=== PATIENT | female | born 1970 | race Caucasian/White ===

== ENCOUNTER 2024-04-10 07:34 | Emergency (ER) | payer OTHER, SELFPAY ==
--- NOTE | ~2024-04-10 | US_ITS ---
EXAMINATION: US LOWER EXTREMITY VEINS LIMITED FOLLOW UP RIGHT HISTORY: pain, swelling hx of PE COMPARISON: There are no prior studies for comparison. TECHNIQUE: Duplex and color Doppler sonographic examination of the deep venous system of the right lower extremity was performed. FINDINGS: The common femoral, superficial femoral, and popliteal veins are patent demonstrating normal compressibility, spontaneous flow, and augmentation. There is a normal color and spectral Doppler waveform appearance of the visualized deep venous system above the knee. The posterior tibial and peroneal veins are patent. US/US venous duplex LE RT IMPRESSION: No evidence of acute DVT in the right lower extremity. Electronically signed by: Justo Rodriguez MD 04/10/2024 09:06 AM AARON
[2024-04-10 07:37] VITALS: BP 209/83; PULSE 87; RESP 16; TEMP 36.7; O2SAT 98; BMI 34.8
--- NOTE | 2024-04-10 07:54 | ED_ITS ---
HPI - Extremity Problem General Chief complaint: Extremity Problem Stated complaint: blood clot? Time Seen by Provider: 04/10/24 07:45 Source: patient and old records reviewed Mode of arrival: ambulatory Limitations: no limitations History of Present Illness ED Provider: AWILDA IRELAND Narrative: 53 yo female with PMH of varicose veins and PE in 2006 was on thinner for 6 months states it was unprovoked but she had negative heme work up. She notes she is currently undergoing work up for breast cancer and just had double mastectomy at [facility] 03/25 - she is healing well. She did complete 6 days of lovenox therapy. She denies CP/SOB. She states for the past few days R posterior knee pain and swelling along lateral varicose vein. She wants to make sure it is not a clot. She is not sure if she hit it against something. Complaint: extremity pain Onset (ago): day(s) (couple) Pain Consistency: constant Location: right and lower extremity Quality: dull Radiation: none Relieving factors: nothing Exacerbating factors: palpation Associated symptoms: denies other symptoms Context: other (hx of PE and recent surgery 03/25/24) Related Data Previous Rx's ?Medication ?Instructions ?Recorded apixaban 5 mg (74 tabs) tablets in 5 mg PO BID #74 ea 04/10/24 a dose pack (Eliquis DVT-PE Treat 30D Start) Allergies Allergy/AdvReac Type Severity Reaction Status Date / Time prochlorperazine Allergy Involuntary Verified 04/10/24 07:40 [From Compazine] Spasms Sulfa (Sulfonamide Allergy Rash Verified 04/10/24 07:40 Antibiotics) Review of Systems 2 Review of Systems: Constitutional : No Fever, No Chills ENT/Mouth : No Ear Pain, No Hoarseness, No sore throat Eyes: No Eye Pain, No Swelling, No Redness, No Foreign Body Cardiovascular : No Chest Pain, No SOB Respiratory : No Cough, No Dyspnea Gastrointestinal : No Nausea, No Vomiting, No Diarrhea, No abdominal Pain Genitourinary : No Dysuria, No Hematuria Musculoskeletal : positive joint pain, No Myalgias, No Joint Swelling Skin : No Skin lacerations, No rash Neuro : No Weakness, No Numbness, No Loss of Consciousness, No Dizziness, No Headache All other systems reviewed and are negative COUNTS INCLUDE 234 BEDS AT THE [facility] Past Medical History Attestation statement: The following information was validated with the patient. Medical History Pulmonary embolus Varicose vein of leg Breast cancer Social History Social History (Updated 04/10/24 @ 08:02 by Miranda Parish DO) Patient Tobacco Use Status: Never used Tobacco Advance Directives: Yes Advance Directives Information Provided: Yes Advance Directives on File: No Physical Exam 2 Vital Signs: Vital Signs: Last Vital Signs Temp 98.0 F 04/10/24 10:56 Pulse 87 04/10/24 10:56 Resp 16 04/10/24 10:56 BP 167/76 H 04/10/24 10:56 Pulse Ox 98 04/10/24 07:37 O2 Del Method Room Air 04/10/24 07:37 BMI result Body Mass Index 34.8 Appearance: Alert. Oriented X3. No acute distress. Eyes: Pupils equal, round and reactive to light. ENT: Pharynx normal. Neck: Normal inspection. Neck supple. CVS: Normal heart rate and rhythm. Pulses normal. Respiratory: No respiratory distress. Breath sounds normal. Abdomen: Soft and nontender. Skin: Skin warm and dry. Normal skin color. Normal skin turgor. Extremities: No lower extremity edema. R superficial warmth and mild redness to superficial varicose vein that feels ropy Neuro: Oriented X 3. No motor deficit. No sensory deficit. CN2-12 intact Medical Decision Making Medical Decision Making [facility] Narrative: 53 yo female with PMH of varicose veins and unprovoked PE in 2006 now here with recent surgery did complete 6 days of lovenox now here with what looks like a R superficial thrombophlebitis on clinical exam. She has no CP/SOB to suggest VTE. At this time basic labs and US to evaluate for DVT ordered. Differential Diagnosis Differential Diagnoses: The differential diagnosis associated with the presentation includes DVT, superficial thrombophlebitis Admission/Observation Consideration of admission/observation: Escalation of care including admission/observation considered no signs of PE at this time given her current oncology work up, prior DVT, > 5cm in length I am going to start on eliquis. patient aware and agrees Lab Data [facility] Lab Attestation statement: I reviewed the patient's lab results. 04/10/24 07:58 04/10/24 07:58 Labs: Lab Results 04/10/24 Range/Units 07:58 WBC 12.4 H (4.8-10.8) X10*3/uL RBC 4.11 L (4.20-5.50) X10*6/uL Hgb 12.8 (12.0-16.0) g/dl Hct 38.6 (37.0-47.0) % MCV 93.9 (80.0-98.0) fL MCH 31.1 (27.0-33.0) pg MCHC 33.2 (31.0-35.0) g/dl RDW 13.5 (11.0-16.0) % Plt Count 239 (160-400) X10*3/uL MPV 10.0 (9.4-12.3) fL Immature Gran % (Auto) 3.2 H (0.0-0.4) % Neut % (Auto) 51.1 (45-73) % Lymph % (Auto) 25.5 (20-40) % Alcorn % (Auto) 8.0 (2-11) % Eos % (Auto) 11.0 H (0-4) % Baso % (Auto) 1.2 (0-2) % Lymph # (Auto) 3.2 (1.2-4.9) X10*3/uL Alcorn # (Auto) 1.0 (0.1-1.2) X10*3/uL Eos # (Auto) 1.4 H (0.0-0.4) X10*3/uL Baso # (Auto) 0.2 (0.0-0.2) X10*3/uL Abs Immat Gran (auto) 0.40 H (0.00-0.03) X10*3/uL Absolute Neuts (auto) 6.4 (2.0-8.3) x10*3/uL Absolute Nucleated RBC 0.000 (0.0-0.012) X10*3/uL Nucleated RBC % (auto) 0.0 (0.0-0.2) /100WBC Sodium 142 (135-145) mmol/L Potassium 4.0 (3.3-5.1) mmol/L Chloride 108 (96-108) mmol/L Carbon Dioxide 24 (22-29) mmol/L Anion Gap 14 (12-20) BUN 13 (9-16) mg/dL Creatinine 0.62 (0.5-1.4) mg/dL Estim Creat Clear Calc 104.5 Estimated GFR > 60 Random Glucose 99 (60-115) mg/dL Calcium 9.6 (8.4-10.2) mg/dL Independent Interpretation I performed an independent interpretation of an: Ultrasound (large superficial clot) Radiology Impression Discussion of test interpretation with radiology: I have reviewed the radiologist's reading. External Record Review External record reviewed: Outpatient record Prescription Management I considered prescription management with: Other (eliquis) Discharge Plan Discharge Clinical Impression: Superficial thrombophlebitis Qualifiers: Superficial thrombophlebitis-Involved body area: lower extremity Laterality: r ight Qualified Code(s): I80.01 - Phlebitis and thrombophlebitis of superficial vessels of right lower extremity Patient Disposition: Home, Self-Care Instructions: Apixaban (By mouth), Superficial Thrombophlebitis (ED) Additional Instructions: return for hitting head, bleeding that won't stop, increased redness, chest pain trouble breathing call your surgeon today follow up with vascular it is a very large superficial clot but the concern with your prior DVT/malignancy that there is the possibility of propagation or inability to to resolve the clot Prescriptions: New Eliquis DVT-PE Treat 30D Start 5 mg (74 tabs) tablets,dose pack 5 mg PO BID Qty: 74 0RF Rx Instructions: initial dose is 10mg BID for 1 week followed by 5mg BID Referrals: [facility] [place] [facility] Services [Provider Group] (call to schedule appointment) Interventions: ED Discharge Assessment Last Done: 04/10/24 10:56 Discharge Date/Time: 04/10/24 10:57 Print Language: Urdu
[2024-04-10 08:02] LABS: MANUAL DIFF FLAG NO
[2024-04-10 08:03] LABS: Basophils Absolute Auto 0.2 X10*3/uL (0.0-0.2); Basophils Percent Auto 1.2 % (0-2); Eosinophils Absolute Auto 1.4 X10*3/uL (0.0-0.4); Hematocrit 38.6 % (37.0-47.0); Hemoglobin 12.8 g/dl (12.0-16.0); Imm Gran Pct Auto 3.2 % (0.0-0.4); Lymphocytes Absolute Auto 3.2 X10*3/uL (1.2-4.9); Lymphocytes Percent Auto 25.5 % (20-40); Mean Corpuscular HGB Conc 33.2 g/dl (31.0-35.0); Mean Corpuscular Hemoglobin 31.1 pg (27.0-33.0); Mean Corpuscular Volume 93.9 fL (80.0-98.0); Neutrophils Absolute Auto 6.4 x10*3/uL (2.0-8.3); Neutrophils Percent Auto 51.1 % (45-73); Platelet Count 239 X10*3/uL (160-400); Red Blood Count 4.11 X10*6/uL (4.20-5.50); Red Cell Distribution Width 13.5 % (11.0-16.0); White Blood Count 12.4 X10*3/uL (4.8-10.8)
--- OUTSIDE RECORDS SUMMARY | 2024-04-10 08:06 | XMS_ITS | Data Portability ---
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 Perform left shoulder abduction without pain. 2. Perform left sidelying without shoulder pain. Bag Bailer Goals: In 8 weeks, patient will: 1. Demonstrate pain free active, passive and resisted motions of the left shoulder. 2. Reach behind her back without left shoulder pain. 3. Lift and carry 15 pounds without left shoulder pain. 4. Demonstrate independence with comprehensive HEP. Subjective : My shoulder is aggravated, it was hurting when I went to bed. It's nowhere near where it was at the beginning, but it's still noticeable. Objective : -inc tension L biceps, brachialis, deltoid, pec minor, pec major Therex : -reviewed HEP w/ pt, no additions this date. -Reviewed goals and plan of care w/ pt. Manual Therapy : -STM and TPR L upper trap, pec minor, pec major, biceps, deltoid, brachialis -CFM L biceps LHT, pec minor at coracoid process Assessment : Patient continues to experience an increase in L UE pain following performance of HEP. Symptoms this are morning are the most irritated they have been since starting PT, and pt is once again having difficulty sleeping. Pt referred back to PCP for further follow-up. She reports moderate pain relief following manual therapy. Plan : discharge from PT. Access Code: [email or web address] URL: [email or web address] Date: 08/10/2022 Prepared by: Cindy De La Fuente Exercises - Seated Shoulder Inferior Byers - 3 x daily - 7 x weekly - 1 sets - 3 reps - 15 hold - Doorway Pec Stretch at 60 Degrees Abduction with Arm Straight - 3 x daily - 7 x weekly - 1 sets - 3 reps - 15 hold - Standing Single Arm Elbow Flexion with Resistance - 1 x daily - 7 x weekly - 1 sets - 5-10 reps - Shoulder External Rotation and Scapular Retraction with Resistance - 1 x daily - 7 x weekly - 1 sets - 10 reps - Shoulder Flexion Serratus Activation with Resistance - 1 x daily - 7 x weekly - 1 sets - 10 reps [email or web address] Not available 08/17/2022 08:38:08 12/24/2023 12/24/2023 Final Diagnosis: Breast, Left, upper inner quadrant, 7 cm from nipple, ultrasound guided core needle biopsy (Ribbon clip): - Invasive ductal carcinoma, grade 1. A. Histologic Newport score (tubule formation score: 2; nuclear pleomorphism score: 1-2; mitotic count score: 1) B. Invasive carcinoma involves 5 of 5 cores and measures 6 mm in greatest linear dimension. C. Focal signet ring cell features present; focal punctate necrosis present. D. Lymphovascular space involvement is not identified. - Microcalcifications present in invasive tumor and in benign glands. Immunohistochemical studies are performed; the results are as follows: A. E-cadherin: Strong diffuse membranous staining pattern in tumor cells. B. p120: Strong diffuse membranous staining pattern in tumor cells. Interpretation: Immunohistochemical results support mammary carcinoma of ductal phenotype. Semiquantitative immunohistochemical evaluation for estrogen and progesterone receptors (Ethan score): A. Estrogen Receptor: Positive in invasive tumor cells. (percentage score 5+ intensity score 3= total score 8) B. Progesterone Receptor: Positive in invasive tumor cells. (percentage score 5+ intensity score 3= total score 8) Semiquantitative immunohistochemical evaluation for HER-2/sen protein (ASCO/CAP 2018): A. c-erb B2 (HER-2/sen protein) result: Negative(1+) Surgical consultation is indicated. The dimensions of the lesion are estimated to be 0.8 x 0.7 x 0.7 cm by ultrasound . The lesion is marked by a ribbon-shaped clip. The patient verbally consented to receive services via telehealth. Telehealth consultation was performed by me via telephone on 12/20/2023. The biopsy results were discussed with the patient. She understands the significance of the pathologic findings. The patient describes no fever, chills, or drainage from the biopsy site. As per previous agreement, responsibility for follow-up care was transferred to the Specialists at the [facility] [place]. An appointment was made for consultation with Dr. Bautista on 12/30/2023. Radiologist is recommending biopsy of a borderline left lymph node given the pathology results. Biopsy appointment is December 31, 2023. 10 minutes of nurse practitioner time were spent with the patient discussing the significance of the biopsy results and discussing the recommended management and follow-up care with the patient. PATIENT LETTER: Not needed because the biopsy results were discussed with the patient. I have personally reviewed the images and I agree with this report. WSN: [id number] Ordering Physician: Raysa Noriega Dictated By: Dorinda Ann NP Dictated Date/Time: 12/20/23 2:32 pm Reviewed By: Rox Mosquera MD Signed By: Rox Mosquera MD Signed Date/Time: 12/20/23 2:37 pm Transcribed By: ALIYA Environmental Sustainability Manager Date/Time: 12/20/23 1:33 pm Birads: Assessment & Plan Breast Cancer Recently diagnosed, awaiting further details on marker testing and treatment plan. Lymph node biopsy scheduled for next week. -Coordinate care with oncology team at [facility]. -Review results from [facility] once received. Hypertriglyceridemia Slightly elevated triglycerides noted on previous labs. -Encourage continued healthy diet and lifestyle. -Consider repeating lipid panel at next visit. Follow-up in 3 months to ensure continuity of care and address any new concerns. [email or web address] Not available 12/26/2023 08:13:22 Plan of Treatment Reminders Order Date Submit Date Provider Last Modified By Organization Details Last Modified Time Details Appointments [facility] 2024 11:00A M Lucinda Obando Not available Not available Not available LAB Follow-U p 2024 08:25A M [facility] Lab Not available Not available Not available Medical Manageme nt 15 2024 08:00A M ALEX PACHECO, Not available Not available Not available Lab CMP, serum or plasma 2023 [facility] [place], [address] [place] [address], [id number], 03/25/2024 16:12:40 TSH, serum or plasma 2023 [facility] [place], [address] [place] [address], [id number], 03/25/2024 16:12:41 HbA1c (hemoglo bin A1c), blood 2023 [facility] [place], [address] [place] [address], [id number], 03/25/2024 16:12:41 lipid panel, serum 2023 [facility] [place], [address] [place] [address], [id number], 03/25/2024 16:12:40 Referral behavior al health referral - Recent diagnosi s of breast cancer. Patient struggli ng emotiona lly and agreeabl e to therapy referral to help cope with new diagnosi s and continue working. 2023 [email or web address] [facility] [address] [place] [address], [id number], 12/26/2023 08:57:20 Procedures None recorded . Surgeries None recorded . Imaging None recorded . Medication Orders doxazosi n 2 mg tablet 2023 [facility], [address] [place], [address], 02/12/2024 09:11:55 citalopr am 10 mg tablet 2023 024 [id number], [address] [place], [address], 02/12/2024 09:13:08 diltiaze m CD 120 mg capsule, extended release 24 hr 2023 024 [facility], [address] [place], [address], 01/17/2024 15:20:11 sertrali ne 25 mg tablet 2023 024 [facility], [address] [place], [address], 12/24/2023 08:49:13 Patient TargetsNo targets recorded. Patient InstructionsNo instructions recorded. Reason for Referral Behavioral Health Referral f or Anxiety state Recent diagnosis of breast cancer. Patient struggling emotionally and agreeable to therapy referral Recent diagnosis of breast cancer. Patient struggling emotionally and agreeable to therapy referral to help cope with new diagnosis and continue working. Referring Physician: Alex Pacheco, Family Medicine, Encounter Date: 12/24/2023 Results Created Date Observation Date Name Description Value Unit Range Abnormal Flag Note LastModifiedBy Organization Detail LastModifiedTime 11/29/1911/06/2023 MAMMO , scree princess No observ ation record ed. [email or web address] [facility] [address] [place], [address], 01/03/2024 14:22:55 11/29/19 24 11/20/2023 MAMMO , diagn ostic , unila teral No observ ation record ed. [email or web address] [facility] [address] [place], [address], 01/03/2024 14:22:55 11/29/19 24 11/20/2023 , mehul monet, unila teral No observ ation record ed. [email or web address] [facility] [address] [place], [address], 01/03/2024 14:22:55 01/07/20 24 01/07/2024 mehul MARIE bilat eral, limit ed No observ ation record ed. [email or web address] [facility] [address] [place] [address] [place], [address], 01/09/2024 11:56:49 01/08/20 24 01/08/2024 US, mehul monet, bilat eral, limit ed No observ ation record ed. [email or web address] [facility] [address] [place], [address], 01/09/2024 11:56:49 Result Notes None recorded. Problems Name Problem SNOMED Code Status Onset Date Resolution Date Notes Provider Name and Address Organization Details Recorded Time Sleep apnea 45829848 Active Zehra Mckinnon MD [address] [place], [place] [address] [place], [address], [facility] 6 11:27:34 Herpes simplex 91282569 Active 2017 Yaritza Casper NP [address] [place], [place] [address], [address], [facility] 8 09:00:33 Asthma 273644085 Active 2018 Yaritza Casper NP [address] [place], [place] [address], [address], [facility] 9 10:51:56 Hyperten sive disorder 72817666 Active 2018 Yaritza Casper NP [address] [place], [place] [address], [address], [facility] 9 11:06:11 Obesity 868012180 Completed 201311/30/2021 ISABELLE Orr, [facility] 2 12:08:08 Morbid obesity 737992693 Active 2021 BMI > or = 35 plus diagnosis of HTN. 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 Zehra Mckinnon MD [address] [place], [place] [address], [address], [facility] 6 11:27:34 Dysuria 40902682 Completed 04/01/2011 Zehra Mckinnon MD [address] [place] [address] [place], [address], [facility] 6 11:27:34 Acute upper respirat ory infectio n 29733151 Completed 04/01/2011 Zehra Mckinnon MD [address] [place], [place] [address], [address], [facility] 6 11:27:34 Influenz a 2689137 Completed 04/01/2011 Zehra Mckinnon MD [address] [place], [place] [address], [address], [facility] 6 11:27:34 Abdomina l pain 33931510 Completed 200804/01/2011 Zehra Mckinnon MD [address] [place], [place] [address], [address], [facility] 6 11:27:34 Urinary tract infectio us disease 52362045 Completed 04/01/2011 Zehra Mckinnon MD [address] [place], [place] [address], [address], [facility] 11:27:34 Problem Notes None recorded. Procedures Surgical History Date Name Laterality Status Provider Name and Address Organization Details Recorded Time 08/18/19 59178: Therapeutic Exercise completed Cindy Delvalle, PT [address] [place], [address], [facility] 08/17/2022 08:03:33 08/18/19 38159: Manual Therapy completed Cindy Delvalle, PT [address] [place], [address], [facility] 08/17/2022 08:03:33 08/11/19 94959: Therapeutic Exercise completed Cindy Delvalle, PT [address] [place], [address], [facility] 08/10/2022 07:33:11 08/11/19 23 25448: Manual Therapy completed Cindy Delvalle, PT [address] [place], [address], [facility] 08/10/2022 08:46:40 08/04/19 60608: Therapeutic Exercise completed Cindy Delvalle, PT [address] [place], [address], [facility] 08/03/2022 08:48:13 08/04/19 23 51601: Manual Therapy completed Cindy Delvalle, PT [address] [place], [address], [facility] 08/03/2022 08:48:15 07/28/19 Smoking Cessation Counselling completed Cindy Delvalle, PT [address] [place], [address], [facility] 07/27/2022 07:19:57 07/28/19 Physical Activity Counselling completed Cindy Delvalle, PT [address] [place], [address], [facility] 07/27/2022 07:19:57 07/28/19 76695: PT Eval Low Complexity completed Cindy Delvalle, PT [address] [place], [address], [facility] 07/27/2022 07:19:57 07/28/19 Treatment and Advice completed Cindy Delvalle, PT [address] [place], [address], [facility] 07/28/2022 08:28:13 06/27/19 23 Asthma Control Test (12 + years old) completed RACHELLE Laws [facility] 06/26/2022 10:15:51 02/06/20 19 Asthma Control Test (12 + years old) completed Yajaira Arrington CMA [facility] 02/05/2019 08:25:52 01/16/20 19 POC Urinalysis Testing completed Jackie James [facility] 01/15/2019 09:42:14 12/11/19 19 POC Urinalysis Testing completed Lesvia Fernando LPN [facility] 12/10/2018 12:20:33 08/20/19 19 [facility] 10:07:28 08/20/19 19 IUD Insertion completed Rubens Hopkins MD [address] [place] [address], [address], [facility] 08/22/2018 04:43:25 08/20/19 19 IUD Removal completed Ruthie Infante [facility] 08/19/2018 10:07:26 02/15/20 18 Asthma Control Test (12 + years old) completed Sonu Ibarra [facility] 02/14/2018 08:47:22 11/12/19 14 IUD Insertion completed Lamont Monet MD [address] [place] [address], [address], [facility] 11/12/2013 09:53:02 03/28/19 12 Cholecystectomy completed Lamont Monet MD [address] [place] [address], [address], [facility] 04/01/2011 15:01:33 completed Not Available [facility] 01/11/2011 06:06:16 Imaging Results Imaging Date Name Status LastModified by Organiz ation Details LastModified Time 11/06/2023 MAMMO, screening completed [email or web address] [facility] [address] [place], [address], 01/03/2024 14:22:55 11/20/2023 MAMMO, diagnostic, unilateral completed [email or web address] [facility] [address] [place], [address], 01/03/2024 14:22:55 11/20/2023 US, breast, unilateral completed [email or web address] [facility] [address] [place], [address], 01/03/2024 14:22:55 01/07/2024 US, breast, bilateral, limited completed [email or web address] [facility] [address] [place], [address], 01/09/2024 11:56:49 01/08/2024 US, breast, bilateral, limited completed [email or web address] [facility] [address] [place], [address], 01/09/2024 11:56:49 Procedure Notes None recorded. Medical Equipment None Reported. Allergies Allergen ID Allergen Name Allergen Category Reaction Reaction Severity Criticality Documentation Date Start Date Code Code System Note Provider Name and Address Organization Details Recorded Time 769079 lisinopri l medicatio n rash Not available Not available 12/27/2014 55283 RxNorm Lamont Monet MD [address] [place], [place] [address], [address], [facility] 5 12:32:49 409772 amlodipin e medicatio n edema moderate Not available 03/04/2019 56614 RxNorm with shoot ing pain Nelly Waddell PA-C [address] [place], [place] [address], [address], [facility] 0 11:29:10 022410 hydrochlo rothiazid e medicatio n edema Not available Not available 06/03/2020 5487 RxNorm foot pain Yaritza Casper NP [address] [place], [place] [address], [address], [facility] 1 09:41:38 04435 Compazine medicatio n other mild Not available 04/14/201072084 6 RxNorm neck spasm s Not Available [facility] 06:05:41 07114 Substance with sulfonami de structure and antibacte rial mechanism of action (substanc e) medicatio n rash Not available Not available 04/14/2010 49392 8003 SNOMED Not Available [facility] 06:05:41 Medications Name Sig Start Date Stop Date Status Note LastModified by Organization Details LastModified Time cyclobenz aprine 10 mg tablet Take 1 tablet(s ) up to 3x/d prn back pain. do not drive if sedated 2013 active Not Available Not Available Not Avai lable amoxicill in 500 mg capsule take 1 capsule by mouth every 8 hours 06/03 completed Pt no longer using 06/03/20 NMT Not Available Not Available Not Available Mirena 21 mcg/24 hr (up to 8 years) 52 mg intrauter ine device Take 1 device by intraute rine route. 2018 active NOT USING 01/17/24 mk Not Available Not Available Not Available acetamino phen 325 mg tablet TAKE TWO TABLETS BY MOUTH EVERY 6 HOURS FOR 14 DAYS NEEDED FOR PAIN active Not Available Not Available No t Available fluconazo le 150 mg tablet take 1 tablet by mouth A ONE TIME DOSE 12/10 completed Not Available Not Available Not Available citalopra m 10 mg tablet Take 1 tablet every day by oral route for 30 days. active Not Available Not Available No t Available lidocaine 4 % topical cream APPLY ONE APPLICAT ION TOPICALL Y TWICE A DAY. APPLY AROUND BOTH AREOLAS, 1 HOUR PRIOR TO ARRIVAL FOR SURGERY AND COVER WITH SARAN WRAP. active Not Available Not Available No t Available Pyridium 200 mg tablet Take 1 tablet 3 times a day by oral route for 2 days. 10/25 completed Not Available Not Available Not Available clobetaso l 0.05 % topical cream APPLY TO AFFECTED AREA S) TOPICALL Y ONCE A DAY FOR A MONTH, THEN DECREASE USE TO ONCE A WEEK FOR MAINTENA NCE active Not Available Not Available No t Available amlodipin e 2.5 mg tablet take 1 tablet by mouth once daily 02/05 completed Not Available Not Available Not Available metronida zole 500 mg tablet Take 1 tablet every 12 hours by oral route for 7 days. 2014 active Not Available Not Available Not Avai lable ciproflox acin 250 mg tablet Take 1 tablet every 12 hours by oral route for 3 days. 10/26 completed Not Available Not Available Not Available amlodipin e 5 mg tablet take 1 tablet by mouth once daily 03/04 completed Foot pain Not Available Not Available Not Available valacyclo vir 500 mg tablet TAKE 1 TABLET BY MOUTH DAILY 2021 active PRN Not Available Not Available Not Avai lable Depo-Prov era 150 mg/mL intramusc ular suspensio n Inject 1 mL every 3 months by intramus cular route for 1 day. 2012 active Not Available Not Available Not Avai lable IBU 600 mg tablet TAKE ONE TABLET BY MOUTH EVERY 6 HOURS FOR 14 DAYS ALTERNAT ING EVERY 6 HOURS WITH TYLENOL. active Not Available Not Available No t Available cephalexi n 500 mg capsule TAKE ONE CAPSULE BY MOUTH FOUR TIMES A DAY FOR 5 DAYS active Not Available Not Available No t Available Ocuflox 0.3 % eye drops Instill 1 drop 4 times a day by ophthalm ic route for 10 days. 04/04 completed Not Available Not Available Not Available fluoxetin e 20 mg tablet Take 1 tablet every day by oral route. 2010 active Not Available Not Available Not Avai lable nystatin 100,000 unit/gram topical cream APPLY TO THE AFFECTED AREA(S) BY TOPICAL ROUTE 2 TIMES PER DAY as needed 08/22 completed Not Available Not Available Not Available lisinopri l 10 mg tablet Take 1 tablet every day by oral route. 2014 active reports taking 5mg daily Not Available Not Available Not Available losartan 25 mg tablet Take 1 tablet every day by oral route for 90 days. 2024 active Not Available Not Available Not Avai lable hydrochlo rothiazid e 12.5 mg capsule TAKE ONE TABLET BY MOUTH ONCE DAILY 06/05 completed Pt no longer using, had bad s/e 06/03/20 NMT Not Available Not Available Not Available sertralin e 25 mg tablet TAKE ONE TABLET BY MOUTH EVERY DAY active Not Available Not Available No t Available diltiazem CD 120 mg capsule,e xtended release 24 hr TAKE 1 CAPSULE EVERY DAY BY ORAL ROUTE active Not Available Not Available No t Available monteluka st 10 mg tablet Take 1 tablet every day by oral route. 2013 active Not Available Not Available Not Avai lable bisacodyl 5 mg tablet,de layed release TAKE FOUR TABLETS BY MOUTH X 1 DAY 08/29 completed Not Available Not Available Not Available hydrochlo rothiazid e 25 mg tablet Take 1 tablet every day by oral route. 2013 active Not Available Not Available Not Avai lable levofloxa bryson 750 mg tablet 08/19 completed Not Available Not Available Not Available methylpre dnisolone 4 mg tablets in a dose pack 06/05 completed Not Available Not Available Not Available albuterol sulfate HFA 90 mcg/actua tion aerosol inhaler Inhale 1 puff three times a day as needed for wheezing . active Not Available Not Available No t Available norethind bronwyn (contrace ptive) 0.35 mg tablet Take 1 tablet every day by oral route. 2013 active Not Available Not Available Not Avai lable loratadin e 10 mg tablet Take 1 tablet every day by oral route. 2010 active Not Available Not Available Not Avai lable naproxen 500 mg tablet TAKE 1 TABLET BY MOUTH TWICE DAILY WITH MEALS FOR 14 DAYS 06/26 completed Not Available Not Available Not Available doxazosin 2 mg tablet Take 1 tablet every day by oral route at bedtime for 30 days. active Not Available Not Available No t Available amoxicill in 875 mg-potass ium clavulana te 125 mg tablet Take 1 tablet every 12 hours by oral route for 10 days. 2014 active Not Available Not Available Not Avai lable oxycodone 5 mg tablet TAKE ONE TABLET BY MOUTH EVERY 6 HOURS NEEDED FOR PAIN active Not Available Not Available No t Available Daily Multi-Vit cartwright tablet take 1.00 cap daily active Not Available Not Available No t Available enoxapari n 40 mg/0.4 mL subcutane ous syringe INJECT 1 SYRINGE 0.4 ML) UNDER THE SKIN DAILY FOR 7 DAYS active Not Available Not Available No t Available medroxypr ogesteron e 150 mg/mL intramusc ular syringe INJECT 1ML EVERY 3 MONTHS 2012 active Not Available Not Available Not Avai lable clobetaso l 0.05 % lotion APPLY A THIN LAYER TO THE AFFECTED AREA(S) BY TOPICAL ROUTE 2 TIMES PER DAY active Not Available Not Available No t Available Lexapro 5 mg tablet take 1/2 tab daily x3d, then 1tab daily x1week, then 1.5tabs daily x 1week, then 2 tabs daily. then call for refill 2014 active pt. stopped this med due to side effects Not Available Not Available Not Available nitrofura ntoin monohydra te/macroc rystals 100 mg capsule Take 1 capsule twice a day by oral route for 7 days. 2014 active Not Available Not Available Not Avai lable Flovent HFA 44 mcg/actua tion aerosol inhaler Inhale 2 puffs 2x/d, can decrease to 1 puff 2x/d, and then stop if well controll ed 2013 active Not Available Not Available Not Avai lable Flovent HFA 110 mcg/actua tion aerosol inhaler take 2 inhalati ons twice daily active Not Available Not Available No t Available Jen-D 24 Hour 180 mg-240 mg tablet,ex tended release Take 1 tablet every day by oral route. 02/05 completed Pt not taking 02/05/19 NMT Not Available Not Available Not Available Mirena use as directed active Removed Not Available Not Available No t Available Vitamin D3 10 mcg (400 unit) capsule take 3.00 caps daily active Not Available Not Available No t Available diclofena c 1 % topical gel APPLY 2 GRAMS TO THE AFFECTED AREA(S) BY TOPICAL ROUTE 4 TIMES PER DAY active Not Available Not Available No t Available GaviLyte- G 236 gram-22.7 4 gram-6.74 gram-5.86 gram oral solution PT HAS INSTRUCT IONS 08/29 completed Not Available Not Available Not Available Zyrtec 10 mg capsule take 1.00 cap daily active Not Available Not Available No t Available Vitamin D3 50 mcg (2,000 unit) capsule Take by oral route. 06/05 completed Not Available Not Available Not Available Flonase Allergy Relief 50 mcg/actua tion nasal spray,juan pension [place] 1 spray every day by intranas al route. active Not Available Not Available No t Available BinaxNOW COVID-19 Ag Self Test kit Use as Directed on the Package 06/05 completed Not Available Not Available Not Available Vitals Date Recorded Body height Heart rate Oxygen saturation Oxygen saturation in Arterial blood by Pulse oximetry Body mass index (BMI) Body weight Systolic blood pressure Diastolic blood pressure Provider Name and Address Organization Details Last Updated DateTime 3 156.85 cm 78 /min 98 % 98 % 33.6 kg/m2 20414.8 1 g 132 mm[Hg] 78 mm[Hg] [facility] 3 08:02:30 Date Recorded Body height Body mass index (BMI) Body weight Oxygen saturation Oxygen saturation in Arterial blood by Pulse oximetry Heart rate Systolic blood pressure Diastolic blood pressure Provider Name and Address Organization Details Last Updated DateTime 4 156.85 cm 33.6 kg/m2 39782.8 1 g 98 % 98 % 77 /min 130 mm[Hg] 78 mm[Hg] [facility] 4 08:15:42 Date Recorded Body height Body mass index (BMI) Body weight Heart rate Systolic blood pressure Diastolic blood pressure Provider Name and Address Organization Details Last Updated DateTime 4 156.85 cm 36.8 kg/m2 20829.9 8 g 76 /min 160 mm[Hg] 90 mm[Hg] [facility] 4 15:00:37 Date Recorded Body height Body mass index (BMI) Body weight Oxygen saturation Oxygen saturation in Arterial blood by Pulse oximetry Heart rate Systolic blood pressure Diastolic blood pressure Provider Name and Address Organization Details Last Updated DateTime 4 156.85 cm 36.7 kg/m2 48203.8 8 g 98 % 98 % 83 /min 154 mm[Hg] 90 mm[Hg] [facility]asi[facility] 4 08:59:16 Date Recorded Systolic blood pressure Diastolic blood pressure Provider Name and Address Organization Details Last Updated DateTime 10/04/2023 130 mm[Hg] 78 mm[Hg] [facility] 10/04/2023 11:09:33 Social History Question Answer Notes LastModified by Organizat ion Details LastModified Time Tobacco Smoking Status Former Smoker quit age 17yo Lamont Monet MD [address] [place] [address], [id number], [facility] 04/14/2010 09:31:01 What Is Your Level Of Alcohol Consumption? Occasional One Drink A Month Information not available 01/10/2017 Do You Wear A Helmet When Biking? No N/a Information not available 01/10/2017 What Is Your Level Of Caffeine Consumption? Occasional 2 Cups Daily Information not available 06/26/2022 How Much Tobacco Do You Chew? None Information not available 12/27/2014 What Type Of Diet Are You Following? REGULAR No Junk Food Information not available 04/14/2010 Which Illicit Or Recreational Drugs Have You Used? 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 No Information not available 06/26/2022 How Many Days In The Past Year Have You Had A Heavy Drinking Consumption (4+ Female, 5+ Male)? 0 Information not available 05/26/2013 Are There Any Guns Present In Your Home? No Information not available 06/09/2014 Do You Use Insect Repellent Routinely? Yes Information not available 06/26/2022 Live Alone Or With Others? With Others With Daughter, Gianna Information not available 12/27/2014 Patient Has Health Care Proxy Signed And In Chart Yes Gianna Ellington (daughter) Information not available 12/06/2011 Marital Status Single Informatio n not available 06/14/2011 Mosquito Repellent Used Routinely Yes Information not available 06/09/2014 What Was The Date Of Your Most Recent Tobacco Screening? 02/12/2024 [email or web address] Information not available 02/12/2024 How Many Children Do You Have? 1 Daughter, Young Adult. Information not available 04/14/2010 What Is Your Relationship Status? Single Information not available 06/26/2022 Do You Use Your Seat Belt Or Car Seat Routinely? Yes Information not available 06/26/2022 Seat Belts Used Routinely Yes Information not available 06/09/2014 Are You Sexually Active? No Information not available 12/27/2014 Smoke Alarm In Home Yes Information not available 06/09/2014 Do You Have Smoke And Carbon Monoxide Detectors In Your Home? Yes Information not available 06/26/2022 Are You Passively Exposed To Smoke? No Information not available 06/26/2022 General Stress Level Low kbettgenhauser Information not available 01/10/2017 Do You Use Any Illicit Or Recreational Drugs? No Information not available 06/26/2022 Do You Use Sunscreen Routinely? Yes Information not available 01/22/2018 Do You Or Have You Ever Used Any Other Forms Of Tobacco Or Nicotine? No Information not available 06/26/2022 Sex: Unknown Functional Status Question Answer Note LastModified by Organizat ion Details LastModified Time What is your exercise level? Occasional Walking daily Information not available 06/26/2022 Mental Status None recorded. Family History Relationship Description Onset Age of this Age Resolved Age Notes LastModified by Organization Details LastModified Time Mother Diabetes mellitus yperry Not available 2014 12:23:30 Mother Chronic obstructive pulmonary disease 4ppd smoker yperry Not available 12/27/2014 12:23:30 Mother Malignant tumor of lung 61 yperry Not available 2014 12:23:30 Maternal Uncle Diabetes mellitus yperry Not available 2014 12:23:30 Maternal Grandfather Diabetes mellitus yperry Not available 2014 12:23:30 Father Malignant neoplasm of urinary bladder smoker [email or web address] Not available 2016 09:15:40 Notes:no breast CA, colon CA , GA Medical History Condition Response Allergic Rhinitis Y Obesity Y INFECTIOUS DISEASE Y RESPIRATORY Y Irritable Bowel Syndrome Y Sleep Apnea Y GERD Y Gynecological History Statement/Question Response History of Abnormal Pap N Date of LMP Obstetrics History GPAL:G 0 P 0 0 0 0 Immunizations Vaccine Type Date Status Note Provider Nam e and Address Organization Details Recorded Time Influenza, split virus, trivalent, preservative 2 completed Not Available [facility] 03/14/2019 02:27:39 Tdap 2 completed Not Available [facility] 03/14/2019 02:25:09 Influenza, split virus, quadrivalent, PF 9 completed Not Available [facility] 03/14/2019 02:27:07 COVID-19, mRNA, LNP-S, PF, 100 mcg/0.5mL dose or 50 mcg/0.25mL dose 1 completed Yaritza Casper, LOIDA [address] [place] [address], [phone], [facility] 06/03/2020 09:38:43 Td (adult), 5 Lf tetanus toxoid, preservative free, adsorbed 3 completed [facility] 06/26/2022 11:13:12 Influenza, split virus, quadrivalent, preservative 2 completed JASPAL Woods, [facility] 12/04/2021 08:57:30 Past Encounters Encounter ID Performer Location Encounter Start Date Encounter Closed Date Diagnosis/Indication Diagnosis SNOMED-CT Code Diagnosis ICD10 Code Diagnosis Note [id number] LAB - [facility] [address] [place] [address] 04/01/2008 14:33:54 04/01/2008 14:34:20 [id number] , [facility], OFFICE [address] [facility] [address] 04/14/2010 08:55:51 04/20/2010 10:17:59 [id number] , [facility], OFFICE [address] [place] [address] 05/12/2010 09:16:37 05/17/2010 12:24:48 [id number] Radiology , [address] [address] 05/18/2010 09:57:10 05/19/2010 11:41:09 [id number] , [facility], OFFICE [address] [place], [place] [address] [place] [address] 10/23/2010 11:54:33 10/23/2010 12:53:26 [id number] [facility], OFFICE [address] [place] [address] 03/10/2011 13:36:24 03/10/2011 14:14:02 [id number] Radiology , [facility] [address] [place] [address] 03/12/2011 14:52:59 03/14/2011 15:02:14 [id number] , [facility], OFFICE [address] [place] [address] 03/20/2011 13:38:36 03/20/2011 14:05:55 [id number] , [facility], OFF[address] [facility] [place] [address] 06/14/2011 09:33:05 06/14/2011 10:14:58 [id number] [facility] , [facility] [address] [facility] [place] [address] 07/20/2011 13:00:46 07/24/2011 09:48:19 [id number] , [facility], OFF[address] [facility] [place] [address] 09/26/2011 11:28:11 09/26/2011 12:40:43 [id number] Ana Luisa Malave RN , [facility], OFF[address] [facility] [place] [address] 12/06/2011 10:47:45 12/06/2011 11:58:38 [id number] Ana Luisa Malave RN , [facility], OFF[address] [facility] [place] [address] 02/28/2012 08:57:43 02/28/2012 09:14:48 [id number] Ana Luisa Malave RN , [facility], OFF[address] [facility] [place] [address] 03/25/2012 08:02:36 03/25/2012 08:24:21 [id number] Ana Luisa Malave RN , [facility], OFF[address] [facility] [place] [address] 06/03/2012 13:59:36 06/03/2012 15:06:19 [id number] Ana Luisa Malave RN , [facility], OFF[address] [facility] [place] [address] 08/19/2012 11:16:44 08/19/2012 11:47:59 [id number] NEIDA Delaney, [facility], OFF[address] [facility] [place] [address] 11/07/2012 09:27:18 11/07/2012 10:43:44 Education [id number] , [facility], [address] [facility] [place] [address] 05/12/2013 11:59:40 05/12/2013 13:00:26 Fatigue 20454565 will be seeing sleep med to set up sleep study, check labs Palpitations 12901343 se e rec's below Elevated blood-pressure reading without diagnosis of hypertension 310574065 pt very anxious today, she will check home BPs and call if >140/90. will be going for sleep study. [id number] Elin SHORT, [facility], [address] [place] [address] 05/20/2013 09:37:22 05/20/2013 10:14:04 Palpitations 74715698 stress test neg, so reassured likely not CAD. but ervin check event monitor to assess for arrhythmia . f/u 1mo Essential hypertension 12201903 new, was higher in ED, will strart ACEI for now. w/ weight loss and potentiall y rx for LANA, may be able to wean off. call if side effects., f/u 1mo [id number] Elin SHORT, [facility], OFFICE [address] [place] [address] 05/26/2013 10:03:23 05/26/2013 10:56:26 Adult health examination 519329543 see Risk Assessment and Lifestyle Change Counseling section above. pt would decline mammo until 48 given no risk fx. Counseling 131903319 Allergic rhinitis 55042520 anti-hist may be triggering palpitatio ns, so switch to singulair Low back pain 074780942 see below Essential hypertension 42688799 very well controlled on very los dose ACEI- will likley be able to d/c w/ weight loss and possibly CPAP if needed Insomnia 981247117 will see sleep med this mo and have sleep study [id number] RACHELLE Shaw, [facility], OFFICE [address] [place] [address] 07/22/2013 10:28:16 07/22/2013 11:16:35 Benign essential hypertension 8578205 Blood pressure at goal, but may have ACEI cough, so switch to HCTZ Asthma 674464338 start inhaled steroid, f/u 1mo, sooner if not improving [id number] MD HAN Hoffman, [facility], [address] [place] [address] 08/24/2013 13:25:42 08/24/2013 13:59:50 Benign essential hypertension 6700322 Blood pressure at goal off med, so will cont to work on losing weight and cont to monitor BPs. Palpitations 20060439 w/ u was neg, very infrequent now, seems related to GI gas. White bloo d cell count outside reference range 554032688 had repeat drawn this AM. is feeling well Obesity 429875887 has started diet, advised to add exercise [id number] , [facility], OFFICE [address] [place] [address] 11/11/2013 08:53:04 11/11/2013 09:43:45 Venereal disease screening 303086850 Dysmenorrhea 505122631 m mitchell inserted today, f/u 1mo Intrauteri ne contraceptive device procedure 325792949 discussed risks, including but not limited to infection, perforatio n, bleeding, expulsion. Pt understand s and agreed to proceed. Also discussed possibilit y of irregular, light, or absent menses. Advised to avoid intercours e for several days, call if heavy bleeding, fever, abd or pelvic pain. Can take ibuprofen prn. Advised that IUD whelan snot protect against STDs. f/u 4-6weeks for string check. [id number] Lesvia Fernando LPN , [facility], OFFICE [address] [place] [address] 12/09/2013 11:34:59 12/09/2013 11:58:53 Sinusitis [id number] call if no improvemen t after 48h, or if worse at any time Premenstru al dysphoric disorder 730335 has not had menses. NOw has mirena and did not have menses w/ prior mirena so likely will have same pattern. call if sx recur [id number] Kalani Cooley , [facility], OFFICE [address] [place] [address] 05/27/2014 13:28:00 05/27/2014 14:06:15 Sprain of wrist 38976788 Xrays normal in ER. Nothing on exam suggestive of snuffbox fx. Recommenda tions as below. [id number] Lamont Monet MD , [facility], OFFICE [address] [place] [address] 06/09/2014 12:51:30 06/09/2014 13:28:34 Benign essential hypertension 5150839 Blood pressure NOT at goal. advised she may be able to get to goal w/ diet and exercise changes leading to wt loss. But during the process of TLC, would be best to conrol BP w/ low dose ACEI. She has taken it in the past and tolerated well. f/u 3mo, sooner prn Sprain of wrist 69153203 advised not to return to her job that requires repetitive wrist motion until sx resolved [id number] Yoko Loya , [facility], OFFICE [address] [place] [address] 08/17/2014 08:27:08 08/17/2014 09:02:03 Upper respiratory infection 97339924 Recommenda tions as below. [id number] Mickie Guadarrama , [facility], OFFICE [address] [place] [address] 12/16/2014 12:02:49 12/23/2014 14:38:12 Upper respiratory infection 49389845 J06.9 nety pot incase this is an early sinius infection, steam, avoid antihistam kt,, call if worse [id number] Lamont Monet MD , [facility], OFFICE [address] [place] [address] 12/27/2014 11:14:13 12/27/2014 12:20:53 Adult health examination 871004618 Z00.00 see Risk Assessment and Lifestyle Change Counseling section above Counseling 561465610 Z71 .9 Dysuria 31235375 R30.9 treat while awaiting culture Benign ess ential hypertension 8099126 I10 Blood pressure at goal but ACEI causing rash, so switch to ARB, f/u 1mo Major depr ession, single episode 84311110 F32.0 discussed risk of increase anxiety w/ lexapro given hx of panic w/ prozac but pt willing to try starting at very low dose, f/u 1mo Eruption c aused by drug 47454103 L27.0 d/c ACEI [id number] Rubens Hopkins MD , [facility], OFFICE [address] [place] [address] 01/11/2015 07:39:12 01/11/2015 08:23:17 Bacterial vaginosis 055221822 N76.0 Vaginal discharge 198673 006 N89.8 Tinea cruris 395252500 B 35.6 [id number] Art Meyer MD , [facility], [address] [place] [address] 01/29/2015 10:00:00 01/29/2015 10:51:45 Suprapubic pain 812377550 R10.33 Patient presents with suprapubic pressure rather than pain. Was concerned about her Mirena IUD placement. The string confirmed in place. No pelvic tenderness or CMT. Leukocytes seen on UA, but negative nitrite or blood. Previously has similar presentati on with negative UCx. Would defer presumptiv e antibiotic treatment at this time. Will follow up with the UCx result. Wet mount negative. Advised to contact the clinic with any worsening symptoms. Indication s for UC/ER use reviewed. [id number] Nate Benítez MD , [facility], OFFICE [address] [place] [address] 03/28/2015 10:23:15 03/28/2015 11:50:28 Abdominal pain 91991310 R10.10 This upper abdominal pain which has been with you for 3 days most likely is related to the radical change in your diet from being off of wheat for a month and then introducin g wheat. You immediatel y felt a sense of sinus fullness and bloating which later developed into abdominal pain. At the emergency room you had normal liver and pancreas tests, and you also had a normal d-dimer which rules out a pulmonary embolus which was important because of your past history of same. On exam today I am not able to elicit any severe pain. The problem may be settling down. I think the diagnosis is either abdominal pain related to introducti on of wheat or possibly a retained gallstone since you had your gallbladde r out in 2011. Plan: Go back to avoiding wheat and other parts of the gluten-rose e diet. Contact us if your pain remains after 5 days or sooner if you are getting worse. You may need special testing to look for a retained stone if that were to occur. After 2 weeks of feeling normal you could try introducin g fat and see if that causes any trouble. With a retained stone you may not be that sensitive to fat as you would be if you still had your gallbladde r. [id number] Daniela Arthur , [facility], OFFICE [address] [place] [address] 08/22/2016 13:08:59 08/22/2016 13:30:56 Foot pain 85636016 M79.671 Metatarsal bone fracture 059385920 S92.301A X-ray demonstrat es fracture at the base of the second metatarsal , well aligned, slightly distracted . Briefly reviewed with Dr. Barry Taveras, recommends walking boot, weightbear ing as tolerated, urgent referral to orthopedic s, may need surgical interventi on. [id number] Yaritza Casper NP , [facility], OFFICE [address] [place] [address] 01/10/2017 08:55:17 01/10/2017 09:34:05 Screening for malignant neoplasm of cervix 466554995 Z12.4 pap done today Adult heal th examination 236291930 Z00.00 Sleep apnea 35497753 G47 .30 hx of mild sleep apnea. never on CPAP. no issues since weight loss! Allergic rhinitis 862931 04 J30.9 will start OTC flonase [id number] Kalani Cooley , [facility], [address] [place] [address] 01/22/2018 08:46:28 01/22/2018 09:21:15 Adult health examination 815525995 Z00.00 see Risk Assessment and Lifestyle Change Counseling section above Counseling 990214271 Z71 .9 - due for pap. 2017 NILM, +HPV- lipids wnl 2017 Depression screening 171 784910 Z13.89 depression screening tool administer ed, entered into emr, scored and discussed, time greater than 7.5 minutes. negative Screening for malignant neoplasm of cervix 020141983 Z12.4 [facility] 110316420 Z30.9 interested in another Mirena. last put in spring 2013. now noticing more spotting over the last year. will send case to [facility] Sleep apnea 76999948 G47 .30 hx of mild sleep apnea. never on CPAP. no issues since weight loss! [id number] MD HAN Moe, [facility], OFFICE [address] [place] [address] 02/14/2018 08:34:41 02/14/2018 09:29:36 Counseling 548065237 Z71.9 Acute uppe r respiratory infection 80138770 J06.9 Cough 84771265 R05 Elevated blood-pressure reading without diagnosis of hypertension 668408647 R03.0 [id number] MD HAN Moe, [facility], OFFICE [address] [place] [address] 06/09/2018 11:29:22 06/09/2018 14:10:57 Acute upper respiratory infection 50095264 J06.9 [id number] Kalani Cooley , [facility], OFFICE [address] [place] [address] 07/16/2018 10:25:27 07/16/2018 11:02:35 Asthma 481085643 J45.909 triggered by allergies- continue jen- start flovent twice a day, rinse mouth after use- albuterol as needed- follow up in 3 weeks, call sooner if breathing worsens Benign ess ential hypertension 3658660 I10 BP not at goal of <130/80. did not tolerate lisinopril or losartan in the past. will start low dose amlodipine and follow up in 3 weeks Pneumonia 564191340 J18. 9 Dx at [facility] in [place] 2 days ago. finish antibiotic s. albuterol as needed [id number] MD HAN Maguire, [facility], OFFICE [address] [place] [address] 08/19/2018 09:58:26 08/19/2018 11:22:35 Removal of intrauterine device 95293140 Z30.432 Insertion of intrauterine contraceptive device 99236862 Z30.430 Contraception care 67234 5005 Z30.40 Benign ess ential hypertension 8421378 I10 [id number] Kalani Cooley , [facility], OFFICE [address] [place] [address] 12/10/2018 12:10:27 12/10/2018 14:26:12 Vaginitis 14727742 N76.0 Exam nonspecifi c. Will send cultures and see what they show. Increased frequency of urination 890955337 R35.0 Pelvic discomfort , not frequency, but will r/o UTI. [id number] Rubens Hopkins MD , [facility], [address] [place] [address] 01/15/2019 09:24:18 01/15/2019 10:22:56 Hypertensive disorder 65188609 I10 Trying lifestyle changes-li sinopril(c ough), losartan(f eet and legs swelled), HCTZ (stopped because of concern about sulf)- Discussed trying the amlodipine and f/u in a few weeks.Med risks and side effects reviewed. Backache 577200898 M54.9 Tylenol , massage, heat.Can consider PTWill see chiropract or. Right flank pain 1491704 09 R10.9 U/A reassuring , improved from last visit. Can check culture.No CVA symptoms. No fevers.Thi s likely muscular since it is reproducib le with movement. Can consider imaging if symptoms persist or worsen and she is encouraged to return if this happens. [id number] Nate Benítez MD , [facility], OFF[address] [place] [address] 02/05/2019 10:52:00 02/05/2019 11:31:40 Hypertensive disorder 64849315 I10 BP not at goal of <130/80 with amlodipine 2.5mg daily. will increase to 5mg daily- work on low salt/neisha josephine diet- continue regular physical activity- follow up at BP clinic in 2-3 weeks. bring BP readings did not tolerate lisinopril or losartan in the past. did not take hctz for c/o sulfa allergy Active or passive immunization 559682626 Z23 flu vaccine today Screening for malignant neoplasm of colon 376925772 Z12.11 discussed. 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 declines colo, will do ifobtx2 annually Foot pain 56681623 M79.6 71 started November/2019 when walking a lot. already scheduled with podiatry on [facility] in [facility] n. Naproxen twice a day with food for 1-2 weeks. ice 20-30 minutes at a time. Essential hypertension 19966741 I10 asymptomat ic. she has not tolerated a number of BP meds. She has not checked her BP in a while. She will check over the next week and report to the portal. BP goal is <130/<80. Also due for labs. She will schedule. continue working on balanced/l ow salt diet and regular physical activity Obesity 354069110 E66.9 interested in nutrition. will send referral [id number] LOIDA Bender, [facility], [address] [place] [address] 06/05/2022 17:01:20 06/05/2022 17:32:33 Screening for malignant neoplasm of colon [id number] Z12.11 Patient declining colonoscop y.Provided FOBT. Pain of le ft shoulder joint [id number] M25.512 Likely RC tendinitis .No weakness or injury to suggest tear.Recom mend PT - pt agreeable. x-ray to check for arthritis/ bone abnormalit ies.Rx: voltaren gelDiscuss ed if symptoms not improving with topical we can try a prednisone burst next.Patie nt will contact us and let us know. Hypertensive disorder 38 [id number] I10 Is not taking any medication s. States she does not do well on them.BP elevated in clinic - states she usually has elevated BP due to nerves in clinic.F/U for annual physical and recheck BP then. [id number] Antonina Seay PA-C , [facility], [address] [place] [address] 06/26/2022 10:06:57 06/26/2022 16:56:04 Adult health examination [id number] Z00.00 Depression screening 171 440863 Z13.31 depression screening tool administer ed Screening for alcohol abuse [id number] Z13.39 Alcohol use screening tool administer ed Essential hypertension 03849785 I10 BP is elevated today, has been the last few visits. But appears to be improving overall. Notes she has been on 4 diff meds. Tried lisinopril , caused cough. CCB caused LE edema. HCTZ has allergy to sulfa and caused feet to ache. Is not wanting to start any meds. Does not eat junk food or fast food. Has lost 15 pounds in the last 9 weeks with weight watchers. Is eating better portions . Exercising walking daily about 5-7k steps daily. Continue to monitor, given BP is improving. Discussed goal <130/80. Kudos and continue the good work! Sleep apnea 02929435 G47 .30 Was tested for it, mild/borde rline. Does not use c-pap. No issues. 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 Not had one since.Woul d like to refer to vascular to discuss again. [id number] Adry Antonio RN Endoscopy , [facility] [address] [place] [address] 07/19/2022 07:51:18 07/19/2022 13:06:42 [id number] Cindy Delvalle, PT Physical Therapy, [address] [address] 07/27/2022 07:19:58 07/30/2022 08:18:29 Pain of left shoulder joint [id number] M25.512 Patient is a 51-year old {{female* male}} who presents to physical therapy with complaint of left shoulder pain which is improving. Physical examinatio n revealed discomfort during left shoulder AROM and resisted testing, pain with palpation of the left biceps LHT and proximal muscle. Patient denies numbness, tingling, or changes in sensation. Findings most consistent with left bicipital tendinopat hy. Patient has mild functional limitation in their ADLs and exercise capacity. Their primary limitation s are with lying on their left side, walking for longer than 10-15 minutes, reaching to the side or behind their back, and lifting or carrying more than 10 pounds. Skilled physical therapy is indicated to safely and progressiv emilia address impairment s and functional limitation s as outlined below. Patient is a candidate for physical therapy due to active lifestyle, good support system, and motivation to actively participat e in their plan of care. Short Term Goals:In 4 weeks, patient will:1. Perform left shoulder abduction without pain.2. Perform left sidelying without shoulder pain. Bag Bailer Goals:In 8 weeks, patient will:1. Demonstrat e pain free active, passive and resisted motions of the left shoulder.2 . Reach behind her back without left shoulder pain.3. Lift and carry 15 pounds without left shoulder pain.4. Demonstrat e independen ce with comprehens joshua HEP. Treatment Plan: Patient to return for 8 visits over 12 weeks. We expect significan t change in pain, impairment and function in this time frame. Treatment to Include: Continuing assessment , therapeuti c exercise, patient education, HEP (initiated ), manual therapy PRN, modalities PRN. [id number] Cindy Delvalle, PT Physical Therapy, [address] [address] 08/03/2022 07:28:39 08/03/2022 10:10:58 Pain of left shoulder joint [id number] M25.375 [id number] Cindy Delvalle, PT Physical Therapy, [address] [address] 08/10/2022 07:29:32 08/10/2022 08:53:39 Pain of left shoulder joint [id number] M25.407 [id number] Cindy Delvalle, PT Physical Therapy, [address] [address] 08/17/2022 07:57:53 08/17/2022 09:16:19 Pain of left shoulder joint [id number] M25.094 [id number] Antonina Seay PA-C , [facility], [address] [place] [address] 08/29/2022 07:54:13 08/29/2022 12:19:36 Skin tag [id number] L91.8 Pulled it off clean/comp letely about 2 weeks ago.Madai irizarry was reviewed in clinic and appears consistent with a skin tag. No evidence of tick bite. No rashes or symptoms concerning for tick borne illness.It is well healed now, no scab or residual pieces left.Likel y secondary to bra strap.Reas sured and reviewed benign nature of skin tags. They are often in areas of friction and can become irritated. In general observatio n is recommende d and insurances will not cover removal for cosmetic purposes. Patients generally develop additional skin tags over time. Treatment of skin tags can be accomplish ed by either freezing them (cryothera py) or by shaving them off. [id number] ALEX PACHECO DO , [facility], [address] [place] [address] 12/24/2023 08:07:23 12/28/2023 12:14:38 Hyperlipidemia screening 426316999 Z13.220 Check lipids, advised to follow a heart healthy diet and; increase exercise. Anxiety state [id number] F41.1 s2/2 new cancer dx.Reports significan t stress and anxiety related to recent cancer diagnosis and potential impact on work and financial stability. Previous trial of Lexapro resulted in panic attacks. -Initiate low-dose Sertraline and monitor for tolerance and efficacy. -Refer to in-house psychologi st and therapists for additional support. Hypertensive disorder 38 669141 I10 Hypertensi onStable blood pressure readings around 130/70. Previous trials of antihypert ensive medication s resulted in adverse effects including leg swelling, neuropathy , and rash.-Cont inue monitoring blood pressure. [id number] Sameera Mcmahan MD , [facility], [address] [place] [address] 01/17/2024 14:50:23 01/17/2024 15:20:20 Hypertensive disorder 92357849 I10 start dlitiazem 120 dailykeep followup with PCP in a few weekscall if concernsbr ing home BP cuff to next visit to calibratep t agrees with plans [id number] ALEX PACHECO DO , [facility], [address] [place] [address] 02/12/2024 08:51:43 02/13/2024 18:07:44 Hypertensive disorder 95623747 I10 Hypertensi onStable blood pressure readings around 130/70. Previous trials of antihypert ensive medication s resulted in adverse effects including leg swelling, neuropathy , and rash.-Cont inue monitoring blood pressure. Anxiety 04278586 F41.9 Discussed most effective treatment options to include daily preventati ve medication and/or treatment strategies from behavioral health specialist . Reinforced that this is a normal physiologi c response that is being triggered at abnormal times. Reviewed concept of as needed medication s for anxiety symptoms. Health Concerns Section Related Observation LastModified by Organization Detai ls LastModified Time None Recorded Concern Status LastModified by Organization Details LastModified Time None Recorded Advance Directives Directive None Recorded Payers Encounter Date Sequence Insurance Name Policy Number Policy Sunshine Covered Member ID Sunshine Member ID Guarantor Name 08/17/2022 1 [facility] Alexia Ellington [id number] Alexia Ellington 08/29/2022 1 [facility] [place] Alexia Ellington [id number] Alexia Ellington 12/24/2023 1 [facility] [place] Alexia Ellington [id number] Alexia Ellington 01/17/2024 1 [facility] [place] Alexia Ellington [id number] Alexia Ellington 02/12/2024 1 [facility] [place] Alexia Ellington [id number] Alexia Ellington Notes Date Note Type Note Provider Name and Address Organization Details Recorded Time 08/29/2022 text/html 08/29/2022 skin ch gala -- wondered if had a tick on her back on 08/18. Noticed under bra line.Pulled it off clean/completely about 2 weeks ago.Picture was reviewed in clinic and appears consistent with a skin tag.It is well healed now, no scab or residual pieces left.Likely secondary to bra strap. Antonina Jacobson jd, PA-C [address] [place] [address], [phone], [facility] 08/29/2022 08:19:38 12/24/2023 text/html 12/24/23- Pt her e today for a follow up appt, check blood pressure, discuss vaccinespt stated has recently been diagnosed with breast cancer. History of Present IllnessThe patient, with a history of hypertension, presents for a blood pressure check and to discuss a recent breast cancer diagnosis. She reports a history of elevated blood pressure, with readings as high as 158/90, but more recently stable around 130. She has tried four different antihypertensive medications, but experienced side effects including leg swelling, neuropathy, and rashes.The patient was diagnosed with breast cancer the previous Saturday, following a biopsy. She is awaiting further results and has an upcoming appointment with an oncologist. She also has a lymph node biopsy scheduled. She reports no family history of breast cancer.The patient also expresses concern about her mental health since the cancer diagnosis. She has a good support system, including her daughter and boyfriend, and tries to stay active by walking daily. She is interested in therapy or support groups and is open to trying medication for anxiety. She has a history of trying Lexapro, which initially was fine but later led to panic attacks.The patient also mentions a history of smoking in her teenage years, but quit at the age of 17. She reports no family history of cardiac issues. Her last set of labs showed a slight water deficiency and slightly elevated triglycerides. ALEX PACHECO DO [address] [place] [address], [phone], [facility] 12/26/2023 08:13:43 01/17/2024 text/html pt presents to tomas piña BP. Recent dx breast cancer. At apts, BP always high. Has cuff at home, but very old. Read 200/?. No CP, SOB Sameera Mcmahan MD [address] [place] [address], [phone], [facility] 01/17/2024 15:21:45 02/12/2024 text/html 02/12/24- Pt her e today for a follow up visitDiscuss medicationsDiscuss new cancer diagnosisDiscuss blood pressures. History of Present IllnessThe patient, with a history of hypertension and anxiety, presents for a follow-up visit. She reports that her home blood pressure readings have been consistently higher than those taken in the clinic, with recent readings as high as 188/85. She has been taking diltiazem for about a month without any adverse effects. She denies using NSAIDs and reports a history of snoring and sleep apnea, which she attributes to allergies.In addition to her hypertension, the patient has been dealing with anxiety. She recently tried Zoloft for about five days but stopped due to feeling flat and disconnected. She expresses a desire to try a different medication for her anxiety, but is concerned about feeling dopey all day.The patient also mentions a recent diagnosis of invasive lobular cancer in the same breast where a tumor was previously identified. She is scheduled for an MRI to determine the extent of the cancer and whether it has spread to the other breast. This new diagnosis has caused a resurgence of her anxiety and may change her treatment plan, which was initially a lumpectomy. ALEX PACHECO DO [address] [place], [phone], [facility] 02/12/2024 13:12:16 OBGyn Episode No OBEpisode recorded.
[2024-04-10 08:18] LABS: Anion Gap 14 (12-20); Blood Urea Nitrogen 13 mg/dL (9-16); Calcium 9.6 mg/dL (8.4-10.2); Carbon Dioxide 24 mmol/L (22-29); Chloride 108 mmol/L (96-108); Creatinine Clr Calc Pharmacy 104.5; Estimated Glomerular Filt Rate > 60; Glucose Random 99 mg/dL (60-115); Sodium 142 mmol/L (135-145)
[2024-04-10 10:21] VITALS: BP 167/76
[2024-04-10 10:56] VITALS: BP 167/76; PULSE 87; RESP 16; TEMP 36.7
== END 2024-04-10 10:57 | disposition home or self-care (01) ==
PROVIDERS: Emergency Provider Emergency Medicine; PCP Internal Medicine Nephrology
DX: I80.01 Phlebitis and thrombophlebitis of superficial vessels of right lower extremity (principal); R60.0 Localized edema; Z79.899 Other long term (current) drug therapy
CPT/HCPCS: 36415; 80048; 85025; 93971; 99284

== ENCOUNTER → 2024-04-10 07:45 | Outpatient (BNV) | payer OTHER, SELFPAY | PROVIDERS: Emergency Provider Emergency Medicine; PCP Internal Medicine Nephrology; Visit Provider Radiology Diagnostic Radiology | DX: M79.604 Pain in right leg (principal); R22.41 Localized swelling, mass and lump, right lower limb | CPT/HCPCS: 93971 ==

== ENCOUNTER 2024-04-16 12:42 | Outpatient (AMB) | payer OTHER, SELFPAY ==
--- NOTE | 2024-04-16 12:55 | MHC.OFFVIS ---
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 Hx of DVT and PE in 2006, unprovoked. Pt states starting to feel better. 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 She was diagnosed with super thrombophlebitis and placed on Eliquis and is following up with us today. She does have a remote history of a PE from 2006 and did complete 6 months of Coumadin; it was an unprovoked PE. There is no patient and/or family history of any clotting disorders and she has been worked up completely by heme. She is recently status post bilateral mastectomy on 03/25/2024. She is being followed by Oncology and has a follow up appointment tomorrow. She is unsure at this point if she will need chemo or radiation. The patient states the site is feeling a little bit better and is less red. Complaints include pain over varicosities, cramping, fatigue, and heaviness of the lower extremities. It has been affecting their daily activities including walking, standing physical activity. It is noted more so in the right leg. Patient denies any previous venous surgery or injections. Patient has a history of an unprovoked PE in 2006 and was treated with Coumadin for 6 months. Patient currently has superficial thrombophlebitis in the right lower extremity. Trial of compression includes - elevation with some relief They now present for vascular evaluation regarding their varicose veins. [facility] Medical History Pulmonary embolus Varicose vein of leg Breast cancer Social History Patient Tobacco Use Status: Never used Tobacco Review of Systems Const Reports as per HPI and Denies weakness ENT Reports Normal hearing present and Denies dizziness Card Reports as per HPI, Denies chest pain, Denies chest pain at rest, Denies chest pain with activity, Denies dyspnea and Denies dyspnea on exertion Resp Reports as per HPI, Denies cough, Denies dyspnea and Denies dyspnea on exertion GI Reports as per HPI, Denies abdominal pain, Denies nausea and Denies vomiting Musc Denies numbness Skin/Breast Reports as per HPI, Denies erythema and Denies wounds Neuro Reports Normal hearing present, Denies dizziness, Denies numbness, Denies Sensory deficit (Neuro) and Denies weakness Psych Reports no additional complaints Endo Reports no additional complaints Physical Exam Vital Signs: BMI result Body Mass Index 34.7 Const General: healthy appearing and no acute distress Orientation/consciousness: patient oriented x3 HEENT Head: Yes normal to inspection Ears: hearing grossly normal bilaterally Mouth: Normal oral and palatal mucosa present Resp Effort & Inspection: normal respiratory effort and able to speak in complete sentences Auscultation: clear to auscultation bilaterally Cardio Jugular venous distension: no JVD Rate: regular rate Rhythm: regular rhythm Heart sounds: S1 normal heart sound present and S2 normal heart sound present Bruits: no abdominal aortic bruits, no carotid bruits, no femoral bruits and no renal bruits Peripheral pulses: Peripheral pulses 2+ throughout GI Inspection: Yes normal to inspection Palpation (GI): No Abdominal aortic bruit present Skin General skin exam: no rashes or lesions noted Wounds: no wounds Hair: normal Neuro General: patient oriented x3 Cranial nerves: Yes Normal hearing present Cognition (Neuro): normal cognition Gait exam (Neuro): Normal gait present Motor exam (neuro): 5/5 motor strength present throughout Sensory Exam: No Sensory deficit (Neuro) Extrem Other: Right lower extremity: Large rope-like tortuosity noted from the medial thigh posteriorly to the medial aspect of the calf. Total length approximately >15cm. Bruising noted over the entire varicosity. Slightly tender to palpation. No increased warmth felt. Multiple spider veins noted all throughout the rest of her legs, particularly at her ankle and foot. Palpable DP pulses Left lower extremity: Multiple spider veins noted throughout her legs, particularly at the ankle and her foot. Palpable DP pulses CEAP: C - 4 E - primary A - superficial P - reflux General: Yes normal to inspection, Yes full ROM, Yes capillary refill normal and Yes normal gait Assessment & Plan Assessment & Plan (1) Varicose veins of both lower extremities with inflammation: Code(s): I83.11 - Varicose veins of right lower extremity with inflammation; I83.12 - Varicose veins of left lower extremity with inflammation Category: Medical Plan: Alexia is presenting today as a follow up to ER visit on 02/07/2025, when she was diagnosed with a superficial thrombophlebitis of the right lower extremity. Due to a history of PE, she was placed on Eliquis b.i.d.. She was negative for PE as well as DVT in the ER. She states she continues the thrombophlebitis despite the Eliquis, warm compresses, and elevation. We discussed to continue with the warm compresses. She is unable to take NSAIDs at this time due to being on Eliquis. She has been taking Tylenol very infrequently for the pain associated with the varicose veins. Due to the extensive amount of varicose veins and spider veins the patient has evidence of venous insufficiency. I have discussed the pathophysiology with the patient. In addition I have provided informational material regarding venous disease to the patient. We have discussed conservative measures including compression, elevation, and exercise. I have taken the liberty of ordering venous insufficiency testing with the patient. They will follow up with me after testing. The patient had an opportunity to ask questions regarding the treatment plan. All questions were answered. Imaging studies, laboratory studies and physical exam results were discussed and reviewed in detail. No major barriers to understanding were identified. The patient expressed understanding and agreement with the above treatment plan. The patient is aware they should contact our office by phone for worsening of the current condition or the appearance of new symptoms. Thank you for allowing me to participate in the vascular care of this patient. If you have any questions or concerns regarding the treatment for the above condition please do not hesitate to contact me. The office telephone contact is [phone]. This note is constructed using voice recognition software. While every effort has been made to ensure accuracy, benefits consulting analyst errors may have been included. Thank you for allowing me to participate in the care of your patient. Yours sincerely, MARIAN Lazo Orders: Orders US venous duplex LE BI 1 Week I83.11 - Varicose veins of right lower extremity with inflammation, I83.12 - Varicose veins of left lower extremity with inflammation Coding Level of Care Code New Pt Level 4 (13530) Diagnoses Varicose veins of both lower extremities with inflammation I83.11; I83.12
[2024-04-16 12:58] VITALS: BMI 34.7
--- OUTSIDE RECORDS SUMMARY | 2024-04-16 13:37 | XMS_ITS | Data Portability ---
Author Organization [facility], , [facility], OFFICE Address [address] [place] [address] Care Team Providers Care Registered Dietetic Technician Name Role Phone ALEX PACHECO Primary Care Provider [phone] Assessment Encounter Date Assessment Date Assessment LastModified by Organization Details LastModified Time 08/17/2022 08/17/2022 Visit 3 of 10 Re-eval Due: Next visit : Short Term Goals: In 4 weeks, patient will: 1. Perform left shoulder abduction without pain. 2. Perform left sidelying without shoulder pain. Loop Tacker Goals: In 8 weeks, patient will: 1. [...] Plan : discharge from PT. Access Code: [email or web address] URL: [email or web address] Date: 08/10/2022 Prepared by: Cindy De La Fuente Exercises - Seated Shoulder Inferior Vivian - 3 x daily - 7 x [...] Invasive ductal carcinoma, grade 1. A. Histologic [place] score (tubule formation score: 2; nuclear pleomorphism [...] was transferred to the Specialists at the [facility]. An appointment was made for consultation with [...] and I agree with this report. WSN: [id number] Ordering Physician: Raysa Noriega Dictated By: Dorinda Ann NP Dictated Date/Time: 12/20/23 2:32 pm Reviewed By: Rox Mosquera MD Signed By: Rox Mosquera MD Signed Date/Time: 12/20/23 2:37 pm Transcribed By: ALIYA Pot Sander Date/Time: 12/20/23 1:33 pm Birads: Assessment & Plan Breast Cancer Recently diagnosed, awaiting further details on marker testing and treatment plan. Lymph node biopsy scheduled for next week. -Coordinate care with oncology team at [facility]. -Review results from [facility] once received. Hypertriglyceridemia Slightly elevated triglycerides noted on previous labs. -Encourage continued healthy diet and lifestyle. -Consider repeating lipid panel at next visit. Follow-up in 3 months to ensure continuity of care and address any new concerns. [email or web address] Not available 12/26/2023 08:13:22 Plan of Treatment Reminders Order Date Submit Date Provider Last Modified By Organization Details Last Modified Time Details Appointments Medical Manageme nt 15 2024 08:00A M ALEX PACHECO, DO Not available Not available Not available [facility] 2024 11:00A M Briana Macedo, Retail Associate Not available Not available Not available Lab CMP, serum or plasma 2023 024 [facility], [address] [place] [address], [id number], 03/25/2024 16:12:40 TSH, serum or plasma 2023 [facility], [address] [place] [address], [id number], 03/25/2024 16:12:41 HbA1c (hemoglo bin A1c), blood 2023 [facility], [address] [place] [address], [id number], 03/25/2024 16:12:41 lipid panel, serum 2023 [facility], [address] [place] [address], [id number], 03/25/2024 16:12:40 Referral behavior al health referral - Recent diagnosi s of breast cancer. Patient struggli ng emotiona lly and agreeabl e to therapy referral to help cope with new diagnosi s and continue working. 2023 [email or web address] [facility] [address] [place] [address], [id number], 12/26/2023 08:57:20 Procedures None recorded . Surgeries None recorded . Imaging None recorded . Medication Orders doxazosi n 2 mg tablet 2023 [facility], [address] [place], [address], 02/12/2024 09:11:55 citalopr am 10 mg tablet 2023 [facility], [address] [place], [address], 02/12/2024 09:13:08 diltiaze m CD 120 mg capsule, extended release 24 hr 2023 [facility], [address] [place], [address], 01/17/2024 15:20:11 sertrali ne 25 mg tablet 2023 024 [facility], [address] [place], [address], 12/24/2023 08:49:13 Patient TargetsNo targets recorded. Patient [...] Abnormal Flag Note LastModifiedBy Organization Detail LastModifiedTime 11/29/19 24 11/06/2023 MAMMO , scree princess No observ ation [facility] [place] [address] [facility] [address] [place], [address], 01/03/2024 14:22:55 11/29/19 24 11/20/2023 MAMMO , diagn ostic , unila teral No observ ation [facility] [place] [address] [facility] [address] [place], [address], 01/03/2024 14:22:55 11/29/19 24 11/20/2023 , mehul monet, unila teral No observ ation [facility] [place] [address] [facility] [address] [place], [address], 01/03/2024 14:22:55 01/07/20 24 01/07/2024 mehul MARIE bilat eral, limit ed No observ ation [facility] [address] [place] [address], [address], 01/09/2024 11:56:49 01/08/20 24 01/08/2024 US, breas t, bilat eral, limit ed No observ ation record ed. [email or web address] [facility] [address] [place], [address], 01/09/2024 11:56:49 Result Notes None recorded. Procedures Surgical History Date Name Laterality Status Provider Name and Address Organization Details Recorded Time Donell - Colonoscopy completed Nate Marley MD [address] [place] [address], [id number], [facility] 07/19/2022 09:00:56 Imaging Results Imaging Date Name Status LastModified by Organiz ation Details LastModified Time 11/06/2023 MAMMO, screening completed [email or web address] [place] [address] [facility] [address] [place], [address], 01/03/2024 14:22:55 11/20/2023 MAMMO, diagnostic, unilateral completed [address] [place] [address] [facility] [address], [address], 01/03/2024 14:22:55 11/20/2023 US, breast, unilateral completed [email or web address] [facility] [address] [place], [address], 01/03/2024 14:22:55 01/07/2024 US, breast, bilateral, limited [facility] [address] [place], [address], 01/09/2024 11:56:49 01/08/2024 US, breast, bilateral, limited [facility] [address] [place], [address], 01/09/2024 11:56:49 Procedure Notes None recorded. Medical Equipment None Reported. Allergies Allergen ID Allergen Name Allergen Category Reaction Reaction Severity Criticality Documentation Date Start Date Code Code System Note Provider Name and Address Organization Details Recorded Time 809750 Compazine medicatio n other Not available Not available 07/16/2022 6 RxNorm facia l sp[facility] 16:35:04 Medications Name Sig Start Date Stop Date [...] Relief 50 mcg/actua tion nasal spray,juan pension [place]oma 1 spray every day by intranas al route. active Not Available Not Available No t Available Eliquis DVT-PE Treatment 30-Day Starter 5 mg (74 tablets) in dose pack TAKE 5MG BY MOUTH TWO TIMES A DAY; INITIAL DOSE IS 10MG TWO TIMES A DAY FOR 1 WEEK FOLLOWED BY 5MG TWO TIMES A DAY active Not Available Not Available No t Available BinaxNOW COVID-19 Ag Self Test kit Use as Directed on the Package 06/05 completed Not Available Not Available Not Available Vitals None Recorded Social History Question Answer Notes LastModified by Organizat ion Details LastModified Time What Is Your Level Of Alcohol Consumption? [...] Illicit Or Recreational Drugs Have You Used? 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 With Others With DaughterGianna Information not available 12/27/2014 Patient Has Health [...] 09:15:40 Notes:no breast CA, colon CA , [place] Medical History Condition Response Allergic Rhinitis Y Obesity Y INFECTIOUS DISEASE Y RESPIRATORY Y Irritable Bowel Syndrome Y Sleep Apnea Y GERD Y Gynecological History Statement/Question Response History of Abnormal Pap N Date of LMP Obstetrics History GPAL:G 0 P 0 0 0 0 Past Encounters Encounter ID Performer Location Encounter Start Date Encounter Closed Date Diagnosis/Indication Diagnosis SNOMED-CT Code Diagnosis ICD10 Code Diagnosis Note [id number] LAB - [facility] [address] [place] [address] 04/01/2008 14:33:54 04/01/2008 14:34:20 [id number] , [facility], OFFICE [address] [facility] [place] [address] 04/14/2010 08:55:51 04/20/2010 10:17:59 [id number] , [facility], OFFICE [address] [facility] [place] [address] 05/12/2010 09:16:37 05/17/2010 12:24:48 [id number] Radiology , [facility] [address] [facility] [place] [address] 05/18/2010 09:57:10 05/19/2010 11:41:09 [id number] , [facility], OFFICE [address] [facility] [place] [address] 10/23/2010 11:54:33 10/23/2010 12:53:26 [id number] [facility], OFFICE [address] [place] [address] 03/10/2011 13:36:24 03/10/2011 14:14:02 [id number] Radiology , [facility] [address] [place] [address] 03/12/2011 14:52:59 03/14/2011 15:02:14 [id number] , [facility], OFFICE [address] [facility] [place] [address] 03/20/2011 13:38:36 03/20/2011 14:05:55 [id number] , [facility], OFFICE [address] [facility] [place] [address] 06/14/2011 09:33:05 06/14/2011 10:14:58 [id number] Radiology , [facility] [address] [facility] [place] [address] 07/20/2011 13:00:46 07/24/2011 09:48:19 [id number] , [facility], OFFICE [address] [facility] [place] [address] 09/26/2011 11:28:11 09/26/2011 12:40:43 [id number] Ana Luisa Malave RN , [facility], OFFICE [address] [place] [address] 12/06/2011 10:47:45 12/06/2011 11:58:38 [id number] Ana Luisa Malave RN FP, [facility], OFFICE [address] [place] [address] 02/28/2012 08:57:43 02/28/2012 09:14:48 [id number] Ana Luisa Malave RN FP, [facility], OFFICE [address] [facility] [place] [address] 03/25/2012 08:02:36 03/25/2012 08:24:21 [id number] Ana Luisa Malave RN FP, [facility], OFFICE [address] [facility] [place] [address] 06/03/2012 13:59:36 06/03/2012 15:06:19 [id number] NEIDA Delaney, [facility], OFFICE [address] [facility] [place] [address] 08/19/2012 11:16:44 08/19/2012 11:47:59 [id number] NEIDA Delaney, [facility], OFFICE [address] [facility] [place] [address] 11/07/2012 09:27:18 11/07/2012 10:43:44 [id number] HAN, [facility], OFFICE [address] [facility] [place] [address] 05/12/2013 11:59:40 05/12/2013 13:00:26 [id number] Elin SHORT, [facility], OFFICE [address] [facility] [place] [address] 05/20/2013 09:37:22 05/20/2013 10:14:04 [id number] Elin SHORT, [facility], OFFICE [address] [facility] [place] [address] 05/26/2013 10:03:23 05/26/2013 10:56:26 [id number] RACHELLE Shaw, [facility], OFFICE [address] [facility] [place] [address] 07/22/2013 10:28:16 07/22/2013 11:16:35 [id number] MD HAN Hoffman, [facility], OFFICE [address] [facility] [place] [address] 08/24/2013 13:25:42 08/24/2013 13:59:50 [id number] , [facility], OFFICE [address] [facility] [place] [address] 11/11/2013 08:53:04 11/11/2013 09:43:45 [id number] Lesvia Fernando LPN , [facility], OFFICE [address] [facility] [place] [address] 12/09/2013 11:34:59 12/09/2013 11:58:53 [id number] Kalani Cooley , [facility], OFFICE [address] [facility] [place] [address] 05/27/2014 13:28:00 05/27/2014 14:06:15 [id number] Lamont Monet MD , [facility], OFFICE [address] [facility] [place] [address] 06/09/2014 12:51:30 06/09/2014 13:28:34 [id number] Yoko Loya , [facility], OFFICE [address] [facility] [place] [address] 08/17/2014 08:27:08 08/17/2014 09:02:03 [id number] iMckie Guadarrama , [facility], OFFICE [address] [place] [address] 12/16/2014 12:02:49 12/23/2014 14:38:12 [id number] Lamont Monet MD , [facility], OFFICE [address] [facility] [place] [address] 12/27/2014 11:14:13 12/27/2014 12:20:53 [id number] Rubens Hopkins MD , [facility], OFFICE [address] [facility] [place] [address] 01/11/2015 07:39:12 01/11/2015 08:23:17 [id number] Art Meyer MD , [facility], OFFICE [address] [place] [address] 01/29/2015 10:00:00 01/29/2015 10:51:45 [id number] Nate Benítez MD , [facility], OFFICE [address] [facility] [place] [address] 03/28/2015 10:23:15 03/28/2015 11:50:28 [id number] Daniela Arthur , [facility], OFFICE [address] [facility] [place] [address] 08/22/2016 13:08:59 08/22/2016 13:30:56 [id number] Yaritza Casper NP , [facility], OFFICE [address] [facility] [place] [address] 01/10/2017 08:55:17 01/10/2017 09:34:05 [id number] Kalani Cooley , [facility], OFFICE [address] [facility] [place] [address] 01/22/2018 08:46:28 01/22/2018 09:21:15 [id number] MD HAN Moe, [facility], OFFICE [address] [facility] [place] [address] 02/14/2018 08:34:41 02/14/2018 09:29:36 [id number] MD HAN Moe, [facility], OFFICE [address] [facility] [place] [address] 06/09/2018 11:29:22 06/09/2018 14:10:57 [id number] Kalani SHORT, [facility], OFFICE [address] [facility] [place] [address] 07/16/2018 10:25:27 07/16/2018 11:02:35 [id number] MD HAN Maguire, [facility], OFFICE [address] [facility] [place] [address] 08/19/2018 09:58:26 08/19/2018 11:22:35 [id number] Kalani SHORT, [facility], OFFICE [address] [facility] [place] [address] 12/10/2018 12:10:27 12/10/2018 14:26:12 [id number] MD HAN Maguire, [facility], OFFICE [address] [facility] [place] [address] 01/15/2019 09:24:18 01/15/2019 10:22:56 [id number] Nate Benítez MD , [facility], OFFICE [address] [place] [address], [place] [address] 02/05/2019 10:52:00 02/05/2019 11:31:40 [id number] Kalani Cooley , [facility], OFFICE [address] [place] [address], [place] [address] 03/04/2019 10:50:29 03/05/2019 11:43:52 [id number] Yaritza Casper NP , [facility], OFFICE [address] [place] [address], [place] [address] 06/03/2020 09:11:21 06/08/2020 13:50:18 [id number] Meaghan Day NP , [facility], [address]ICE [address] [place] [address] 06/05/2022 17:01:20 06/05/2022 17:32:33 [id number] JOSI Mckeon, [facility], OFFICE [address] [place] [address] 06/26/2022 10:06:57 06/26/2022 16:56:04 [id number] Adry Antonio RN Endoscopy , [address] [address] 07/19/2022 07:51:18 07/19/2022 13:06:42 [id number] Cindy Delvalle, PT Physical Therapy, [address] [place] [address] 07/27/2022 07:19:58 07/30/2022 08:18:29 [id number] Cindy Delvalle, PT Physical Therapy, [address] [place] [address] 08/03/2022 07:28:39 08/03/2022 10:10:58 [id number] Cinyd Delvalle, PT Physical Therapy, [address] [place] [address] 08/10/2022 07:29:32 08/10/2022 08:53:39 [id number] Cindy Delvalle, PT Physical Therapy, [facility] [address] [place] [address] 08/17/2022 07:57:53 08/17/2022 09:16:19 [id number] JOSI Mckeon, [facility], OFFICE [address] [place] [address] 08/29/2022 07:54:13 08/29/2022 12:19:36 [id number] ALEX PACHECO DO , [facility], OFFICE [address] [place] [address] 12/24/2023 08:07:23 12/28/2023 12:14:38 [id number] Sameera Mcmahan MD , [facility], [address]ICE [address] [place] [address] 01/17/2024 14:50:23 01/17/2024 15:20:20 [id number] DO HAN RODRIGUEZ, [facility], [address]ICE [address] [place] [address] 02/12/2024 08:51:43 02/13/2024 18:07:44 Health Concerns Section Related Observation LastModified by Organization Detai ls LastModified Time None Recorded Concern Status LastModified by Organization Details LastModified Time None Recorded Advance Directives Directive None Recorded Payers Encounter Date Sequence Insurance Name Policy Number Policy Sunshine Covered Member ID Sunshine Member ID Guarantor Name 08/17/2022 1 [facility] Alexia Ellington [id number] Alexia Ellington 08/29/2022 1 [facility] Alexia Ellington [id number] Alexia Ellington 12/24/2023 1 [facility] Alexia Ellington [id number] Alexia Ellington 01/17/2024 1 [facility]) Alexia Ellington [id number] Alexia Ellington 02/12/2024 1 [facility]) Alexia Ellington [id number] Alexia Ellington OBGyn Episode No OBEpisode recorded.
--- OUTSIDE RECORDS SUMMARY | 2024-04-16 13:37 | XMS_ITS | Data Portability ---
Author Organization [facility], , [facility] Address [address] [place] [address] Care Team Providers Care Holistic Nutritionist Name Role Phone ALEX PACHECO Primary Care Provider [phone] Assessment Encounter Date Assessment Date Assessment LastModified by Organization Details LastModified Time 08/17/2022 08/17/2022 Visit 3 of 10 Re-eval Due: Next visit : Short Term Goals: In 4 weeks, patient will: 1. Perform left shoulder abduction without pain. 2. Perform left sidelying without shoulder pain. Chief Engineering Division Goals: In 8 weeks, patient will: 1. [...] Plan : discharge from PT. Access Code: [email or web address] URL: [email or web address] Date: 08/10/2022 Prepared by: Cindy De La Fuente Exercises - Seated Shoulder Inferior [place] - 3 x daily - 7 x [...] Invasive ductal carcinoma, grade 1. A. Histologic Sedgwick score (tubule formation score: 2; nuclear pleomorphism [...] was transferred to the Specialists at the [facility]. An appointment was [...] and I agree with this report. WSN: [id number] Ordering Physician: Raysa Noriega Dictated By: Dorinda Ann NP Dictated Date/Time: 12/20/23 2:32 pm Reviewed By: Rox Mosquera MD Signed By: Rox Mosquera MD Signed Date/Time: 12/20/23 2:37 pm Transcribed By: ALIYA Senior Information Security Analyst Date/Time: 12/20/23 1:33 pm Birads: Assessment & Plan Breast Cancer Recently diagnosed, awaiting further details on marker testing and treatment plan. Lymph node biopsy scheduled for next week. -Coordinate care with oncology team at [facility]. -Review results from [facility] once received. 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 Not available Not available Not available Lab CMP, serum or plasma 2023 024 [facility], [address] [place] [address], [address], 03/25/2024 16:12:40 TSH, serum or plasma 2023 [facility], [address] [place] [address], [address], 03/25/2024 16:12:41 HbA1c (hemoglo bin A1c), blood 2023 [facility], [address] [place] [address], [address], 03/25/2024 16:12:41 lipid panel, serum 2023 [facility], [address] [place] [address], [address], 03/25/2024 16:12:40 Referral behavior al health referral - Recent diagnosi s of breast cancer. Patient struggli ng emotiona lly and agreeabl e to therapy referral to help cope with new diagnosi s and continue working. 2023 [email or web address] [facility] [address] [place] [address], [address], 12/26/2023 08:57:20 Procedures None recorded . Surgeries None recorded . Imaging None recorded . Medication Orders doxazosi n 2 mg tablet 2023 [facility], [address] [place], [address], 02/12/2024 09:11:55 citalopr am 10 mg tablet 2023 [facility], [address] [place], [address], 02/12/2024 09:13:08 diltiaze m CD 120 mg capsule, extended release 24 hr 2023 [facility], [address] [place], [address], 01/17/2024 15:20:11 sertrali ne 25 mg tablet 2023 024 [facility], [address] [place], [address], 12/24/2023 08:49:13 Patient TargetsNo targets recorded. Patient [...] scree princess No observ ation record ed. [address] [facility] [address] [place], [address], 01/03/2024 14:22:55 11/29/19 24 11/20/2023 MAMMO , diagn ostic , unila teral No observ ation record ed. [facility] [place] [address] [facility] [address] [place], [address], 01/03/2024 14:22:55 11/29/19 24 11/20/2023 US, mehul t, unila teral No observ ation record ed. [facility] [place] [address] [facility] [address] [place], [address], 01/03/2024 14:22:55 01/07/20 24 01/07/2024 mehul MARIE, bilat eral, limit ed No observ ation record ed. [facility] [place] [address] [facility] [address] [place] [address], [address], 01/09/2024 11:56:49 01/08/20 24 01/08/2024 mehul MARIE bilat eral, limit ed No observ ation record ed. [email or web address] [facility] [address], [place], [address], 01/09/2024 11:56:49 Result Notes None recorded. Problems Name Problem SNOMED Code Status Onset Date Resolution Date Notes Provider Name and Address Organization Details Recorded Time Sleep apnea 28311410 Active Zehra Mckinnon MD [address] [place], [place] [address] [place], [address], [facility] 6 11:27:34 Herpes simplex 36627801 Active 2017 Yaritza Casper NP [address] [place], [place] [address] [place], [address], [facility] 8 09:00:33 Asthma 632391970 Active 2018 Yaritza Casper NP [address] [place], [place] [address] [place], [address], [facility] 9 10:51:56 Hyperten sive disorder 20840877 Active 2018 Yaritza Casper NP [address] [place], [place] [address] [place], [address], [facility] 9 11:06:11 Obesity 947285630 Completed 201311/30/2021 ISABELLE Orr, [facility] 2 12:08:08 Morbid obesity 366095201 Active 2021 BMI > or = 35 plus diagnosis of HTN. 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 Active Zehra Mckinnon MD [address] [place], [place] [address] [place], [address], [facility] 6 11:27:34 Dysuria 04252703 Completed 04/01/2011 Zehra Mckinnon MD [address] [place], [place] [address] [place], [address], [facility] 6 11:27:34 Acute upper respirat ory infectio n 44002242 Completed 04/01/2011 Zehra Mckinnon MD [address] [place] [address] [place], [address], [facility] 6 11:27:34 Influenz a 4023240 Completed 04/01/2011 Zehra Mckinnon MD [address] [place], [place] [address] [place], [address], [facility] 6 11:27:34 Abdomina l pain 65400541 Completed 200804/01/2011 Zehra Mckinnon MD [address] [place], [place] [address] [place], [address], [facility] 6 11:27:34 Urinary tract infectio us disease 89053413 Completed 04/01/2011 Zehra Mckinnon MD [address] [place], [place] [address] [place], [address], [facility] 11:27:34 Problem Notes None recorded. Procedures Surgical History Date Name Laterality Status Provider Name and Address Organization Details Recorded Time 08/18/19 29392: Therapeutic Exercise completed Cindy Delvalle, PT [address] [place] [address], [address], [facility] 08/17/2022 08:03:33 08/18/19 12326: Manual Therapy completed Cindy Delvalle, PT [address] [place] [address] [place], [address], [facility] 08/17/2022 08:03:33 08/11/19 66794: Therapeutic Exercise completed Cindy Delvalle, PT [address] [place] [address], [address], [facility] 08/10/2022 07:33:11 08/11/19 23 32342: Manual Therapy completed Cindy Delvalle, PT [address] [place], [address], [facility] 08/10/2022 08:46:40 08/04/19 64686: Therapeutic Exercise completed Cindy Delvalle, PT [address] [place], [address], [facility] 08/03/2022 08:48:13 08/04/19 23 79699: Manual Therapy completed Cindy Delvalle, PT [address] [place], [address], [facility] 08/03/2022 08:48:15 07/28/19 Smoking Cessation Counselling completed Cindy Delvalle, PT [address] [place], [address], [facility] 07/27/2022 07:19:57 07/28/19 Physical Activity Counselling completed Cindy Delvalle, PT [address] [place], [address], [facility] 07/27/2022 07:19:57 07/28/19 40488: PT Eval Low Complexity completed Cindy Delvalle, PT [address] [place], [address], [facility] 07/27/2022 07:19:57 07/28/19 Treatment and Advice completed Cindy Delvalle, PT [address] [place], [address], [facility] 07/28/2022 08:28:13 06/27/19 23 Asthma Control Test (12 + years old) completed RACHELLE Laws [facility] 06/26/2022 10:15:51 02/06/20 19 Asthma Control Test (12 + years old) completed Yajaira Arrington CMA [facility] 02/05/2019 08:25:52 01/16/20 19 POC Urinalysis Testing completed Jackie James [facility] 01/15/2019 09:42:14 12/11/19 19 POC Urinalysis Testing completed Lesvia Fernando LPN [facility] 12/10/2018 12:20:33 08/20/19 19 POC hCG Testing completed Ruthie Infante [facility] 08/19/2018 10:07:28 08/20/19 19 IUD Insertion completed Rubens Hopkins MD [address] [place] [address], [address], [facility] 08/22/2018 04:43:25 08/20/19 19 IUD Removal completed Ruthie Infante [facility] 08/19/2018 10:07:26 02/15/20 18 Asthma Control Test (12 + years old) completed Sonu Ibarra [facility] 02/14/2018 08:47:22 11/12/19 14 IUD Insertion completed Lamont Monet MD [address] [place] [address], [address], [facility] 11/12/2013 09:53:02 03/28/19 12 Cholecystectomy completed Lamont Monet MD [address] [place] [address], [address], [facility] 04/01/2011 15:01:33 completed Not Available [facility] 01/11/2011 06:06:16 Imaging Results Imaging Date Name Status LastModified by Organiz ation Details LastModified Time 11/06/2023 MAMMO, screening completed [email or web address] [facility] [address] [place], [address], 01/03/2024 14:22:55 11/20/2023 MAMMO, diagnostic, unilateral completed [email or web address] [facility] [address] [place], [address], 01/03/2024 14:22:55 11/20/2023 US, breast, unilateral completed [email or web address] [facility] [address] [place], [address], 01/03/2024 14:22:55 01/07/2024 US, breast, bilateral, limited completed [email or web address] [facility] [address] [place] [address] [place], [address], 01/09/2024 11:56:49 01/08/2024 US, breast, bilateral, limited completed [email or web address] [facility] [address] [place], [address], 01/09/2024 11:56:49 Procedure Notes None recorded. Medical Equipment None Reported. Allergies Allergen ID Allergen Name Allergen Category Reaction Reaction Severity Criticality Documentation Date Start Date Code Code System Note Provider Name and Address Organization Details Recorded Time 710448 lisinopri l medicatio n rash Not available Not available 12/27/2014 25020 RxNorm Lamont Monet MD [address] [place] [address] [place], [address], [facility] 5 12:32:49 612884 amlodipin e medicatio n edema moderate Not available 03/04/2019 02223 RxNorm with shoot ing pain Nelly Waddell PA-C [address] [place] [address] [place], [address], [facility] 0 11:29:10 515627 hydrochlo rothiazid e medicatio n edema Not available Not available 06/03/2020 5487 RxNorm foot pain Yaritza Casper NP [address] [place] [address] [place], [address], [facility] 1 09:41:38 47005 Compazine medicatio n other mild Not available 04/14/201026717 6 RxNorm neck spasm s Not Available [facility] 06:05:41 03263 Substance with sulfonami de structure and antibacte rial mechanism of action (substanc e) medicatio n rash Not available Not available 04/14/2010 93369 8003 SNOMED Not Available [facility] 06:05:41 Medications Name Sig Start Date Stop [...] Relief 50 mcg/actua tion nasal spray,juan pension [place] 1 spray every day by intranas al [...] /min 98 % 98 % 33.6 kg/m2 97335.8 1 g 132 mm[Hg] 78 mm[Hg] Cathie Sanches Antonio [facility] 3 08:02:30 Date Recorded Body height Body mass index (BMI) Body weight Oxygen saturation Oxygen saturation in Arterial blood by Pulse oximetry Heart rate Systolic blood pressure Diastolic blood pressure Provider Name and Address Organization Details Last Updated DateTime 4 156.85 cm 33.6 kg/m2 87221.8 1 g 98 % 98 % 77 /min 130 mm[Hg] 78 mm[Hg] Anastasiyaroshan Guardado [facility] 4 08:15:42 Date Recorded Body height Body mass index (BMI) Body weight Heart rate Systolic blood pressure Diastolic blood pressure Provider Name and Address Organization Details Last Updated DateTime 4 156.85 cm 36.8 kg/m2 28223.9 8 g 76 /min 160 mm[Hg] 90 mm[Hg] Marcela Cookuse [facility] 4 15:00:37 Date Recorded Body height Body mass index (BMI) Body weight Oxygen saturation Oxygen saturation in Arterial blood by Pulse oximetry Heart rate Systolic blood pressure Diastolic blood pressure Provider Name and Address Organization Details Last Updated DateTime 4 156.85 cm 36.7 kg/m2 73947.8 8 g 98 % 98 % 83 /min 154 mm[Hg] 90 mm[Hg] Anastasiya Bhupinderoh [facility] 4 08:59:16 Date Recorded Systolic blood pressure Diastolic blood pressure Provider Name and Address Organization Details Last Updated DateTime 10/04/2023 130 mm[Hg] 78 mm[Hg] Forrest Thomas [facility] 10/04/2023 11:09:33 Social History Question Answer Notes LastModified by Organizat ion Details LastModified Time Tobacco Smoking Status Former Smoker quit age 17yo Lamont Monet MD [address] [place] [address], [address], [facility] 04/14/2010 09:31:01 What Is Your Level Of [...] Illicit Or Recreational Drugs Have You Used? 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 [employer] Information not available 12/27/2014 Have There [...] 09:15:40 Notes:no breast CA, colon CA , [place] Medical History Condition Response Allergic Rhinitis Y [...] virus, trivalent, preservative 2 completed Not Available [facility] 03/14/2019 02:27:39 Tdap 2 completed Not Available [facility] 03/14/2019 02:25:09 Influenza, split virus, quadrivalent, PF 9 completed Not Available [facility] 03/14/2019 02:27:07 COVID-19, mRNA, LNP-S, PF, 100 mcg/0.5mL dose or 50 mcg/0.25mL dose 1 completed Yaritza Casper, HEMATOLOGIST ONCOLOGIST [address] [place], [address], [facility] 06/03/2020 09:38:43 Td (adult), 5 Lf tetanus toxoid, preservative free, adsorbed 3 completed Cathie Sanches [facility] ting, [facility] 06/26/2022 11:13:12 Influenza, split virus, quadrivalent, preservative 2 completed Rianna Snell [place] ting, [facility] 12/04/2021 08:57:30 Past Encounters Encounter ID Performer Location Encounter Start Date Encounter Closed Date Diagnosis/Indication Diagnosis SNOMED-CT Code Diagnosis ICD10 Code Diagnosis Note [id number] LAB - [facility] [address] 04/01/2008 14:33:54 04/01/2008 14:34:20 [id number] [facility], OFFICE [address] [place] [address] 04/14/2010 08:55:51 04/20/2010 10:17:59 [id number] [facility], OFFICE [address] [place] [address] 05/12/2010 09:16:37 05/17/2010 12:24:48 [id number] [facility] , [address] [address] 05/18/2010 09:57:10 05/19/2010 11:41:09 [id number] [facility], OFFICE [address] [place] [address] 10/23/2010 11:54:33 10/23/2010 12:53:26 [id number] , [facility], OFFICE [address] [place] [address] 03/10/2011 13:36:24 03/10/2011 14:14:02 [id number] [facility] , [facility] [address] [place] [address] 03/12/2011 14:52:59 03/14/2011 15:02:14 [id number] , [facility], OFFICE [address] [place] [address] 03/20/2011 13:38:36 03/20/2011 14:05:55 [id number] , [facility], OFFICE [address] [place] [facility] [place] [address] 06/14/2011 09:33:05 06/14/2011 10:14:58 [id number] [facility] , C [address] [place] [place] [facility] [address] 07/20/2011 13:00:46 07/24/2011 09:48:19 [id number] , [facility], OFFICE [address] [place] [facility] [place] [address] 09/26/2011 11:28:11 09/26/2011 12:40:43 [id number] Ana Luisa Malave RN , [facility], OFF[address] [place] [facility] [place] [address] 12/06/2011 10:47:45 12/06/2011 11:58:38 [id number] Ana Luisa Malave RN , [facility], OFF[address] [place] [facility] [place] [address] 02/28/2012 08:57:43 02/28/2012 09:14:48 [id number] Ana Luisa Malave RN , [facility], OFF[address] [place] [facility] [place] [address] 03/25/2012 08:02:36 03/25/2012 08:24:21 [id number] NEIDA Delaney, [facility], OFF[address] [place] [facility] [place] [address] 06/03/2012 13:59:36 06/03/2012 15:06:19 [id number] NEIDA Delaney, [facility], OFF[address] [place] [facility] [place] [address] 08/19/2012 11:16:44 08/19/2012 11:47:59 [id number] NEIDA Delaney, [facility], OFF[address] [place] [facility] [place] [address] 11/07/2012 09:27:18 11/07/2012 10:43:44 Education [id number] HAN [facility], [address] [place] [address] 05/12/2013 11:59:40 05/12/2013 13:00:26 Fatigue 65672117 will be seeing sleep med to set up sleep study, check labs Palpitations 28825433 se e rec's below Elevated blood-pressure reading without diagnosis of hypertension 625176836 pt very anxious today, she will check home BPs and call if >140/90. will be going for sleep study. [id number] Elin SHORT, [facility], OFFICE [address] [place] [address] 05/20/2013 09:37:22 05/20/2013 10:14:04 Palpitations 87934325 stress test neg, so reassured likely not CAD. but ervin check event monitor to assess for arrhythmia . f/u 1mo Essential hypertension 79487121 new, was higher in ED, will strart ACEI for now. w/ weight loss and potentiall y rx for LANA, may be able to wean off. call if side effects., f/u 1mo [id number] Elin SHORT, C, [address] [place] [address] 05/26/2013 10:03:23 05/26/2013 10:56:26 Adult health examination 670567573 see Risk Assessment and Lifestyle Change Counseling section above. pt would decline mammo until 48 given no risk fx. Counseling 352268329 Allergic rhinitis 70768641 anti-hist may be triggering palpitatio ns, so switch to singulair Low back pain 103281599 see below Essential hypertension 99227368 very well controlled on very los dose ACEI- will likley be able to d/c w/ weight loss and possibly CPAP if needed Insomnia 388095853 will see sleep med this mo and have sleep study [id number] RACHELLE Shaw, [facility], OFFICE [address] [place] [address] 07/22/2013 10:28:16 07/22/2013 11:16:35 Benign essential hypertension 9785704 Blood pressure at goal, but may have ACEI cough, so switch to HCTZ Asthma 801250351 start inhaled steroid, f/u 1mo, sooner if not improving [id number] MD HAN Hoffman, [facility], [address] [place] [address] 08/24/2013 13:25:42 08/24/2013 13:59:50 Benign essential hypertension 2987260 Blood pressure at goal off med, so will cont to work on losing weight and cont to monitor BPs. Palpitations 37722036 w/ u was neg, very infrequent now, seems related to GI gas. White bloo d cell count outside reference range 929147075 had repeat drawn this AM. is feeling well Obesity 669149075 has started diet, advised to add exercise [id number] , [facility], [address] [place] [address] 11/11/2013 08:53:04 11/11/2013 09:43:45 Venereal disease screening 771621265 Dysmenorrhea 239314349 m mitchell inserted today, f/u 1mo Intrauteri ne contraceptive device procedure 196574182 discussed risks, including but not limited to infection, perforatio n, bleeding, expulsion. Pt understand s and agreed to proceed. Also discussed possibilit y of irregular, light, or absent menses. Advised to avoid intercours e for several days, call if heavy bleeding, fever, abd or pelvic pain. Can take ibuprofen prn. Advised that IUD whelan snot protect against STDs. f/u 4-6weeks for string check. [id number] Lesvia Fernando LPN , [facility], [address] [place] [address] 12/09/2013 11:34:59 12/09/2013 11:58:53 Sinusitis 89593401 call if no improvemen t after 48h, or if worse at any time Premenstru al dysphoric disorder 894361 has not had menses. NOw has mirena and did not have menses w/ prior mirena so likely will have same pattern. call if sx recur [id number] Kalani Cooley , [facility], [address] [place] [address] 05/27/2014 13:28:00 05/27/2014 14:06:15 Sprain of wrist 03697319 Xrays normal in ER. Nothing on exam suggestive of snuffbox fx. Recommenda tions as below. [id number] Lamont Monet MD , [facility], OFFICE [address] [place] [address] 06/09/2014 12:51:30 06/09/2014 13:28:34 Benign essential hypertension 0648356 Blood pressure NOT at goal. advised she may be able to get to goal w/ diet and exercise changes leading to wt loss. But during the process of TLC, would be best to conrol BP w/ low dose ACEI. She has taken it in the past and tolerated well. f/u 3mo, sooner prn Sprain of wrist 73297575 advised not to return to her job that requires repetitive wrist motion until sx resolved [id number] Yoko Loya , [facility], [address] [place] [address] 08/17/2014 08:27:08 08/17/2014 09:02:03 Upper respiratory infection 63892391 Recommenda tions as below. [id number] Mickie Guadarrama , [facility], [address] [place] [address] 12/16/2014 12:02:49 12/23/2014 14:38:12 Upper respiratory infection 51526300 J06.9 nety pot incase this is an early sinius infection, steam, avoid antihistam kt,, call if worse [id number] Lamont Monet MD , [facility], OFFICE [address] [place] [address] 12/27/2014 11:14:13 12/27/2014 12:20:53 Adult health examination 050542433 Z00.00 see Risk Assessment and Lifestyle Change Counseling section above Counseling 124844901 Z71 .9 Dysuria 16171945 R30.9 treat while awaiting culture Benign ess ential hypertension 6655084 I10 Blood pressure at goal but ACEI causing rash, so switch to ARB, f/u 1mo Major depr ession, single episode 61694446 F32.0 discussed risk of increase anxiety w/ lexapro given hx of panic w/ prozac but pt willing to try starting at very low dose, f/u 1mo Eruption c aused by drug 87234132 L27.0 d/c ACEI [id number] Rubens Hopkins MD , [facility], [address] [place] [address] 01/11/2015 07:39:12 01/11/2015 08:23:17 Bacterial vaginosis 589843041 N76.0 Vaginal discharge 878299 006 N89.8 Tinea cruris 587441002 B 35.6 [id number] Art Meyer MD , [facility], [address] [place] [address] 01/29/2015 10:00:00 01/29/2015 10:51:45 Suprapubic pain 484085200 R10.33 Patient presents with suprapubic pressure rather [...] symptoms. Indication s for UC/ER use reviewed. [id number] Nate Benítez MD , [facility], [address] [place] [address] 03/28/2015 10:23:15 03/28/2015 11:50:28 Abdominal pain 96364749 R10.10 This upper abdominal pain which has [...] would be if you still had your gallblotto r. [id number] Daniela Arthur , [facility], OFFICE [address] [place] [address] 08/22/2016 13:08:59 08/22/2016 13:30:56 Foot pain 19850906 M79.671 Metatarsal bone fracture 791657511 S92.301A X-ray demonstrat es fracture at the base of the second metatarsal , well aligned, slightly distracted . Briefly reviewed with Dr. Barry Taveras, recommends walking boot, weightbear ing as tolerated, urgent referral to orthopedic s, may need surgical interventi on. [id number] Yaritza Casper NP , [facility], OFFICE [address] [place] [address] 01/10/2017 08:55:17 01/10/2017 09:34:05 Screening for malignant neoplasm of cervix 448729176 Z12.4 pap done today Adult heal th examination 196084955 Z00.00 Sleep apnea 40655881 G47 .30 hx of mild sleep apnea. never on CPAP. no issues since weight loss! Allergic rhinitis 568685 04 J30.9 will start OTC flonase [id number] Kalani Cooley , [facility], OFF[address] [place] [address] 01/22/2018 08:46:28 01/22/2018 09:21:15 Adult health examination 611365751 Z00.00 see Risk Assessment and Lifestyle Change Counseling section above Counseling 773012680 Z71 .9 - due for pap. 2017 NILM, +HPV- lipids wnl 2017 Depression screening 171 600132 Z13.89 depression screening tool administer ed, entered into emr, scored and discussed, time greater than 7.5 minutes. negative Screening for malignant neoplasm of cervix 391276014 Z12.4 [facility] 552420870 Z30.9 interested in another Mirena. last put in spring 2013. now noticing more spotting over the last year. will send case to [facility] Sleep apnea 07685602 G47 .30 hx of mild sleep apnea. never on CPAP. no issues since weight loss! [id number] MD HAN Moe, [facility], OFFICE [address] [place] [address] 02/14/2018 08:34:41 02/14/2018 09:29:36 Counseling 523267775 Z71.9 Acute uppe r respiratory infection 04423401 J06.9 Cough 86328500 R05 Elevated blood-pressure reading without diagnosis of hypertension 662408585 R03.0 [id number] MD HAN Moe, [facility], OFFICE [address] [place] [address] 06/09/2018 11:29:22 06/09/2018 14:10:57 Acute upper respiratory infection 53185282 J06.9 [id number] Kalani Cooley , [facility], OFFICE [address] [place] [address] 07/16/2018 10:25:27 07/16/2018 11:02:35 Asthma 658797530 J45.909 triggered by allergies- continue jen- start flovent twice a day, rinse mouth after use- albuterol as needed- follow up in 3 weeks, call sooner if breathing worsens Benign ess ential hypertension 2298477 I10 BP not at goal of <130/80. did not tolerate lisinopril or losartan in the past. will start low dose amlodipine and follow up in 3 weeks Pneumonia 026804563 J18. 9 Dx at [facility] in [place] 2 days ago. finish antibiotic s. albuterol as needed [id number] MD HAN Maguire, [facility], OFFICE [address] [place] [address] 08/19/2018 09:58:26 08/19/2018 11:22:35 Removal of intrauterine device 82868736 Z30.432 Insertion of intrauterine contraceptive device 03250100 Z30.430 Contraception care 35515 5005 Z30.40 Benign ess ential hypertension 2376548 I10 [id number] Kalani SHORT, [facility], OFFICE [address] [place] [address] 12/10/2018 12:10:27 12/10/2018 14:26:12 Vaginitis 48015396 N76.0 Exam nonspecifi c. Will send cultures and see what they show. Increased frequency of urination 231714709 R35.0 Pelvic discomfort , not frequency, but will r/o UTI. [id number] Rubens Hopkins MD , [facility], [address] [place] [address] 01/15/2019 09:24:18 01/15/2019 10:22:56 Hypertensive disorder 29854252 I10 Trying lifestyle changes-li sinopril(c ough), losartan(f eet and legs swelled), HCTZ (stopped because of concern about sulf)- Discussed trying the amlodipine and f/u in a few weeks.Med risks and side effects reviewed. Backache 435419353 M54.9 Tylenol , massage, heat.Can consider PTWill see chiropract or. Right flank pain 1334562 09 R10.9 U/A reassuring , improved from last visit. Can check culture.No CVA symptoms. No fevers.Thi s likely muscular since it is reproducib le with movement. Can consider imaging if symptoms persist or worsen and she is encouraged to return if this happens. [id number] Nate Benítez MD , [facility], [address] [place] [address] 02/05/2019 10:52:00 02/05/2019 11:31:40 Hypertensive disorder 49682196 I10 BP not at goal of <130/80 with amlodipine 2.5mg daily. will increase to 5mg daily- work on low salt/neisha josephine diet- continue regular physical activity- follow up at BP clinic in 2-3 weeks. bring BP readings did not tolerate lisinopril or losartan in the past. did not take hctz for c/o sulfa allergy Active or passive immunization 755164031 Z23 flu vaccine today Screening for malignant neoplasm of colon 413376099 Z12.11 discussed. 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 declines colo, will do ifobtx2 annually Foot pain 57847725 M79.6 71 started November/2019 when walking a lot. already scheduled with podiatry on [place] in [facility]. Naproxen twice a day with food for 1-2 weeks. ice 20-30 minutes at a time. Essential hypertension 42208534 I10 asymptomat ic. she has not tolerated a number of BP meds. She has not checked her BP in a while. She will check over the next week and report to the portal. BP goal is <130/<80. Also due for labs. She will schedule. continue working on balanced/l ow salt diet and regular physical activity Obesity 663798697 E66.9 interested in nutrition. will send referral [id number] LOIDA Bender, [facility], OFFICE [address] [place] [address] 06/05/2022 17:01:20 06/05/2022 17:32:33 Screening for malignant neoplasm of colon 497991846 Z12.11 Patient declining colonoscop y.Provided FOBT. Pain of le ft shoulder joint 1877408295 1067079 M25.512 Likely RC tendinitis .No weakness or injury to suggest tear.Recom mend PT - pt agreeable. x-ray to check for arthritis/ bone abnormalit ies.Rx: voltaren gelDiscuss ed if symptoms not improving with topical we can try a prednisone burst next.Patie nt will contact us and let us know. Hypertensive disorder 38 283710 I10 Is not taking any medication s. States she does not do well on them.BP elevated in clinic - states she usually has elevated BP due to nerves in clinic.F/U for annual physical and recheck BP then. [id number] Antonina Seay, JOSI , [facility], [address] [place] [address] 06/26/2022 10:06:57 06/26/2022 16:56:04 Adult health examination 907365939 Z00.00 Depression screening 171 997417 Z13.31 depression screening tool administer ed Screening for alcohol abuse 253454172 Z13.39 Alcohol use screening tool administer ed Essential hypertension 69868363 I10 BP is elevated today, has been [...] and continue the good work! Sleep apnea 84314289 G47 .30 Was tested for it, mild/borde rline. Does not use c-pap. No issues. 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 Not had one since.Woul d like to refer to vascular to discuss again. [id number] Adry Antonio RN Endoscopy , [address] [address] 07/19/2022 07:51:18 07/19/2022 13:06:42 [id number] Cindy Delvalle, PT Physical Therapy, [address] [address] 07/27/2022 07:19:58 07/30/2022 08:18:29 Pain of left shoulder joint 4505570030 4756748 M25.512 Patient is a 51-year old {{female* [...] pain.2. Perform left sidelying without shoulder pain. [employer] Goals:In 8 weeks, patient will:1. Demonstrat e [...] (initiated ), manual therapy PRN, modalities PRN. [id number] Cindy Delvalle, PT Physical Therapy, [address] [address] 08/03/2022 07:28:39 08/03/2022 10:10:58 Pain of left shoulder joint 3063571048 0099905 M25.911 [id number] Cindy Delvalle, PT Physical Therapy, [address] [address] 08/10/2022 07:29:32 08/10/2022 08:53:39 Pain of left shoulder joint 4159842423 4935002 M25.229 [id number] Cindy Delvalle, PT Physical Therapy, [address] [address] 08/17/2022 07:57:53 08/17/2022 09:16:19 Pain of left shoulder joint 7166710628 0236374 M25.787 [id number] JOSI Mckeon, [facility], OFFICE [address] [place] [address] 08/29/2022 07:54:13 08/29/2022 12:19:36 Skin tag 685224883 L91.8 Pulled it off clean/comp letely about 2 weeks ago.Madai e was reviewed in clinic and appears consistent [...] (cryothera py) or by shaving them off. [id number] ALEX PACHECO DO , [facility], [address] [place] [address] 12/24/2023 08:07:23 12/28/2023 12:14:38 Hyperlipidemia screening 930109870 Z13.220 Check lipids, advised to follow a heart healthy diet and; increase exercise. Anxiety state 020334500 F41.1 s2/2 new cancer dx.Reports significan t stress and anxiety related to recent cancer diagnosis and potential impact on work and financial stability. Previous trial of Lexapro resulted in panic attacks. -Initiate low-dose Sertraline and monitor for tolerance and efficacy. -Refer to in-house psychologi st and therapists for additional support. Hypertensive disorder 38 701332 I10 Hypertensi onStable blood pressure readings around 130/70. Previous trials of antihypert ensive medication s resulted in adverse effects including leg swelling, neuropathy , and rash.-Cont inue monitoring blood pressure. [id number] Sameera Mcmahan MD , [facility], [address] [place] [address] 01/17/2024 14:50:23 01/17/2024 15:20:20 Hypertensive disorder 18782317 I10 start dlitiazem 120 dailykeep followup with PCP in a few weekscall if concernsbr ing home BP cuff to next visit to calibratep t agrees with plans [id number] ALEX PACHECO DO , [facility], [address] [place] [address] 02/12/2024 08:51:43 02/13/2024 18:07:44 Hypertensive disorder 38699102 I10 Hypertensi onStable blood pressure readings around 130/70. Previous trials of antihypert ensive medication s resulted in adverse effects including leg swelling, neuropathy , and rash.-Cont inue monitoring blood pressure. Anxiety 65600753 F41.9 Discussed most effective treatment options to [...] Sunshine Member ID Guarantor Name 08/17/2022 1 [facility]) Alexia Ellington [id number] Alexia Ellington 08/29/2022 1 [facility] Alexia Ellington [id number] Alexia Ellington 12/24/2023 1 [facility]) Alexia Ellington [id number] Alexia Ellington 01/17/2024 1 [facility] ([facility] Alexia Ellington [id number] Alexia Ellington 02/12/2024 1 [facility] ([facility] Alexia Ellington [id number] Alexia Ellington Notes Date Note Type [...] pieces left.Likely secondary to bra strap. Antonina Sarabia-Jt headley PA-C [address] [place] [address], [phone], [facility] 08/29/2022 08:19:38 12/24/2023 text/html 12/24/23- Pt her [...] and slightly elevated triglycerides. ALEX PACHECO DO [address] [place], [address], [facility] 12/26/2023 08:13:43 01/17/2024 text/html pt presents to tomas piña BP. Recent dx breast cancer. At apts, BP always high. Has cuff at home, but very old. Read 200/?. No CP, SOB Sameera Mcmahan MD [address] [place] [address], [phone], [facility] 01/17/2024 15:21:45 02/12/2024 text/html 02/12/24- Pt her [...] initially a lumpectomy. ALEX PACHECO DO [address] [place], [address], [facility] 02/12/2024 13:12:16 OBGyn Episode No OBEpisode recorded.
== END 2024-04-16 13:19 | disposition home or self-care (01) ==
PROVIDERS: PCP Internal Medicine Nephrology; Visit Provider Physician Assistant Surgical
DX: I83.11 Varicose veins of right lower extremity with inflammation (principal); I83.12 Varicose veins of left lower extremity with inflammation
CPT/HCPCS: 99204

== ENCOUNTER → 2024-04-16 12:42 | Outpatient (BNVA) | payer OTHER, SELFPAY | PROVIDERS: PCP Internal Medicine Nephrology; Visit Provider Physician Assistant Surgical ==

== ENCOUNTER 2024-05-14 08:11 | Outpatient (REF) | payer OTHER, SELFPAY ==
--- NOTE | ~2024-05-14 | US_ITS ---
EXAMINATION: US LOWER EXTREMITY VENOUS (REFLUX EXAM), BILATERAL CLINICAL INFORMATION: Varices. 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 TECHNIQUE: Color flow triplex imaging and compression Doppler was performed to evaluate both the deep and the superficial systems bilaterally. To evaluate the superficial system, the examination was performed in the upright position. Color-flow Doppler ultrasound and compression ultrasound were utilized. In addition, maneuvers were utilized to demonstrate reflux. FINDINGS: 1. DEEP VENOUS ULTRASOUND OF THE RIGHT LOWER EXTREMITY: Common Femoral Vein: Compressible, normal respiratory variation and augmented flow. Femoral Vein: Compressible, normal color flow and augmentation. Popliteal Vein: Compressible, normal augmentation. Deep Reflux: There is no evidence of reflux in the deep system in either the common femoral vein, superficial femoral or the popliteal vein. There is no evidence of a Ramires's cyst. 2. SUPERFICIAL ULTRASOUND WITH DOPPLER OF RIGHT LOWER EXTREMITY: GREAT SAPHENOUS VEIN: Saphenofemoral Junction: 0.5 cm; Reflux: 0 ms Proximal Thigh: 0.4 cm; Reflux: 0 ms Mid Thigh: 0.2 cm; Reflux: 0 ms Distal Thigh: 0.2 cm; Reflux: 0 ms At Knee: 0.2 cm; Reflux: 0 ms Proximal Calf: 0.2 cm; Reflux: 0 ms Mid Calf: 0.2 cm; Reflux: 0 ms Distal Calf: 0.1 cm; Reflux: 1548 ms DUPLICATED MEDIAL GREAT SAPHENOUS VEIN: Diameter: None imaged Reflux: NA DUPLICATED LATERAL GREAT SAPHENOUS VEIN: Diameter: 0.5 cm. Reflux: No more than 1956 ms. SMALL SAPHENOUS VEIN: Saphenopopliteal Junction: 0.2 cm; Reflux: 0 ms Proximal: 0.1 cm; Reflux: 0 ms Distal: 0.3 cm; Reflux: 0 ms VEIN OF GIACOMINI: Size: NA Reflux: NA PERFORATORS: Location: Proximal and mid calf and heel region. Size: NA Reflux: NA VARICOSITIES: Location: Proximal thigh and proximal to mid calf and accessory saphenous vein mid segment. Size: 0.2-0.8 cm. Reflux: No more than 3008 ms at the proximal calf and more than 2800 ms in the mid segment of the accessory saphenous vein. 3. DEEP VENOUS ULTRASOUND OF THE LEFT LOWER EXTREMITY: Common Femoral Vein: Compressible, normal respiratory variation and augmented flow. Femoral Vein: Compressible, normal color flow and augmentation. Popliteal Vein: Compressible, normal augmentation. Deep Reflux: There is no evidence of reflux in the deep system in either the common femoral vein, superficial femoral or the popliteal vein. There is no evidence of a Ramires's cyst. 4. SUPERFICIAL ULTRASOUND WITH DOPPLER OF LEFT LOWER EXTREMITY: GREAT SAPHENOUS VEIN: Saphenofemoral Junction: 0.7 cm; Reflux: 0 ms Proximal Thigh: 0.4 cm; Reflux: 0 ms Mid Thigh: 0.4 cm; Reflux: More than 2520 ms Distal Thigh: 0.4 cm; Reflux: No more than 2576 ms At Knee: 0.3 cm; Reflux: 0 ms Proximal Calf: 0.3 cm; Reflux: More than 2604 ms Mid Calf: 0.2 cm; Reflux: 0 ms Distal Calf: 0.2 cm; Reflux: 0 ms DUPLICATED MEDIAL GREAT SAPHENOUS VEIN: Diameter: None imaged Reflux: NA DUPLICATED LATERAL GREAT SAPHENOUS VEIN: Diameter: None imaged. Reflux: NA SMALL SAPHENOUS VEIN: Saphenopopliteal Junction: 0.2 cm; Reflux: 0 ms Proximal: 0.2 cm; Reflux: 0 ms Distal: 0.2 cm; Reflux: 0 ms VEIN OF GIACOMINI: Size: 0.2 cm. Reflux: NA PERFORATORS: Location: Small saphenous vein mid segment and thigh and healed and distal calf. Size: 0.1-0.3 cm. Reflux: 2584 ms in the thigh and heel region. VARICOSITIES: Location: Mid calf, proximal and distal thigh and great saphenous vein junction. Size: 0.2-0.4 cm. Reflux: No more than 2828 ms at the knee level and 1160 ms at the proximal thigh. US/US venous insuf bilat IMPRESSION: Right: Venous insufficiency, great saphenous vein in the ankle and the lateral accessory at the mid thigh. Varices at the proximal calf and knee accessory saphenous vein with reflux. Left: Venous insufficiency, great saphenous vein from the mid thigh to the distal and below the knee. Varices at the knee and proximal thigh with reflux. Perforators in the thigh and heel with reflux. Electronically signed by: Ez Roach MD 05/14/2024 10:35 AM EDT
--- OUTSIDE RECORDS SUMMARY | 2024-05-14 08:19 | XMS_ITS | Continuity of Care Document ---
Author Organization [place] - [facility], FP, [facility], OFFICE Address [address] [place] [address] Care Team Providers Care Director Of Patient Safety Name Role Phone JADA PACHECO Primary Care Provider [phone] Assessment Encounter Date Assessment Date Assessment LastModified by Organization Details LastModified Time 05/06/2024 05/06/2024 Pulmonary Embolism History of PE increases clotting risk. Currently on Eliquis. No current PE symptoms. - Be aware of potential PE symptoms, including chest pain, shortness of breath, and fever. General Health Maintenance Due for shingles and pneumonia vaccinations. Cervical cancer screening due in September. Elevated LDL noted, dietary changes considered. - Consider receiving pneumonia vaccination at the pharmacy. - Attend cervical cancer screening appointment in September. - Monitor LDL levels and consider dietary changes such as adopting a Mediterranean diet. Follow-up To follow up in three to four months. No urgent concerns. - Schedule follow-up appointment in three to four months. [email or web address] Not available 05/12/2024 14:12:53 Plan of Treatment Reminders Order Date Submit Date Provider Last Modified By Organization Details Last Modified Time Details Appointments [facility] [place] [facility] 2024 11:00A M Lucinda Obando Not available Not available Not available Follow Up, 15 2024 08:15A Alyce PACHECO, Not available Not available Not available Lab None recorded. Referral None recorded. Procedures None recorded. Surgeries None recorded. Imaging None recorded. Medication Orders None recorded. Patient TargetsNo targets recorded. Patient InstructionsNo instructions recorded. Reason for Referral None Reported. Problems Name Problem SNOMED Code Status Onset Date Resolution Date Notes Provider Name and Address Organization Details Recorded Time Sleep apnea 95567278 Active Zehra Mckinnon MD [address] [place], [place] [address], [address], [facility] 6 11:27:34 Herpes simplex 78119168 Active 2017 Yaritza Casper NP [address] [place], [place] [address], JASPAL, [address], [facility] 8 09:00:33 Asthma 392920157 Active 2018 Yaritza Casper NP [address] [place], [place] [address] [address], [facility] 9 10:51:56 Hyperten sive disorder 69448996 Active 2018 Yaritza Casper NP [address] [place], [place] [address] [address], [facility] 9 11:06:11 Obesity 172645490 Completed 201311/30/2021 ISABELLE rOr, [facility] 2 12:08:08 Morbid obesity 775224545 Active 2021 BMI > or = 35 plus diagnosis of HTN. 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 Zehra Mckinnon MD [address] [place], [place] [address] [address], [facility] 6 11:27:34 Dysuria 21318511 Completed 04/01/2011 Zehra Mckinnon MD [address] [place] [address] [place], [address], [facility] 6 11:27:34 Acute upper respirat ory infectio n 96353275 Completed 04/01/2011 Zehra Mckinnon MD [address] [place] [address] [place], [address], [facility] 6 11:27:34 Influenz a 7174312 Completed 04/01/2011 Zehra Mckinnon MD [address] [place], [place] [address], [address], [facility] 6 11:27:34 Abdomina l pain 90790215 Completed 200804/01/2011 Zehra Mckinnon MD [address] [place] [address] [place], [address], [facility] 6 11:27:34 Urinary tract infectio us disease 44734705 Completed 04/01/2011 Zehra Mckinnon MD [address] [place], [place] [address] [place], [address], [facility] 6 11:27:34 Problem Notes None recorded. Procedures Surgical History Date Name Laterality Status Provider Name and Address Organization Details Recorded Time 08/18/19 95672: Therapeutic Exercise completed Cindy Delvalle, PT [address] [place], [address], [facility] 08/17/2022 08:03:33 08/18/19 96707: Manual Therapy completed Cindy Delvalle, PT [address] [facility] [place], [address], [facility] 08/17/2022 08:03:33 08/11/19 18897: Therapeutic Exercise completed Cindy Delvalle, PT [address] [place], [address], [facility] 08/10/2022 07:33:11 08/11/19 76449: Manual Therapy completed Cindy Delvalle, PT [address] [place], [address], [facility] 08/10/2022 08:46:40 08/04/19 23 69956: Therapeutic Exercise completed Cindy Delvalle, PT [address] [place], [address], [facility] 08/03/2022 08:48:13 08/04/19 23 95480: Manual Therapy completed Cindy Delvalle, PT [address] [place], [address], [facility] 08/03/2022 08:48:15 07/28/19 23 Smoking Cessation Counselling completed Cindy Delvalle, PT [address] [place], [address], [facility] 07/27/2022 07:19:57 07/28/19 23 Physical Activity Counselling completed Cindy Delvalle, PT [address] [place], [address], [facility] 07/27/2022 07:19:57 07/28/19 23 55379: PT Eval Low Complexity completed Cindy Delvalle, PT [address] [place], [address], [facility] 07/27/2022 07:19:57 07/28/19 23 Treatment and Advice completed Cindy Delvalle, PT [address] [place], [address], [facility] 07/28/2022 08:28:13 06/27/19 23 Asthma Control Test (12 + years old) completed RACHELLE Laws [facility] 06/26/2022 10:15:51 02/06/20 19 Asthma Control Test (12 + years old) completed Yajaira Arrington CMA [facility] 02/05/2019 08:25:52 01/16/20 19 POC Urinalysis Testing completed Jackie James [facility] 01/15/2019 09:42:14 12/11/19 19 POC Urinalysis Testing completed Lesvia Fernando LPN [facility] 12/10/2018 12:20:33 08/20/19 19 POC hCG Testing completed Ruthie Infante CMA [facility] 08/19/2018 10:07:28 08/20/19 19 IUD Insertion completed Rubens Hopkins MD [address] [place] [address], [address], [facility] 08/22/2018 04:43:25 08/20/19 19 IUD Removal completed Ruthie Infante CMA [facility] 08/19/2018 10:07:26 02/15/20 18 Asthma Control Test (12 + years old) completed Sonu Ibarra [facility] 02/14/2018 08:47:22 11/12/19 14 IUD Insertion completed Lamont Monet MD [address] [place] [address], [address], [facility] 11/12/2013 09:53:02 03/28/19 12 Cholecystectomy completed Lamont Monet MD [address] [place] [address], [address], [facility] 04/01/2011 15:01:33 completed Not Available [facility] 01/11/2011 06:06:16 Imaging Results None recorded. Procedure Notes None recorded. Medical Equipment None Reported. Allergies Allergen ID Allergen Name Allergen Category Reaction Reaction Severity Criticality Documentation Date Start Date Code Code System Note Provider Name and Address Organization Details Recorded Time 684436 lisinopri l medicatio n rash Not available Not available 12/27/2014 70130 RxNorm Lamont Monet MD [address] [place], [place] [address], [address], [facility] 5 12:32:49 025683 amlodipin e medicatio n edema moderate Not available 03/04/2019 76245 RxNorm with shoot ing pain Nelly Waddell PA-C [address] [place], [place] [address], [address], [facility] 0 11:29:10 419924 hydrochlo rothiazid e medicatio n edema Not available Not available 06/03/2020 5487 RxNorm foot pain Yaritza Casper NP [address] [place], [place] [address], [address], [facility] 09:41:38 36796 Compazine medicatio n other mild Not available 04/14/201010647 6 RxNorm neck spasm s Not Available [facility] 06:05:41 60724 Substance with sulfonami de structure and antibacte rial mechanism of action (substanc e) medicatio n rash Not available Not available 04/14/2010 40064 8003 SNOMED Not Available [facility] 06:05:41 Medications Name Sig Start Date Stop [...] Take 1 device by intraute rine route. 05/06 completed NOT USING 01/17/24 mk Not Available Not Available Not Available acetamino phen 325 mg tablet TAKE TWO TABLETS BY MOUTH EVERY 6 HOURS FOR 14 DAYS NEEDED FOR PAIN 05/06 completed Not Available Not Available Not Available fluconazo le 150 mg tablet take 1 tablet by mouth A ONE TIME DOSE 12/10 completed Not Available Not Available Not Available citalopra m 10 mg tablet Take 1 tablet every day by oral route for 30 days. active Not taking 05/06/24 PP Not Available Not Available Not Available lidocaine 4 % topical cream APPLY ONE APPLICAT ION TOPICALL Y TWICE A DAY. APPLY AROUND BOTH AREOLAS, 1 HOUR PRIOR TO ARRIVAL FOR SURGERY AND COVER WITH SARAN WRAP. 05/06 completed Not Available Not Available Not Available Pyridium 200 mg tablet Take 1 [...] ALTERNAT ING EVERY 6 HOURS WITH TYLENOL. 05/06 completed Not Available Not Available Not Available cephalexi n 500 mg capsule TAKE ONE CAPSULE BY MOUTH FOUR TIMES A DAY FOR 5 DAYS 05/06 completed Not Available Not Available Not Available Ocuflox 0.3 % eye drops Instill [...] TAKE ONE TABLET BY MOUTH EVERY DAY 05/06 completed Not Available Not Available Not Available diltiazem CD 120 mg capsule,e xtended release 24 hr Take 1 capsule every day by oral route. active Not Available Not Available No [...] oral route at bedtime for 30 days. 05/06 completed Not Available Not Available Not Available amoxicill in 875 mg-potass ium clavulana te 125 mg tablet Take 1 tablet every 12 hours by oral route for 10 days. 2014 active Not Available Not Available Not Avai lable oxycodone 5 mg tablet TAKE ONE TABLET BY MOUTH EVERY 6 HOURS NEEDED FOR PAIN active Not taking 05/06/24 PP Not Available Not Available Not Available Daily Multi-Vit cartwright tablet take 1.00 cap daily active Not Available Not Available No t Available enoxapari n 40 mg/0.4 mL subcutane ous syringe INJECT 1 SYRINGE 0.4 ML) UNDER THE SKIN DAILY FOR 7 DAYS 05/06 completed Not Available Not Available Not Available medroxypr ogesteron e 150 mg/mL intramusc [...] BY TOPICAL ROUTE 4 TIMES PER DAY 05/06 completed Not Available Not Available Not Available GaviLyte- G 236 gram-22.7 4 gram-6.74 [...] Relief 50 mcg/actua tion nasal spray,juan pension Joffre 1 spray every day by intranas al [...] saturation in Arterial blood by Pulse oximetry Systolic blood pressure Diastolic blood pressure Provider Name and Address Organization Details Last Updated DateTime 5 156.85 cm 84 /min 99 % 99 % 108 mm[Hg] 80 mm[Hg] RACHELLE Escalante [facility] 5 15:25:31 Social History Question Answer Notes LastModified by Organizat ion Details LastModified Time Tobacco Smoking Status Former Smoker quit age 17yo Lamont Monet MD [address] [place] [address], [address], [facility] 04/14/2010 09:31:01 Do You Wear A Helmet When Biking? No N/a Information not available 01/10/2017 What Is Your Level Of Caffeine Consumption? Occasional 2 Cups Daily Information not available 06/26/2022 How Much Tobacco Do You Chew? None Information not available 12/27/2014 Are You Currently Employed? Yes Information not available 05/06/2024 What Type Of Diet Are You Following? REGULAR No Junk Food Information not available 04/14/2010 Which Illicit Or Recreational Drugs Have You Used? 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 05/06/2024 Information not available 05/06/2024 How Many Children Do You Have? 1 [...] 09:15:40 Notes:no breast CA, colon CA , PA Medical History Condition Response Allergic Rhinitis Y [...] virus, trivalent, preservative 2 completed Not Available [facility] 03/14/2019 02:27:39 Tdap 2 completed Not Available [facility] 03/14/2019 02:25:09 Influenza, split virus, quadrivalent, PF 9 completed Not Available [facility] 03/14/2019 02:27:07 COVID-19, mRNA, LNP-S, PF, 100 mcg/0.5mL dose or 50 mcg/0.25mL dose 1 completed Yaritza Casper NP [address] [place] [address], [address], [facility] 06/03/2020 09:38:43 Td (adult), 5 Lf tetanus toxoid, preservative free, adsorbed 3 completed RACHELLE Laws, [facility] 06/26/2022 11:13:12 Influenza, split virus, quadrivalent, preservative 2 completed JASPAL Woods [facility] 12/04/2021 08:57:30 Past Encounters Encounter ID Performer Location Encounter Start Date Encounter Closed Date Diagnosis/Indication Diagnosis SNOMED-CT Code Diagnosis ICD10 Code Diagnosis Note [id number] DO HAN RODRIGUEZ, [facility], OFFICE [address] [place] [address] 05/06/2024 15:01:08 05/13/2024 08:40:43 Malignant tumor of breast 264332290 C50.012 History of left breast invasive ductal carcinoma, ER positive, VA positive, HER2 negative, and invasive lobular carcinoma. Post-bilat eral mastectomy with no lymph node involvemen t. Awaiting oncologist consultati on for chemothera py or hormone therapy decision. No radiation planned.- Continue follow-up with plastic surgeon for tissue ironmolder management .- Attend appointmen t with medical oncologist next month to discuss further treatment options. Hypertensive disorder 38 496598 I10 Stable blood pressure readings around 130/70. Previous trials of antihypert ensive medication s resulted in adverse effects including leg swelling, neuropathy , and rash.-Cont inue monitoring blood pressure. Anxiety 12633686 F41.9 Discussed most effective treatment options to include daily preventati ve medication and/or treatment strategies from behavioral health specialist . Reinforced that this is a normal physiologi c response that is being triggered at abnormal times. Reviewed concept of as needed medication s for anxiety symptoms. Varicose v eins of lower extremity 89380011 I83.93 Varicose Veins with SwellingEx perienced leg swelling with varicose vein. Ultrasound showed no DVT. On Eliquis, nearing end of starter pack. Specialist suggests possible discontinu ation before breast reconstruc tion surgery. History of PE increases clotting risk.- Complete current course of Eliquis.- Attend follow-up appointmen t for comprehens joshua leg ultrasound .- Consider discontinu ing Eliquis before second stage surgery as per specialist 's note.- Use compressio n stockings as needed.- Monitor for symptoms of DVT or PE, such as leg swelling, redness, or warmth. Health Concerns Section Related Observation LastModified by Organization Natasha price LastModified Time None Recorded Concern Status LastModified by Organization Details LastModified Time None Recorded Payers Encounter Date Sequence Insurance Name Policy Number Policy Sunshine Covered Member ID Sunshine Member ID Guarantor Name 05/06/2024 1 [facility] Alexia Ellington [id number] Alexia Ellington Notes Date Note Type Note Provider Name and Address Organization Details Recorded Time 05/06/2024 text/html 3 mon f/u per PC . Recent Double Mastectomy with bilateral lymph node removal.History of Present IllnessThe patient, a 53-year-old female with a history of breast cancer, presents for a follow-up visit after undergoing a bilateral mastectomy. She reports that her healing from the surgery is progressing well, with some residual soreness. The patient has returned to work after a five-week absence and is currently in the process of having expanders filled with saline, which is causing some discomfort. She reports that the drains were removed two weeks after surgery and she has been seeing a plastic surgeon for follow-up care. The patient also mentions that she has started to have saline added to the expanders and is due for another appointment next week.In addition to her breast cancer treatment, the patient reports a concern about a potential blood clot in her leg. She has a large varicose vein that recently became swollen, prompting a visit to the emergency room. An ultrasound did not reveal any deep vein thrombosis (DVT), but she was started on Eliquis as a precaution.The patient also discusses her history of a pulmonary embolism and her anxiety, which has been heightened due to her recent health issues. She has tried medications for anxiety in the past but found them to make her feel dull. She reports that her anxiety has decreased somewhat since her surgery, but she is still feeling anxious about her upcoming oncology appointment and potential future treatments. Previous Note: 02/12/24- Pt here today for a follow up visitDiscuss medicationsDiscuss [...] treatment plan, which was initially a lumpectomy. JADA PACHECO, [address], [address], [facility] 05/12/2024 14:13:06 OBGyn Episode No OBEpisode recorded.
--- OUTSIDE RECORDS SUMMARY | 2024-05-14 08:19 | XMS_ITS | Data Portability ---
Author Organization [facility], [facility] Address [address] [place] [address] Care Team Providers Care News Intern Name Role Phone ALEX PACHECO Primary Care Provider [phone] Assessment Encounter Date Assessment Date Assessment LastModified by Organization Details LastModified Time 12/24/2023 12/24/2023 Final Diagnosis: Breast, Left, upper inner quadrant, 7 cm from nipple, ultrasound guided core needle biopsy (Ribbon clip): - Invasive ductal carcinoma, grade 1. A. Histologic Abraham score (tubule formation score: 2; nuclear pleomorphism [...] was transferred to the Specialists at the [facility] [place]. An appointment was made for consultation with [...] and I agree with this report. WSN: [id number] Ordering Physician: Raysa Noriega Dictated By: Dorinda Ann NP Dictated Date/Time: 12/20/23 2:32 pm Reviewed By: Rox Mosquera MD Signed By: Rox Mosquera MD Signed Date/Time: 12/20/23 2:37 pm Transcribed By: ALIYA Stamping Operator Date/Time: 12/20/23 1:33 pm Birads: Assessment & Plan Breast Cancer Recently diagnosed, awaiting further details on marker testing and treatment plan. Lymph node biopsy scheduled for next week. -Coordinate care with oncology team at [facility]. -Review results from [facility] once received. Hypertriglyceridemia Slightly elevated triglycerides noted on previous labs. -Encourage continued healthy diet and lifestyle. -Consider repeating lipid panel at next visit. Follow-up in 3 months to ensure continuity of care and address any new concerns. Not available 12/26/2023 08:13:22 05/06/2024 05/06/2024 Pulmonary Embolism History of PE [...] follow-up appointment in three to four months. Not available 05/12/2024 14:12:53 Plan of Treatment Reminders Order Date Submit Date Provider Last Modified By Organization Details Last Modified Time Details [facility]ointments [facility] 2024 11:00A M Briana Macedo, Property Technician Not available Not available Not available Follow Up, 15 2024 08:15A M ALEX PACHECO, DO Not available Not available Not available Lab CMP, serum or plasma 2023 024 [facility], [address] [place] [address], [address], 04/30/2024 10:55:20 TSH, serum or plasma 2023 024 [facility], [address] [place] [address], [address], 04/30/2024 14:10:33 HbA1c (hemoglob in A1c), blood 2023 024 [facility], [address] [place] [address], [address], 04/29/2024 14:37:32 lipid panel, serum 2023 024 [facility], [address] [place] [address], [address], 04/30/2024 10:55:21 [facility] Recent diagnosis of [facility] cancer. Patient strugglin g emotional ly and agreeable to therapy referral to help cope with new diagnosis and continue working. 2023 024 [email or web address] [facility] [address] [place] [address], [address], 12/26/2023 08:57:20 Procedures None recorded. Surgeries None recorded. Imaging None recorded. Medication Orders doxazosin 2 mg tablet 2023 024 [place] [address] [facility], [address] [place], [address], 05/06/2024 15:19:06 citalopra m 10 mg tablet 2023 024 [place] [address] [facility], [address] [place], [address], 05/06/2024 15:18:42 diltiazem CD 120 mg capsule,e xtended release 24 hr 2023 024 [place] [facility], [address] [place], [address], 01/17/2024 15:20:11 sertralin e 25 mg tablet 2023 [place] [address] [facility], [address] [place], [address], 05/06/2024 15:20:45 Patient TargetsNo targets recorded. Patient InstructionsNo instructions [...] Abnormal Flag Note LastModifiedBy Organization Detail LastModifiedTime 04/30/1904/29/2024 HGB A1C hemoglobin A1C 5.5 % 4.8-6. 0 Goal: <7% in Patie nts with Diabe prachi An A1c betwe en 5.7-6 .4% is ident ified as pre-d iabet es and sugge sts risk for progr essio n to diabe prachi Two a1c value s of 6.5% or highe r is consi stent with a diagn osis of diabe prachi but may need furth er confi rmati on Not Available [address], [address], 04/29/2024 14:37:32 04/30/19 25 04/29/2024 HGB A1C estimated average glucose 111.2 mg/dL Not Available [address], [address], 04/29/2024 14:37:32 04/30/19 25 04/30/2024 COMP. METAB OLIC PANEL glucose 105 mg/dL 70-100 high Not Available [address], [address], 04/30/2024 10:55:20 04/30/19 25 04/30/2024 COMP. METAB OLIC PANEL BUN 14 mg/dL 7-18 Not Available [address], [address], 04/30/2024 10:55:20 04/30/19 25 04/30/2024 COMP. METAB OLIC PANEL creatinine 0.7 mg/dL 0.8-1. 3 low Not Available [address], [address], 04/30/2024 10:55:20 04/30/19 25 04/30/2024 COMP. METAB OLIC PANEL B/C 20.0 ratio Not Available [address], [address], 04/30/2024 10:55:20 04/30/19 25 04/30/2024 COMP. METAB OLIC PANEL GFR >=60ML /MIN mL/mi n normal >=60m L/min - Anuja l or midly reduc ed <60mL /min- Decre ased kidne y funct ion <15mL /min - Kidne y failu re [facility] calcu lates estim ated Glome rular Filtr ation Rate (eGFR ) using the Chron ic Kidne y Disea se Epide miolo gy Colla borat ion (CKD- EPI) Equat ion (Rosey haney et. al 2020) as recom regina d by the Natio nal Kidne y Found ation . eGFR is based on age, serum creat inine , and sex. CKD-E PI does not calcu late eGFR by race, does not apply to child ysabel (age <18 years ), and shoul d not be used in pregn jannette. Not Available [address], [address], 04/30/2024 10:55:20 04/30/19 25 04/30/2024 COMP. METAB OLIC PANEL sodium 140 mmol/ L 136-14 5 Not Available [address], [address], 04/30/2024 10:55:20 04/30/19 25 04/30/2024 COMP. METAB OLIC PANEL potassium 4.3 mmol/ L 3.5-5. 1 Not Available [address], [address], 04/30/2024 10:55:20 04/30/19 25 04/30/2024 COMP. METAB OLIC PANEL chloride 102 mmol/ L 96-107 Not Available [address], [address], 04/30/2024 10:55:20 04/30/19 25 04/30/2024 COMP. METAB OLIC PANEL anion gap 11.2 5.0-15 .0 Not Available [address], [address], 04/30/2024 10:55:20 04/30/19 25 04/30/2024 COMP. METAB OLIC PANEL CO2 27 mmol/ L 21-32 Not Available [address], [address], 04/30/2024 10:55:20 04/30/19 25 04/30/2024 COMP. METAB OLIC PANEL calcium 9.5 mg/dL 8.5-10 .3 Not Available [address], [address], 04/30/2024 10:55:20 04/30/19 25 04/30/2024 COMP. METAB OLIC PANEL total protein 7.4 g/dL 6.4-8. 2 Not Available [address], [address], 04/30/2024 10:55:20 04/30/19 25 04/30/2024 COMP. METAB OLIC PANEL albumin 3.8 g/dL 3.4-5. 0 Not Available [address], [address], 04/30/2024 10:55:20 04/30/19 25 04/30/2024 COMP. METAB OLIC PANEL globulin 3.6 g/dL Not Available [address], [address], 04/30/2024 10:55:20 04/30/19 25 04/30/2024 COMP. METAB OLIC PANEL A/G 1.1 ratio 0.8-2. 0 Not Available [address], [address], 04/30/2024 10:55:20 04/30/19 25 04/30/2024 COMP. METAB OLIC PANEL total bilirubin 0.40 mg/dL 0.00-1 .00 Not Available [address], [address], 04/30/2024 10:55:20 04/30/19 25 04/30/2024 COMP. METAB OLIC PANEL AST 14 U/L 0-37 Not Available [address], [address], 04/30/2024 10:55:20 04/30/19 25 04/30/2024 COMP. METAB OLIC PANEL ALT 28 U/L 6-63 Not Available [address], [address], 04/30/2024 10:55:20 04/30/19 25 04/30/2024 COMP. METAB OLIC PANEL alk. phos. 122 U/L 50-136 Not Available [address], [address], 04/30/2024 10:55:20 04/30/19 25 04/30/2024 LIPID PANEL cholesterol 252 mg/dL <200 mg/dl Day able 200-2 39 mg/dl Borde rline High >240 mg/dl High Not Available [address], [address], 04/30/2024 10:55:21 04/30/19 25 04/30/2024 LIPID PANEL triglyceride s 229 mg/dL <150 mg/dL Anuja l 150-1 99 mg/dL Borde rline High 200-4 99 mg/dL High >500 mg/dL Very High Not Available [address], [address], 04/30/2024 10:55:21 04/30/19 25 04/30/2024 LIPID PANEL direct HDL 51 mg/dL <40 mg/dl - Major Risk for CHD >60 mg/dl - Negat joshua Risk for CHD Not Available [address], [address], 04/30/2024 10:55:21 04/30/19 25 04/30/2024 LDL - CALCU LATED LDL - calculated 155 RISK CATEG ORY LDL GOAL _ CHD or CHD Risk Equiv alent s <100 mg/dl (10-y ear risk >20%) 2+ Risk Facto rs <130 mg/dl (10-y ear risk <= 20%) 0-1 Risk Facto r? <160 mg/dl ? Almos t all peopl e with 0-1 risk facto r have a 10 year risk <10%, thus 10 year risk asses ment in peopl e with 0-1 risk facto r is not neces reed. Not Available [address], [address], 04/30/2024 10:55:22 03/0504/30/2024 TSH TSH 1.41 uIU/m L 0.50-6 .00 The Ameri can Colle ge of Endoc rinol ogy and Ameri can Thyro id Assoc iatio n recom mend goal TSH value s betwe en 0.4-4 .0 mIU/m L. Not Available [facility] [address] [facility], [place], [address], 04/30/2024 14:10:33 11/29/19 24 11/06/2023 MAMMO , scree princess No observ ation record ed. [email or web address] [facility] [address] [place], [address], 01/03/2024 14:22:55 11/29/19 24 11/20/2023 MAMMO , diagn ostic , unila teral No observ ation record ed. [email or web address] [facility] [address] [place], [address], 01/03/2024 14:22:55 11/29/19 24 11/20/2023 US, breas t, unila teral No observ ation record ed. [facility] [place] [address] [facility] [address] [place], [address], 01/03/2024 14:22:55 01/07/20 24 01/07/2024 US, breas t, bilat eral, limit ed No observ ation record ed. [email or web address] [facility] [address] [place], [address], 01/09/2024 11:56:49 01/08/20 24 01/08/2024 US, breas t, bilat eral, limit ed No observ ation record ed. [email or web address] [place] [address] [facility] [place] [address] [place], [address], 01/09/2024 11:56:49 Result Notes None recorded. Problems Name Problem SNOMED Code Status Onset Date Resolution Date Notes Provider Name and Address Organization Details Recorded Time Sleep apnea 18313167 Active Zehra Mckinnon MD [address] [place], [place] [address]reynaldo marin, JASPAL, [address], [facility] 6 11:27:34 Herpes simplex 59277439 Active 2017 Yaritza Casper, LOIDA [address] [place] [address] [place] mar[place], JASPAL, [address], [facility] 8 09:00:33 Asthma 422644329 Active 2018 Yaritza Casper, LOIDA [address] [place], [place] [address]raffy marin, JASPAL, [address], [facility] 9 10:51:56 Hyperten sive disorder 29439961 Active 2018 Yaritza Casper NP [address] [place], [place] [address]reynaldo marin, JASPAL, [address], [facility] 9 11:06:11 Obesity 654613075 Completed 201311/30/2021 ISABELLE Orr, [facility] 2 12:08:08 Morbid obesity 036300677 Active 2021 BMI > or = 35 plus diagnosis of HTN. ISABELLE Orr, 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 Active Zehra Mckinnon MD [address] [place], [place] [address]A[place], J[place], [address], [facility] 6 11:27:34 Dysuria 21334843 Completed 04/01/2011 Zehra Mckinnon MD [address] [place] [address] [place], [address], [facility] 6 11:27:34 Acute upper respirat ory infectio n 14270670 Completed 04/01/2011 Zehra Mckinnon MD [address] [place] [address] [place], [address], [facility] 6 11:27:34 Influenz a 8979318 Completed 04/01/2011 Zehra Mckinnon MD [address] [place] [address] [place], [address], [facility] 6 11:27:34 Abdomina l pain 37543552 Completed 200804/01/2011 Zehra Mckinnon MD [address] [place] [address] [place], [address], [facility] 6 11:27:34 Urinary tract infectio us disease 53201962 Completed 04/01/2011 Zehra Mckinnon MD [address] [place] [address] [place], [address], [facility] 6 11:27:34 Problem Notes None recorded. Procedures Surgical History Date Name Laterality Status Provider Name and Address Organization Details Recorded Time 08/18/19 89785: Therapeutic Exercise completed Cindy Delvalle, PT [address] [place] [place], [address], [facility] 08/17/2022 08:03:33 08/18/19 55162: Manual Therapy completed Cindy Delvalle, PT [address] [place], [address], [facility] 08/17/2022 08:03:33 08/11/19 24597: Therapeutic Exercise completed Cindy Delvalle, PT [address] [place], [address], [facility] 08/10/2022 07:33:11 08/11/19 [address]356: Manual Therapy completed Cindy Delvalle, PT [address] [place], [address], [facility] 08/10/2022 08:46:40 08/04/19 23 75897: Therapeutic Exercise completed Cindy Delvalle, PT [address] [place], [address], [facility] 08/03/2022 08:48:13 08/04/19 23 75642: Manual Therapy completed Cindy Delvalle, PT [address] [place], [address], [facility] 08/03/2022 08:48:15 07/28/19 23 Smoking Cessation Counselling completed Cindy Delvalle, PT [address] [place], [address], [facility] 07/27/2022 07:19:57 07/28/19 23 Physical Activity Counselling completed Cindy Delvalle, PT [address] [place], [address], [facility] 07/27/2022 07:19:57 07/28/19 03561: PT Eval Low Complexity completed Cindy Delvalle, PT [address] [place], [address], [facility] 07/27/2022 07:19:57 07/28/19 Treatment and Advice completed Cindy Delvalle, PT [address] [place], [address], [facility] 07/28/2022 08:28:13 06/27/19 23 Asthma Control Test (12 + years old) completed RACHELLE Laws [facility] 06/26/2022 10:15:51 02/06/20 19 Asthma Control Test (12 + years old) completed Yajaira Arrington CMA [facility] 02/05/2019 08:25:52 01/16/20 19 POC Urinalysis Testing completed Jackie James [facility] 01/15/2019 09:42:14 12/11/19 19 POC Urinalysis Testing completed Lesvia Fernando LPN [facility] 12/10/2018 12:20:33 08/20/19 19 POC hCG Testing completed Ruthie Infante CMA [facility] 08/19/2018 10:07:28 08/20/19 19 IUD Insertion completed Rubens Hopkins MD [address] [place] [address], [address], [facility] 08/22/2018 04:43:25 08/20/19 19 IUD Removal completed Ruthie Infante CMA [facility] 08/19/2018 10:07:26 02/15/20 18 Asthma Control Test (12 + years old) completed Sonu Ibarra [facility] 02/14/2018 08:47:22 11/12/19 14 IUD Insertion completed Lamont Monet MD [address] [place] [address], [address], [facility] 11/12/2013 09:53:02 03/28/19 12 Cholecystectomy completed Lamont Monet MD [address] [place] [address], [address], [facility] 04/01/2011 15:01:33 completed Not Available [facility] 01/11/2011 06:06:16 Imaging Results Imaging Date Name Status LastModified by [facility] Details LastModified Time 11/06/2023 MAMMO, screening completed [email or web address] [address] [place] [address], [address], 01/03/2024 14:22:55 11/20/2023 MAMMO, diagnostic, unilateral completed [email or web address] [facility] [address] [place], [address], 01/03/2024 14:22:55 11/20/2023 US, breast, unilateral completed [email or web address] [facility] [address], [address], 01/03/2024 14:22:55 01/07/2024 US, breast, bilateral, limited completed [email or web address] [facility] [address] [place], [address], 01/09/2024 11:56:49 01/08/2024 US, breast, bilateral, limited completed [email or web address] [facility] [address], [place], [address], 01/09/2024 11:56:49 Procedure Notes None recorded. Medical Equipment None Reported. Allergies Allergen ID Allergen Name Allergen Category Reaction Reaction Severity Criticality Documentation Date Start Date Code Code System Note Provider Name and Address Organization Details Recorded Time 916909 lisinopri l medicatio n rash Not available Not available 12/27/2014 61119 RxNorm Lamont Monet MD [address] [facility], [place], [address], [facility] 5 12:32:49 437626 amlodipin e medicatio n edema moderate Not available 03/04/2019 78410 RxNorm with shoot ing pain Nelly Waddell PA-C [address] [facility], [place], [address], [facility] 0 11:29:10 109392 hydrochlo rothiazid e medicatio n edema Not available Not available 06/03/2020 5487 RxNorm foot pain Yaritza Casper NP [address] [facility], [place], [address], [facility] 1 09:41:38 20802 Compazine medicatio n other mild Not available 04/14/201019616 6 RxNorm neck spasm s Not Available [facility] 06:05:41 46132 Substance with sulfonami de structure and antibacte rial mechanism of action (substanc e) medicatio n rash Not available Not available 04/14/2010 15835 8003 SNOMED Not Available [facility] 06:05:41 Medications Name Sig Start Date [...] Relief 50 mcg/actua tion nasal spray,juan pension [place] 1 spray every day by intranas al [...] /min 98 % 98 % 33.6 kg/m2 36843.8 1 g 132 mm[Hg] 78 mm[Hg] Cathie Sanches [facility] 3 08:02:30 Date Recorded Body height Body mass index (BMI) Body weight Oxygen saturation Oxygen saturation in Arterial blood by Pulse oximetry Heart rate Systolic blood pressure Diastolic blood pressure Provider Name and Address Organization Details Last Updated DateTime 4 156.85 cm 33.6 kg/m2 51991.8 1 g 98 % 98 % 77 /min 130 mm[Hg] 78 mm[Hg] Anastasiya Guardado [facility] 4 08:15:42 Date Recorded Body height Body mass index (BMI) Body weight Heart rate Systolic blood pressure Diastolic blood pressure Provider Name and Address Organization Details Last Updated DateTime 4 156.85 cm 36.8 kg/m2 07614.9 8 g 76 /min 160 mm[Hg] 90 mm[Hg] Marcela Cookuse [facility] 4 15:00:37 Date Recorded Body height Body mass index (BMI) Body weight Oxygen saturation Oxygen saturation in Arterial blood by Pulse oximetry Heart rate Systolic blood pressure Diastolic blood pressure Provider Name and Address Organization Details Last Updated DateTime 4 156.85 cm 36.7 kg/m2 97348.8 8 g 98 % 98 % 83 /min 154 mm[Hg] 90 mm[Hg] Anastasiya Guardado [facility] 4 08:59:16 Date Recorded Body height Heart rate Oxygen saturation Oxygen saturation in Arterial blood by Pulse oximetry Systolic blood pressure Diastolic blood pressure Provider Name and Address Organization Details Last Updated DateTime 5 156.85 cm 84 /min 99 % 99 % 108 mm[Hg] 80 mm[Hg] Uzma Hernandez [facility] 5 15:25:31 Date Recorded Systolic blood pressure Diastolic blood pressure Provider Name and Address Organization Details Last Updated DateTime 10/04/2023 130 mm[Hg] 78 mm[Hg] Forrest Thomas 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 [employer] Information not available 05/06/2024 Have There Been [...] 09:15:40 Notes:no breast CA, colon [place] , [place] Medical History Condition Response Allergic Rhinitis Y [...] virus, trivalent, preservative 2 completed Not Available [facility] 03/14/2019 02:27:39 Tdap 2 completed Not Available [facility] 03/14/2019 02:25:09 Influenza, split virus, quadrivalent, PF 9 completed Not Available [facility] 03/14/2019 02:27:07 COVID-19, mRNA, LNP-S, PF, 100 mcg/0.5mL dose or 50 mcg/0.25mL dose 1 completed Yaritza Casper, ACCOUNTANT CLERK [address] [place] [address], [address], [facility] 06/03/2020 09:38:43 Td (adult), 5 Lf tetanus toxoid, preservative free, adsorbed 3 completed Cathie Sanches Antonio maguire, [facility] 06/26/2022 11:13:12 Influenza, split virus, quadrivalent, preservative 2 completed Rianna Snell [place] ting, [facility] 12/04/2021 08:57:30 Past Encounters Encounter ID Performer Location Encounter Start Date Encounter Closed Date Diagnosis/Indication Diagnosis SNOMED-CT Code Diagnosis ICD10 Code Diagnosis Note [id number] LAB - [facility] [address] 04/01/2008 14:33:54 04/01/2008 14:34:20 [id number] [facility], OFFICE [address] [place] [address] 04/14/2010 08:55:51 04/20/2010 10:17:59 [id number] [facility], OFFICE [address] [place] [id number] 05/12/2010 09:16:37 05/17/2010 12:24:48 [id number] Radiology , [address] [address] 05/18/2010 09:57:10 05/19/2010 11:41:09 [id number] [facility], OFFICE [address] [place] [address] 10/23/2010 11:54:33 10/23/2010 12:53:26 [id number] , [facility], OFFICE [address] [place] [address] 03/10/2011 13:36:24 03/10/2011 14:14:02 [id number] Radiology , [facility] [address] [place] [address] 03/12/2011 14:52:59 03/14/2011 15:02:14 [id number] , [facility], OFFICE [address] [place] [address] 03/20/2011 13:38:36 03/20/2011 14:05:55 [id number] , [facility], OFFICE [address] [place] [facility] [address] 06/14/2011 09:33:05 06/14/2011 10:14:58 [id number] Radiology , [facility] [address] [place] [facility] [address] 07/20/2011 13:00:46 07/24/2011 09:48:19 [id number] [facility], OFFICE [address] [place] [address] 09/26/2011 11:28:11 09/26/2011 12:40:43 [id number] Ana Luisa Malave RN , [facility], OFFICE [address] [place] [address] 12/06/2011 10:47:45 12/06/2011 11:58:38 [id number] NEIDA Delaney, [facility], OFFICE [address] [place] [address] 02/28/2012 08:57:43 02/28/2012 09:14:48 [id number] NEIDA Delaney, [facility], OFFICE [address] [place] [address] 03/25/2012 08:02:36 03/25/2012 08:24:21 [id number] Ana Luisa Malave RN , [facility], OFFICE [address] [place] [address] 06/03/2012 13:59:36 06/03/2012 15:06:19 [id number] NEIDA Delaney, [facility], OFFICE [address] [place] [address] 08/19/2012 11:16:44 08/19/2012 11:47:59 [id number] Ana Luisa Malave RN , [facility], OFFICE [address] [place] [id number] 11/07/2012 09:27:18 11/07/2012 10:43:44 Education [id number] HAN [facility], OFFICE [address] [place] [address] 05/12/2013 11:59:40 05/12/2013 13:00:26 Fatigue [id number] will be seeing sleep med to set up sleep study, check labs Palpitations [id number] se e rec's below Elevated blood-pressure reading without diagnosis of hypertension [id number] pt very anxious today, she will check home BPs and call if >140/90. will be going for sleep study. [id number] Elin SHORT [facility], OFFICE [address] [place] [address] 6 05/20/2013 09:37:22 05/20/2013 10:14:04 Palpitations [id number] stress test neg, so reassured likely not CAD. but ervin check event monitor to assess for arrhythmia . f/u 1mo Essential hypertension 56978956 new, was higher in ED, will strart ACEI for now. w/ weight loss and potentiall y rx for LANA, may be able to wean off. call if side effects., f/u 1mo [id number] Elin SHORT [facility], OFFICE [address] [place] [phone] 6 05/26/2013 10:03:23 05/26/2013 10:56:26 Adult health examination [id number] see Risk Assessment and Lifestyle Change Counseling section above. pt would decline mammo until 48 given no risk fx. Counseling 053224274 Allergic rhinitis 97271959 anti-hist may be triggering palpitatio ns, so switch to singulair Low back pain 576282060 see below Essential hypertension 73000568 very well controlled on very los dose ACEI- will likley be able to d/c w/ weight loss and possibly CPAP if needed Insomnia 127745547 will see sleep med this mo and have sleep study [id number] RACHELLE Shaw , [facility], OFFICE [address] [place] [phone] 6 07/22/2013 10:28:16 07/22/2013 11:16:35 Benign essential hypertension 6617619 Blood pressure at goal, but may have ACEI cough, so switch to HCTZ Asthma 240411067 start inhaled steroid, f/u 1mo, sooner if not improving [id number] Lamont Monet MD , [facility], OFFICE [address] [place] [address] 08/24/2013 13:25:42 08/24/2013 13:59:50 Benign essential hypertension 4617491 Blood pressure at goal off med, so will cont to work on losing weight and cont to monitor BPs. Palpitations 87565337 w/ u was neg, very infrequent now, seems related to GI gas. White bloo d cell count outside reference range 942703276 had repeat drawn this AM. is feeling well Obesity 551415440 has started diet, advised to add exercise [id number] , [facility], OFFICE [address] [place] [address] 11/11/2013 08:53:04 11/11/2013 09:43:45 Venereal disease screening 777715546 Dysmenorrhea 922458819 m mitchell inserted today, f/u 1mo Intrauteri ne contraceptive device procedure [id number] discussed risks, including but not limited to infection, perforatio n, bleeding, expulsion. Pt understand s and agreed to proceed. Also discussed possibilit y of irregular, light, or absent menses. Advised to avoid intercours e for several days, call if heavy bleeding, fever, abd or pelvic pain. Can take ibuprofen prn. Advised that IUD whelan snot protect against STDs. f/u 4-6weeks for string check. [id number] Lesvia Fernando LPN , [facility], OFFICE [address] [place] [address] 12/09/2013 11:34:59 12/09/2013 11:58:53 Sinusitis 20830633 call if no improvemen t after 48h, or if worse at any time Premenstru al dysphoric disorder 445915 has not had menses. NOw has mirena and did not have menses w/ prior mirena so likely will have same pattern. call if sx recur [id number] Kalani Cooley , [facility], OFFICE [address] [place] [phone] 6 05/27/2014 13:28:00 05/27/2014 14:06:15 Sprain of wrist 85192191 Xrays normal in ER. Nothing on exam suggestive of snuffbox fx. Recommenda tions as below. [id number] Lamont Monet MD , [facility], OFFICE [address] [place] [address] 6 06/09/2014 12:51:30 06/09/2014 13:28:34 Benign essential hypertension 7627275 Blood pressure NOT at goal. advised she may be able to get to goal w/ diet and exercise changes leading to wt loss. But during the process of TLC, would be best to conrol BP w/ low dose ACEI. She has taken it in the past and tolerated well. f/u 3mo, sooner prn Sprain of wrist 71561415 advised not to return to her job that requires repetitive wrist motion until sx resolved [id number] Yoko Loya , [facility], OFFICE [address] [place] [phone] 6 08/17/2014 08:27:08 08/17/2014 09:02:03 Upper respiratory infection 67456454 Recommenda tions as below. [id number] Mickie Guadarrama , [facility], OFFICE [address] [place] [address] 12/16/2014 12:02:49 12/23/2014 14:38:12 Upper respiratory infection 48800295 J06.9 nety pot incase this is an early sinius infection, steam, avoid antihistam kt,, call if worse [id number] Lamont Monet MD , [facility], OFFICE [address] [place] [address] 6 12/27/2014 11:14:13 12/27/2014 12:20:53 Adult health examination 439159685 Z00.00 see Risk Assessment and Lifestyle Change Counseling section above Counseling 050412695 Z71 .9 Dysuria 84206228 R30.9 treat while awaiting culture Benign ess ential hypertension 5851610 I10 Blood pressure at goal but ACEI causing rash, so switch to ARB, f/u 1mo Major depr ession, single episode 63397122 F32.0 discussed risk of increase anxiety w/ lexapro given hx of panic w/ prozac but pt willing to try starting at very low dose, f/u 1mo Eruption c aused by drug 06747970 L27.0 d/c ACEI [id number] Rubens Hopkins MD , [facility], OFFICE [address] [place] [address] 01/11/2015 07:39:12 01/11/2015 08:23:17 Bacterial vaginosis 921542866 N76.0 Vaginal discharge 686006 006 N89.8 Tinea cruris 992129249 B 35.6 [id number] Art Meyer MD , [facility], OFFICE [address] [place] [address] 01/29/2015 10:00:00 01/29/2015 10:51:45 Suprapubic pain 409277703 R10.33 Patient presents with suprapubic pressure rather [...] symptoms. Indication s for UC/ER use reviewed. [id number] Nate Benítez MD , [facility], OFFICE [address] [place] [address] 03/28/2015 10:23:15 03/28/2015 11:50:28 Abdominal pain 89053222 R10.10 This upper abdominal pain which has [...] if you still had your gallbladde r. [id number] Daniela SHORT, [facility], OFFICE [address] [place] [address] 08/22/2016 13:08:59 08/22/2016 13:30:56 Foot pain 44600630 M79.671 Metatarsal bone fracture 073855580 S92.301A X-ray demonstrat es fracture at the base of the second metatarsal , well aligned, slightly distracted . Briefly reviewed with Dr. Barry Taveras, recommends walking boot, weightbear ing as tolerated, urgent referral to orthopedic s, may need surgical interventi on. [id number] LOIDA Sihn, [facility], OFFICE [address] [place] [address] 01/10/2017 08:55:17 01/10/2017 09:34:05 Screening for malignant neoplasm of cervix 699797248 Z12.4 pap done today Adult heal th examination 720438234 Z00.00 Sleep apnea 41828592 G47 .30 hx of mild sleep apnea. never on CPAP. no issues since weight loss! Allergic rhinitis 343679 04 J30.9 will start OTC flonase [id number] Kalani SHORT, [facility], OFFICE [address] [place] [address] 01/22/2018 08:46:28 01/22/2018 09:21:15 Adult health examination 498533670 Z00.00 see Risk Assessment and Lifestyle Change Counseling section above Counseling 136222601 Z71 .9 - due for pap. 2017 NILM, +HPV- lipids wnl 2017 Depression screening 171 109474 Z13.89 depression screening tool administer ed, entered into emr, scored and discussed, time greater than 7.5 minutes. negative Screening for malignant neoplasm of cervix 840215813 Z12.4 [facility] 298248332 Z30.9 interested in another Mirena. last put in spring 2013. now noticing more spotting over the last year. will send case to [facility] Sleep apnea 55622127 G47 .30 hx of mild sleep apnea. never on CPAP. no issues since weight loss! [id number] Peter Bal MD , [facility], OFFICE [address] [place] [address] 6 02/14/2018 08:34:41 02/14/2018 09:29:36 Counseling 987160453 Z71.9 Acute uppe r respiratory infection 96710699 J06.9 Cough 68711690 R05 Elevated blood-pressure reading without diagnosis of hypertension 724277204 R03.0 [id number] Peter Bal MD , [facility], OFFICE [address] [place] [address] 06/09/2018 11:29:22 06/09/2018 14:10:57 Acute upper respiratory infection 87185069 J06.9 [id number] Kalani Cooley , [facility], OFFICE [address] [place] [address] 07/16/2018 10:25:27 07/16/2018 11:02:35 Asthma 806120359 J45.909 triggered by allergies- continue jen- start flovent twice a day, rinse mouth after use- albuterol as needed- follow up in 3 weeks, call sooner if breathing worsens Benign ess ential hypertension 5087428 I10 BP not at goal of <130/80. did not tolerate lisinopril or losartan in the past. will start low dose amlodipine and follow up in 3 weeks Pneumonia 492385647 J18. 9 Dx at [facility] in [place] 2 days ago. finish antibiotic s. albuterol as needed [id number] MD HAN Maguire, [facility], OFFICE [address] [place] [address] 08/19/2018 09:58:26 08/19/2018 11:22:35 Removal of intrauterine device 63200850 Z30.432 Insertion of intrauterine contraceptive device 99736757 Z30.430 Contraception care 76368 5005 Z30.40 Benign ess ential hypertension 9807560 I10 [id number] Kalani Cooley , [facility], OFFICE [address] [place] [address] 6 12/10/2018 12:10:27 12/10/2018 14:26:12 Vaginitis 70366202 N76.0 Exam nonspecifi c. Will send cultures and see what they show. Increased frequency of urination 937090952 R35.0 Pelvic discomfort , not frequency, but will r/o UTI. [id number] Rubens Hopkins MD , [facility], OFFICE [address] [place] [address] 6 01/15/2019 09:24:18 01/15/2019 10:22:56 Hypertensive disorder 88330201 I10 Trying lifestyle changes-li sinopril(c ough), losartan(f eet and legs swelled), HCTZ (stopped because of concern about sulf)- Discussed trying the amlodipine and f/u in a few weeks.Med risks and side effects reviewed. Backache 899423127 M54.9 Tylenol , massage, heat.Can consider PTWill see chiropract or. Right flank pain 8278785 09 R10.9 U/A reassuring , improved from last visit. Can check culture.No CVA symptoms. No fevers.Thi s likely muscular since it is reproducib le with movement. Can consider imaging if symptoms persist or worsen and she is encouraged to return if this happens. [id number] Nate Benítez MD , [facility], OFFICE [address] [place] [phone] 6 02/05/2019 10:52:00 02/05/2019 11:31:40 Hypertensive disorder 61374485 I10 BP not at goal of <130/80 with amlodipine 2.5mg daily. will increase to 5mg daily- work on low salt/neisha josephine diet- continue regular physical activity- follow up at BP clinic in 2-3 weeks. bring BP readings did not tolerate lisinopril or losartan in the past. did not take hctz for c/o sulfa allergy Active or passive immunization 089544988 Z23 flu vaccine today Screening for malignant neoplasm of colon 311167711 Z12.11 discussed. 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 declines colo, will do ifobtx2 annually Foot pain 38863472 M79.6 71 started November/2019 when walking a lot. already scheduled with podiatry on [facility]. Naproxen twice a day with food for 1-2 weeks. ice 20-30 minutes at a time. Essential hypertension 34798774 I10 asymptomat ic. she has not tolerated a number of BP meds. She has not checked her BP in a while. She will check over the next week and report to the portal. BP goal is <130/<80. Also due for labs. She will schedule. continue working on balanced/l ow salt diet and regular physical activity Obesity 911259858 E66.9 interested in nutrition. will send referral [id number] Meaghan Day NP , [facility], OFFICE [address] [place] [address] 06/05/2022 17:01:20 06/05/2022 17:32:33 Screening for malignant neoplasm of colon 379636907 Z12.11 Patient declining colonoscop y.Provided FOBT. Pain of le ft shoulder joint 5695679849 2516096 M25.512 Likely RC tendinitis .No weakness or injury to suggest tear.Recom mend PT - pt agreeable. x-ray to check for arthritis/ bone abnormalit ies.Rx: voltaren gelDiscuss ed if symptoms not improving with topical we can try a prednisone burst next.Patie nt will contact us and let us know. Hypertensive disorder 38 304052 I10 Is not taking any medication s. States she does not do well on them.BP elevated in clinic - states she usually has elevated BP due to nerves in clinic.F/U for annual physical and recheck BP then. [id number] Antonina Seay PA-C , [facility], OFFICE [address] [place] [address] 06/26/2022 10:06:57 06/26/2022 16:56:04 Adult health examination 234262952 Z00.00 Depression screening 171 486756 Z13.31 depression screening tool administer ed Screening for alcohol abuse 386662482 Z13.39 Alcohol use screening tool administer ed Essential hypertension 88026115 I10 BP is elevated today, has been [...] and continue the good work! Sleep apnea 25856338 G47 .30 Was tested for it, mild/borde rline. Does not use c-pap. No issues. 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 Not had one since.Woul d like to refer to vascular to discuss again. 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 Perform left sidelying without shoulder pain. Halfway Goals:In 8 weeks, patient will:1. Demonstrat e [...] (initiated ), manual therapy PRN, modalities PRN. [id number] Cindy Delvalle, PT Physical Therapy, [address] [address] 08/03/2022 07:28:39 08/03/2022 10:10:58 Pain of left shoulder joint 2366345987 5008085 M25.135 [id number] Cindy Delvalle, PT Physical Therapy, [address] [address] 08/10/2022 07:29:32 08/10/2022 08:53:39 Pain of left shoulder joint 9230734175 5115425 M25.672 [id number] Cindy Delvalle, PT Physical Therapy, [address] [address] 08/17/2022 07:57:53 08/17/2022 09:16:19 Pain of left shoulder joint 4020799548 9861248 M25.577 [id number] Antonina Seay PA-C , [facility], OFFICE [address] [place] [address] 08/29/2022 07:54:13 08/29/2022 12:19:36 Skin tag 734337302 L91.8 Pulled it off clean/comp letely about [...] (cryothera py) or by shaving them off. [id number] ALEX PACHECO DO , [facility], OFF[address] [place] [address] 12/24/2023 08:07:23 12/28/2023 12:14:38 Hyperlipidemia screening 257151201 Z13.220 Check lipids, advised to follow a heart healthy diet and; increase exercise. Anxiety state 103818581 F41.1 s2/2 new cancer dx.Reports significan t stress and anxiety related to recent cancer diagnosis and potential impact on work and financial stability. Previous trial of Lexapro resulted in panic attacks. -Initiate low-dose Sertraline and monitor for tolerance and efficacy. -Refer to in-house psychologi st and therapists for additional support. Hypertensive disorder 38 617353 I10 Hypertensi onStable blood pressure readings around 130/70. Previous trials of antihypert ensive medication s resulted in adverse effects including leg swelling, neuropathy , and rash.-Cont inue monitoring blood pressure. [id number] Sameera Mcmahan MD , [facility], OFF[address] [place] [address] 01/17/2024 14:50:23 01/17/2024 15:20:20 Hypertensive disorder 00471238 I10 start dlitiazem 120 dailykeep followup with PCP in a few weekscall if concernsbr ing home BP cuff to next visit to calibratep t agrees with plans [id number] ALEX PACHECO DO , [facility], [address] [place] [address] 02/12/2024 08:51:43 02/13/2024 18:07:44 Hypertensive disorder 76403645 I10 Hypertensi onStable blood pressure readings around 130/70. Previous trials of antihypert ensive medication s resulted in adverse effects including leg swelling, neuropathy , and rash.-Cont inue monitoring blood pressure. Anxiety 54683370 F41.9 Discussed most effective treatment options to include daily preventati ve medication and/or treatment strategies from behavioral health specialist . Reinforced that this is a normal physiologi c response that is being triggered at abnormal times. Reviewed concept of as needed medication s for anxiety symptoms. [id number] ALEX PACHECO DO , [facility], OFF[address] [place] [address] 05/06/2024 15:01:08 05/13/2024 08:40:43 Malignant tumor of breast 806619843 C50.012 History of left breast invasive ductal carcinoma, ER positive, MO positive, HER2 negative, and invasive lobular carcinoma. Post-bilat eral mastectomy with no lymph node involvemen t. Awaiting oncologist consultati on for chemothera py or hormone therapy decision. 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 Hypertensive disorder 38 182160 I10 Stable blood pressure readings around 130/70. Previous trials of antihypert ensive medication s resulted in adverse effects including leg swelling, neuropathy , and rash.-Cont inue monitoring blood pressure. Anxiety 15876984 F41.9 Discussed most effective treatment options to include daily preventati ve medication and/or treatment strategies from behavioral health specialist . Reinforced that this is a normal physiologi c response that is being triggered at abnormal times. Reviewed concept of as needed medication s for anxiety symptoms. Varicose v eins of lower extremity 68955208 I83.93 Varicose Veins with SwellingEx perienced leg [...] Member ID Sunshine Member ID Guarantor Name 08/29/2022 1 [facility]) Alexia Ellington [id number] Alexia Ellington 12/24/2023 1 [facility]) Alexia Ellington [id number] Alexia Ellington 01/17/2024 1 [facility]) Alexia Ellington [id number] Alexia Ellington 02/12/2024 1 [facility] Alexia Ellington [id number] Alexia Ellington 05/06/2024 1 [facility] Alexia Ellington [id number] Alexia Ellington Notes Date Note Type [...] to bra strap. Antonina Jacobson jd, PA-C [address] [place] [address], [phone], [facility] 08/29/2022 08:19:38 12/24/2023 text/html 12/24/23- Pt her [...] slightly elevated triglycerides. ALEX PACHECO DO [address] [place], [address], [facility] 12/26/2023 08:13:43 01/17/2024 text/html pt presents to tomas piña BP. Recent dx breast cancer. At apts, BP always high. Has cuff at home, but very old. Read 200/?. No CP, SOB Sameera Mcmahan MD [address] [place], [address], [facility] 01/17/2024 15:21:45 02/12/2024 text/html 02/12/24- Pt her [...] initially a lumpectomy. ALEX PACHECO DO [address] [place], [address], [facility] 02/12/2024 13:12:16 05/06/2024 text/html 3 mon f/u per PC [...] plan, which was initially a lumpectomy. ALEX PACHECO, [address], [place], [address], [facility] 05/12/2024 14:13:06 OBGyn Episode No OBEpisode recorded.
--- OUTSIDE RECORDS SUMMARY | 2024-05-14 08:20 | XMS_ITS | Data Portability ---
Author Organization [facility], , [facility], OFFICE Address [address] [place] [address] Care Team Providers Care Tool Crib Manager Name Role Phone ALEX PACHECO Primary Care Provider Assessment Encounter Date Assessment Date Assessment LastModified by Organization Details LastModified Time 12/24/2023 12/24/2023 Final Diagnosis: Breast, Left, upper inner quadrant, 7 cm from nipple, ultrasound guided core needle biopsy (Ribbon clip): - Invasive ductal carcinoma, grade 1. A. Histologic [place] score (tubule formation score: 2; nuclear pleomorphism [...] was transferred to the Specialists at the [facility] [place]. An appointment was made for consultation with [...] and I agree with this report. WSN: [id number] Ordering Physician: Raysa Noriega Dictated By: Dorinda Ann NP Dictated Date/Time: 12/20/23 2:32 pm Reviewed By: Rox Mosquera MD Signed By: Rox Mosquera MD Signed Date/Time: 12/20/23 2:37 pm Transcribed By: ALIYA Rock Dust Sprayer Date/Time: 12/20/23 1:33 pm Birads: Assessment & Plan Breast Cancer Recently diagnosed, awaiting further details on marker testing and treatment plan. Lymph node biopsy scheduled for next week. -Coordinate care with oncology team at [facility]. -Review results from [facility] once received. Hypertriglyceridemia Slightly elevated triglycerides noted [...] Organization Details Last Modified Time Details [facility]ointments [facility] NEW 2024 11:00A M Briana Macedo, Screen Tender Helper Not available Not available Not available Follow Up, 15 2024 08:15A M ALEX PACHECO, DO Not available Not available Not available Lab CMP, serum or plasma 2023 024 [facility], [address] [place] [address], [address], 04/30/2024 10:55:20 TSH, serum or plasma 2023 024 [facility], [address] [place] [address], [address], 04/30/2024 14:10:33 HbA1c (hemoglob in A1c), blood 2023 024 [facility], [address] [place] [address], [id number], 04/29/2024 14:37:32 lipid panel, serum 2023 024 [facility], [address] [place] [address], [address], 04/30/2024 10:55:21 [facility] - Recent diagnosis of breast cancer. Patient strugglin g emotional ly and agreeable to therapy referral to help cope with new diagnosis and continue working. 2023 [email or web address] [facility] ([facility]), [address] [place] [address], [address], 12/26/2023 08:57:20 Procedures None recorded. Surgeries None recorded. Imaging None recorded. Medication Orders doxazosin 2 mg tablet 2023 024 [place] [address] [id number], [address] [place], [address], 05/06/2024 15:19:06 citalopra m 10 mg tablet 2023 024 [place] [address] [facility], [address] [place], [address], 05/06/2024 15:18:42 diltiazem CD 120 mg capsule,e xtended release 24 hr 2023 024 [place] [facility], [address] [place], [address], 01/17/2024 15:20:11 sertralin e 25 mg tablet 2023 [place] [address] [facility], [address] [place], [address], 05/06/2024 15:20:45 Patient TargetsNo targets recorded. Patient [...] Abnormal Flag Note LastModifiedBy Organization Detail LastModifiedTime 04/30/19 25 04/29/2024 HGB A1C hemoglobin A1C 5.5 % 4.8-6. [...] furth er confi rmati on Not Available [address], [address], 04/29/2024 14:37:32 04/30/19 25 04/29/2024 HGB A1C estimated average glucose 111.2 mg/dL Not Available [address], [address], 04/29/2024 14:37:32 04/30/19 25 04/30/2024 COMP. METAB OLIC PANEL glucose 105 mg/dL 70-100 high Not Available [address], [address], 04/30/2024 10:55:20 04/30/19 25 04/30/2024 COMP. METAB OLIC PANEL BUN 14 mg/dL 7-18 Not Available [address], [address], 04/30/2024 10:55:20 04/30/19 25 04/30/2024 COMP. METAB OLIC PANEL creatinine 0.7 mg/dL 0.8-1. 3 low Not Available [address], [address], 04/30/2024 10:55:20 04/30/19 25 04/30/2024 COMP. METAB OLIC PANEL B/C 20.0 ratio Not Available [address], [address], 04/30/2024 10:55:20 04/30/19 25 04/30/2024 COMP. METAB [...] be used in pregn jannette. Not Available [address], [address], 04/30/2024 10:55:20 04/30/19 25 04/30/2024 COMP. METAB OLIC PANEL sodium 140 mmol/ L 136-14 5 Not Available [address], [address], 04/30/2024 10:55:20 04/30/19 25 04/30/2024 COMP. METAB OLIC PANEL potassium 4.3 mmol/ L 3.5-5. 1 Not Available [address], [address], 04/30/2024 10:55:20 04/30/19 25 04/30/2024 COMP. METAB OLIC PANEL chloride 102 mmol/ L 96-107 Not Available [address], [address], 04/30/2024 10:55:20 04/30/19 25 04/30/2024 COMP. METAB OLIC PANEL anion gap 11.2 5.0-15 .0 Not Available [address], [address], 04/30/2024 10:55:20 04/30/19 25 04/30/2024 COMP. METAB OLIC PANEL CO2 27 mmol/ L 21-32 Not Available [address], [address], 04/30/2024 10:55:20 04/30/19 25 04/30/2024 COMP. METAB OLIC PANEL calcium 9.5 mg/dL 8.5-10 .3 Not Available [address], [address], 04/30/2024 10:55:20 04/30/19 25 04/30/2024 COMP. METAB OLIC PANEL total protein 7.4 g/dL 6.4-8. 2 Not Available [address], [address], 04/30/2024 10:55:20 04/30/19 25 04/30/2024 COMP. METAB OLIC PANEL albumin 3.8 g/dL 3.4-5. 0 Not Available [address], [address], 04/30/2024 10:55:20 04/30/19 25 04/30/2024 COMP. METAB OLIC PANEL globulin 3.6 g/dL Not Available [address], [address], 04/30/2024 10:55:20 04/30/19 25 04/30/2024 COMP. METAB OLIC PANEL A/G 1.1 ratio 0.8-2. 0 Not Available [address], [address], 04/30/2024 10:55:20 04/30/19 25 04/30/2024 COMP. METAB OLIC PANEL total bilirubin 0.40 mg/dL 0.00-1 .00 Not Available [address], [address], 04/30/2024 10:55:20 04/30/19 25 04/30/2024 COMP. METAB OLIC PANEL AST 14 U/L 0-37 Not Available [address], [address], 04/30/2024 10:55:20 04/30/19 25 04/30/2024 COMP. METAB OLIC PANEL ALT 28 U/L 6-63 Not Available [address], [address], 04/30/2024 10:55:20 04/30/19 25 04/30/2024 COMP. METAB OLIC PANEL alk. phos. 122 U/L 50-136 Not Available [address], [address], 04/30/2024 10:55:20 04/30/19 25 04/30/2024 LIPID PANEL cholesterol 252 mg/dL <200 mg/dl Day able 200-2 39 mg/dl Borde rline High >240 mg/dl High Not Available [address], [address], 04/30/2024 10:55:21 04/30/19 25 04/30/2024 LIPID PANEL triglyceride s 229 mg/dL <150 mg/dL Anuja l 150-1 99 mg/dL Borde rline High 200-4 99 mg/dL High >500 mg/dL Very High Not Available [address], [address], 04/30/2024 10:55:21 04/30/19 25 04/30/2024 LIPID PANEL direct HDL 51 mg/dL <40 mg/dl - Major Risk for CHD >60 mg/dl - Negat joshua Risk for CHD Not Available [address], [address], 04/30/2024 10:55:21 04/30/19 25 04/30/2024 LDL - [...] r is not neces reed. Not Available [address], [address], 04/30/2024 10:55:22 0304/30/2024 TSH TSH 1.41 uIU/m L 0.50-6 .00 The Ameri can Colle ge of Endoc rinol ogy and Nayana can Thyro id Assoc iatio n recom mend goal TSH value s shariwe en 0.4-4 .0 mIU/m L. Not Available [facility] [address] [facility], [place], [address], 04/30/2024 14:10:33 11/29/19 24 11/06/2023 MAMMO , scree princess No observ ation record ed. [email or web address] [facility] [address] [place], [address], 01/03/2024 14:22:55 11/29/19 24 11/20/2023 MAMMO , diagn ostic , unila teral No observ ation record ed. [email or web address] [place] [address] [facility] [address] [place], [address], 01/03/2024 14:22:55 11/29/19 24 11/20/2023 US, breas t, unila teral No observ ation record ed. [email or web address] [place] [address] [facility] [address] [place], [address], 01/03/2024 14:22:55 01/07/20 24 01/07/2024 US, breas t, bilat eral, limit ed No observ ation record ed. [email or web address] [facility] [place] [address] [place], [address], 01/09/2024 11:56:49 01/08/20 24 01/08/2024 US, breas t, bilat eral, limit ed No observ ation record ed. [email or web address] [place] [address] [facility] [place] [address] [place], [address], 01/09/2024 11:56:49 Result Notes None recorded. Procedures Surgical History Date Name Laterality Status Provider Name and Address Organization Details Recorded Time 3 Donell - Colonoscopy completed Naet Marley MD [address] [place] [address], [id number], [facility] 07/19/2022 09:00:56 Imaging Results Imaging Date Name Status LastModified by Organiz ation Details LastModified Time 11/06/2023 MAMMO, screening completed [email or web address] [facility] [address] [place], [address], 01/03/2024 14:22:55 11/20/2023 MAMMO, diagnostic, unilateral completed [email or web address] [facility] [address] [place], [address], 01/03/2024 14:22:55 11/20/2023 US, breast, unilateral completed [email or web address] [facility] [address] [place], [address], 01/03/2024 14:22:55 01/07/2024 US, breast, bilateral, limited completed [email or web address] [facility] [address] [place], [address], 01/09/2024 11:56:49 01/08/2024 US, breast, bilateral, limited completed [email or web address] [facility] [address] [place], [address], 01/09/2024 11:56:49 Procedure Notes None recorded. Medical Equipment None Reported. Allergies Allergen ID Allergen Name Allergen Category Reaction Reaction Severity Criticality Documentation Date Start Date Code Code System Note Provider Name and Address Organization Details Recorded Time 332958 Compazine medicatio n other Not available Not available 07/16/202272393 6 RxNorm facia l spasm Anai Sanches RN null, [facility] 16:35:04 Medications Name Sig Start Date Stop [...] Relief 50 mcg/actua tion nasal spray,juan pension [place] 1 spray every day by intranas al [...] LastModified by Organizat ion Details LastModified Time Do You Wear A Helmet When Biking? 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 [employer] Information not available 05/06/2024 Have There Been [...] SNOMED-CT Code Diagnosis ICD10 Code Diagnosis Note [id number] [facility] [address] [place] [address] 04/01/2008 14:33:54 04/01/2008 14:34:20 [id number] , [facility], OFFICE [address] [place] [address] 04/14/2010 08:55:51 04/20/2010 10:17:59 [id number] , [facility], OFFICE [address] [facility] [place] [facility] [address] 05/12/2010 09:16:37 05/17/2010 12:24:48 [id number] Radiology , C [address] [facility] [place] [facility] [address] 05/18/2010 09:57:10 05/19/2010 11:41:09 [id number] FP, [facility], OFFICE [address] [facility] [place] [facility] [address] 10/23/2010 11:54:33 10/23/2010 12:53:26 [id number] , [facility], OFFICE [address] [place] [address] 03/10/2011 13:36:24 03/10/2011 14:14:02 [id number] Radiology , [facility] [address] [place] [address] 03/12/2011 14:52:59 03/14/2011 15:02:14 [id number] , [facility], OFFICE [address] [facility] [place] [facility] [address] 03/20/2011 13:38:36 03/20/2011 14:05:55 [id number] , [facility], OFFICE [address] [facility] [place] [facility] [address] 06/14/2011 09:33:05 06/14/2011 10:14:58 [id number] Radiology , [facility] [address] [facility] [place] [facility] [address] 07/20/2011 13:00:46 07/24/2011 09:48:19 [id number] , [facility], OFFICE [address] [facility] [place] [facility] [address] 09/26/2011 11:28:11 09/26/2011 12:40:43 [id number] Ana Luisa Malave RN FP, C, OFFICE [address] [facility] [place] [facility] [place] [address] 12/06/2011 10:47:45 12/06/2011 11:58:38 [id number] NEIDA Delaney, C, OFFICE [address] [facility] [place] [facility] [place] [address] 02/28/2012 08:57:43 02/28/2012 09:14:48 [id number] Ana Luisa Malave RN FP, [facility], OFFICE [address] [place] [facility] [place] [address] 03/25/2012 08:02:36 03/25/2012 08:24:21 [id number] Ana Luisa Malave RN FP, [facility], OFFICE [address] [place] [facility] [place] [address] 06/03/2012 13:59:36 06/03/2012 15:06:19 [id number] Ana Luisa Malave RN FP, C, OFFICE [address] [place] [facility] [place] [address] 08/19/2012 11:16:44 08/19/2012 11:47:59 [id number] Ana Luisa Malave RN FP, [facility], OFFICE [address] [place] [facility] [place] [address] 11/07/2012 09:27:18 11/07/2012 10:43:44 [id number] HAN, [facility], OFFICE [address] [place] [facility] [place] [address] 05/12/2013 11:59:40 05/12/2013 13:00:26 [id number] Elin SHORT [facility], OFFICE [address] [place] [facility] [place] [address] 05/20/2013 09:37:22 05/20/2013 10:14:04 [id number] Elin SHORT, [facility], OFFICE [address] [place] [facility] [place] [address] 05/26/2013 10:03:23 05/26/2013 10:56:26 [id number] RACHELLE Shaw, C, OFFICE [address] [place] [facility] [place] [address] 07/22/2013 10:28:16 07/22/2013 11:16:35 [id number] MD HAN Hoffman, C, OFFICE [address] [place] [facility] [place] [address] 08/24/2013 13:25:42 08/24/2013 13:59:50 [id number] HAN, C, OFFICE [address] [facility] [place] [address] 11/11/2013 08:53:04 11/11/2013 09:43:45 [id number] Lesvia Fernando LPN , [facility], OFFICE [address] [facility] [place] [facility] [place] [address] 12/09/2013 11:34:59 12/09/2013 11:58:53 [id number] Kalani Cooley , [facility], OFFICE [address] [facility] [place] [facility] [address] 05/27/2014 13:28:00 05/27/2014 14:06:15 [id number] Lamont Monet MD , [facility], OFFICE [address] [place] [address] on [facility] [address] 06/09/2014 12:51:30 06/09/2014 13:28:34 [id number] Yoko Loya , [facility], OFFICE [address] [place] [address] on [facility] [address] 08/17/2014 08:27:08 08/17/2014 09:02:03 [id number] Mickie Guadarrama , [facility], [address]ICE [address] [place] [address] 12/16/2014 12:02:49 12/23/2014 14:38:12 [id number] Lamont Monet MD , [facility], OFFICE [address] [place] [address] [place] [address] 12/27/2014 11:14:13 12/27/2014 12:20:53 [id number] Rubens Hopkins MD , [facility], OFFICE [address] [place] [address] on [facility] [place] [address] 01/11/2015 07:39:12 01/11/2015 08:23:17 [id number] Art Meyer MD , [facility], OFFICE [address] [place] [address] 01/29/2015 10:00:00 01/29/2015 10:51:45 [id number] MD HAN Murillo, [facility], OFFICE [address] [facility] [place] [address] 03/28/2015 10:23:15 03/28/2015 11:50:28 [id number] Daniela Arthur , [facility], OFFICE [address] [place] [facility] [place] [address] 08/22/2016 13:08:59 08/22/2016 13:30:56 [id number] Yaritza Casper NP , [facility], OFFICE [address] [facility] [place] [facility] [address] 01/10/2017 08:55:17 01/10/2017 09:34:05 [id number] Kalani Cooley , [facility], OFFICE [address] [place] [facility] [place] [address] 01/22/2018 08:46:28 01/22/2018 09:21:15 [id number] MD HAN Moe, [facility], OFFICE [address] [facility] [place] [facility] [address] 02/14/2018 08:34:41 02/14/2018 09:29:36 [id number] MD HAN Moe, [facility], OFFICE [address] [facility] [place] [facility] [address] 06/09/2018 11:29:22 06/09/2018 14:10:57 [id number] Kalani SHORT, [facility], OFFICE [address] [facility] [place] [facility] [address] 07/16/2018 10:25:27 07/16/2018 11:02:35 [id number] MD HAN Maguire, [facility], OFFICE [address] [facility] [place] [facility] [address] 08/19/2018 09:58:26 08/19/2018 11:22:35 [id number] Kalani SHORT, [facility], OFFICE [address] [facility] [place] [facility] [place] [address] 12/10/2018 12:10:27 12/10/2018 14:26:12 [id number] MD HAN Maguire, [facility], OFFICE [address] [facility] [place] [facility] [address] 01/15/2019 09:24:18 01/15/2019 10:22:56 [id number] MD HAN Murillo, [facility], OFFICE [address] [facility] [place] [address] 02/05/2019 10:52:00 02/05/2019 11:31:40 [id number] Kalani Cooley , [facility], OFFICE [address] [place] [address] 03/04/2019 10:50:29 03/05/2019 11:43:52 [id number] Yaritza Casper, LOIDA FP, [facility], OFFICE [address] [place] [address] 06/03/2020 09:11:21 06/08/2020 13:50:18 [id number] Meaghan Day NP , [facility], OFFICE [address] [place] [address] 06/05/2022 17:01:20 06/05/2022 17:32:33 [id number] JOSI Mckeon, [facility], OFFICE [address] [place] [address] 06/26/2022 10:06:57 06/26/2022 16:56:04 [id number] Adry Antonio RN Endoscopy , [address] [address] 07/19/2022 07:51:18 07/19/2022 13:06:42 [id number] Cindy Delvalle, PT Physical Therapy, [address] [address] 07/27/2022 07:19:58 07/30/2022 08:18:29 [id number] Cindy Delvalle, PT Physical Therapy, [address] [address] 08/03/2022 07:28:39 08/03/2022 10:10:58 [id number] Cindy Delvalle, PT Physical Therapy, [address] [address] 08/10/2022 07:29:32 08/10/2022 08:53:39 [id number] Cindy Delvalle PT Physical Therapy, [address] [address] 08/17/2022 07:57:53 08/17/2022 09:16:19 [id number] Antonina Seay PA-C , [facility], OFFICE [address] [place] [address] 08/29/2022 07:54:13 08/29/2022 12:19:36 [id number] ALEX PACHECO DO , [facility], OFFICE [address] [place] [address] 12/24/2023 08:07:23 12/28/2023 12:14:38 [id number] Sameera Mcmahan MD , [facility], OFFICE [address] [place] [address] 01/17/2024 14:50:23 01/17/2024 15:20:20 [id number] DO HAN RODRIGUEZ, [facility], OFFICE [address] [place] [address] 02/12/2024 08:51:43 02/13/2024 18:07:44 [id number] DO HAN RODRIGUEZ, [facility], OFFICE [address] [place] [address] 05/06/2024 15:01:08 05/13/2024 08:40:43 Health Concerns Section Related Observation LastModified by Organization Detai ls LastModified Time None Recorded Concern Status LastModified by Organization Details LastModified Time None Recorded Advance Directives Directive None Recorded Payers Encounter Date Sequence Insurance Name Policy Number Policy Sunshine Covered Member ID Sunshine Member ID Guarantor Name 08/29/2022 1 [facility]) Alexia Ellington [id number] Alexia Ellington 12/24/2023 1 [facility] Alexia Ellington [id number] Alexia Ellington 01/17/2024 1 [facility] Alexia Ellington [id number] Alexia Ellington 02/12/2024 1 [facility]) Alexia Ellington [id number] Alexia Ellington 05/06/2024 1 [facility]) Alexia Ellington [id number] Alexia Ellington OBGyn Episode No OBEpisode recorded.
== END 2024-05-14 08:12 | disposition home or self-care (01) ==
LOC: HO.US 08:11
PROVIDERS: PCP Internal Medicine Nephrology; Visit Provider Physician Assistant Surgical
DX: I83.11 Varicose veins of right lower extremity with inflammation (principal); I83.12 Varicose veins of left lower extremity with inflammation
CPT/HCPCS: 93970

== ENCOUNTER → 2024-05-14 08:12 | Outpatient (BNV) | payer OTHER, SELFPAY | PROVIDERS: PCP Internal Medicine Nephrology; Visit Provider Radiology Diagnostic Radiology | DX: I83.893 Varicose veins of bilateral lower extremities with other complications (principal) | CPT/HCPCS: 93970 ==

== ENCOUNTER 2024-06-16 08:50 | Outpatient (AMB) | payer OTHER, SELFPAY ==
[2024-06-16 09:00] VITALS: BMI 34.7
--- NOTE | 2024-06-16 09:00 | A.OFFVIS_ITS ---
Vital Signs 06/16/24 09:00 Height 5 ft 2 in Weight 190 lb BMI 34.7 Intake Visit Reasons: Follow up 05/14 US Intake Note: follow up US 05/14/24 s/p Right LE thrombophlebitiss/p double mastectomy 03/25/24, Hx of DVT & PE in 2006. Pt states leg is feeling much better and is no longer on eliquis. Legal Compliance Officer Required: No Accompanied by: Self / Same As Patient Allergies prochlorperazine [From Compazine] Allergy (Verified 06/16/24 09:04) Involuntary Spasms Sulfa (Sulfonamide Antibiotics) Allergy (Verified 06/16/24 09:04) Rash nuts Allergy (Intermediate, Uncoded 06/16/24 09:04) Itching HPI HPI Follow up 05/14 US: Details: The patient is a 53-year-old female presenting with venous insufficiency for follow-up. She initially presented in January 2024 after experiencing superficial thrombophlebitis and carries a history of pulmonary embolism from 2006. Currently, she experiences more significant symptoms in the right leg, such as discomfort and swelling after prolonged sitting. She is currently awaiting reconstructive breast surgery for breast cancer status post mastectomy. Now for routine follow-up with venous insufficiency testing. [facility] Medical History Pulmonary embolus Varicose vein of leg Breast cancer Social History Patient Tobacco Use Status: Never used Tobacco Review of Systems Const Reports as per HPI ENT Reports no additional complaints Card Denies chest pain, Denies chest pain at rest and Denies chest pain with activity Resp Denies chest congestion and Denies cough GI Reports no additional complaints Musc Details: pain over varicosities, aching of lower extremities, swelling, cramping, heaviness and tiredness, itching Denies abnormal gait Skin/Breast Reports pruritus and Denies wounds Neuro Reports no additional complaints and Denies abnormal gait Psych Denies no additional complaints Physical Exam Vital Signs: BMI result Body Mass Index 34.7 Const General: cooperative, healthy appearing and comfortable Orientation/consciousness: oriented to person, oriented to place and oriented to time Neck Carotids: no bruits Chest Chest palpation & inspection: normal inspection of the chest and normal palpation of entire chest wall Resp Effort & Inspection: normal respiratory effort and able to speak in complete sentences Cardio Rate: regular rate Heart sounds: S1 normal heart sound present and S2 normal heart sound present Peripheral pulses: Peripheral pulses 2+ throughout GI Inspection: Yes normal to inspection Skin Other: +2 edema, large rope-like varicosities greater than 4 mm right lateral calf CEAP Classification C4 - skin color changes Ep - Etiology Primary As - superficial veins P - reflux General skin exam: dry skin Neuro General: oriented to person, oriented to place and oriented to time Extrem Right lower extremity: full ROM, normal capillary refill and edema Left lower extremity: full ROM, normal capillary refill and edema Psych Mental Status: mental status grossly normal Results Reviewed Results Reviewed: Brief summary of venous insufficiency testing is as follows: right great saphenous vein: negative right small saphenous vein: negative right accessory vein: none present left great saphenous vein: Positive left small saphenous vein: negative left accessory vein: none present Please note there is no evidence of any venous aneurysms or significant tortuosity Assessment & Plan Assessment & Plan (1) Varicose veins of right lower extremity with inflammation: Code(s): I83.11 - Varicose veins of right lower extremity with inflammation Category: Medical Plan: This patient has varicose veins with inflammation. They continue to be a source of discomfort for the patient. The patient has tried conservative treatment with compression, leg elevation and exercise program for over 3 months time. They have been compliant with all treatment. This has provided minimal relief for the patient. I do not anticipate this course of treatment will alter the underlying etiology. The patient has been scheduled for lower extremity venous treatment inclusive of --- right lower extremity microphlebectomy. Risks, benefits, and complications of this procedure has been discussed in detail with the patient including but not limited to bleeding, infection, and the development of a DVT. The patient has demonstrated a clear understanding and has consented. We will schedule the patient as soon as possible. Thank you for allowing us to participate in this patient's care. If there are any questio ns or concerns please do not hesitate to contact us. Coding Level of Care Code Est Pt Level 4 (80675) Diagnoses Varicose veins of right lower extremity with inflammation I83.11
--- OUTSIDE RECORDS SUMMARY | 2024-06-16 09:17 | XMS_ITS | Data Portability ---
Author Organization [facility], [facility] Address [address] [place] [address] Care Team Providers Care Shop Steward Name Role Phone ALEX PACHECO Primary Care Provider [phone] Assessment Encounter Date Assessment Date Assessment LastModified [...] was transferred to the Specialists at the [facility] [place]. An appointment was made for consultation with [...] and I agree with this report. WSN: [id number] Ordering Physician: Raysa Noriega Dictated By: Doirnda Ann NP Dictated Date/Time: 12/20/23 2:32 pm Reviewed By: Rox Mosquera MD Signed By: Rox Mosquera MD Signed Date/Time: 12/20/23 2:37 pm Transcribed By: ALIYA Hull Outfit Supervisor Date/Time: 12/20/23 1:33 pm Birads: Assessment & Plan Breast Cancer Recently diagnosed, awaiting further details on marker testing and treatment plan. Lymph node biopsy scheduled for next week. -Coordinate care with oncology team at [facility]. -Review results from [facility] once received. Hypertriglyceridemia Slightly elevated triglycerides [...] Organization Details Last Modified Time Details [facility]ments [facility] [employer] VIRTUAL NEW 2024 11:00A M Briana Macedo, Web Press Operator Assistant Not available Not available Not available Follow Up, 15 2024 08:15A M ALEX PACHECO, DO Not available Not available Not available Lab CMP, serum or plasma 2023 024 [facility], [address] [place] [address], [address], 04/30/2024 10:55:20 TSH, serum or plasma 2023 024 [facility], [address] [place] [address], [address], 04/30/2024 14:10:33 HbA1c (hemoglob in A1c), blood 2023 024 [facility], [address] [place] [address], [address], 04/29/2024 14:37:32 lipid panel, serum 2023 024 [facility], [address] [place] [address], [address], 04/30/2024 10:55:21 [facility] - Recent diagnosis of breast cancer. Patient strugglin g emotional ly and agreeable to therapy referral to help cope with new diagnosis and continue working. 2023 024 [email or web address] [address] [place] [address], [address], 12/26/2023 08:57:20 Procedures None recorded. Surgeries None recorded. Imaging None recorded. Medication Orders doxazosin 2 mg tablet 2023 024 [place] [address] [facility], [address] [place], [address], 05/06/2024 15:19:06 citalopra m 10 mg tablet 2023 024 [place] [address] [facility], [address] [place], [address], 05/06/2024 15:18:42 diltiazem CD 120 mg capsule,e xtended release 24 hr 2023 024 [place] [facility], [address] [place], [address], 01/17/2024 15:20:11 sertralin e 25 mg tablet 2023 [place] [address] [facility], [address] [place], [address], 05/06/2024 15:20:45 Patient TargetsNo targets recorded. Patient [...] furth er confi rmati on Not Available [address], [address], 04/29/2024 14:37:32 04/30/19 25 04/29/2024 HGB A1C estimated average glucose 111.2 mg/dL Not Available [address], [address], 04/29/2024 14:37:32 04/30/19 25 04/30/2024 COMP. METAB OLIC PANEL glucose 105 mg/dL 70-100 high Not Available [address], [address], 04/30/2024 10:55:20 04/30/19 25 04/30/2024 COMP. METAB OLIC PANEL BUN 14 mg/dL 7-18 Not Available [address], [address], 04/30/2024 10:55:20 04/30/19 25 04/30/2024 COMP. METAB OLIC PANEL creatinine 0.7 mg/dL 0.8-1. 3 low Not Available [address], [address], 04/30/2024 10:55:20 04/30/19 25 04/30/2024 COMP. METAB OLIC PANEL B/C 20.0 ratio Not Available [address], [address], 04/30/2024 10:55:20 04/30/19 25 04/30/2024 COMP. METAB [...] be used in pregn jannette. Not Available [address], [address], 04/30/2024 10:55:20 04/30/19 25 04/30/2024 COMP. METAB OLIC PANEL sodium 140 mmol/ L 136-14 5 Not Available [address], [address], 04/30/2024 10:55:20 04/30/19 25 04/30/2024 COMP. METAB OLIC PANEL potassium 4.3 mmol/ L 3.5-5. 1 Not Available [address], [address], 04/30/2024 10:55:20 04/30/19 25 04/30/2024 COMP. METAB OLIC PANEL chloride 102 mmol/ L 96-107 Not Available [address], [address], 04/30/2024 10:55:20 04/30/19 25 04/30/2024 COMP. METAB OLIC PANEL anion gap 11.2 5.0-15 .0 Not Available [address], [address], 04/30/2024 10:55:20 04/30/19 25 04/30/2024 COMP. METAB OLIC PANEL CO2 27 mmol/ L 21-32 Not Available [address], [address], 04/30/2024 10:55:20 04/30/19 25 04/30/2024 COMP. METAB OLIC PANEL calcium 9.5 mg/dL 8.5-10 .3 Not Available [address], [address], 04/30/2024 10:55:20 04/30/19 25 04/30/2024 COMP. METAB OLIC PANEL total protein 7.4 g/dL 6.4-8. 2 Not Available [address], [address], 04/30/2024 10:55:20 04/30/19 25 04/30/2024 COMP. METAB OLIC PANEL albumin 3.8 g/dL 3.4-5. 0 Not Available [address], [address], 04/30/2024 10:55:20 04/30/19 25 04/30/2024 COMP. METAB OLIC PANEL globulin 3.6 g/dL Not Available [address], [address], 04/30/2024 10:55:20 04/30/19 25 04/30/2024 COMP. METAB OLIC PANEL A/G 1.1 ratio 0.8-2. 0 Not Available [address], [address], 04/30/2024 10:55:20 04/30/19 25 04/30/2024 COMP. METAB OLIC PANEL total bilirubin 0.40 mg/dL 0.00-1 .00 Not Available [address], [address], 04/30/2024 10:55:20 04/30/19 25 04/30/2024 COMP. METAB OLIC PANEL AST 14 U/L 0-37 Not Available [address], [address], 04/30/2024 10:55:20 04/30/19 25 04/30/2024 COMP. METAB OLIC PANEL ALT 28 U/L 6-63 Not Available [address], [address], 04/30/2024 10:55:20 04/30/19 25 04/30/2024 COMP. METAB OLIC PANEL alk. phos. 122 U/L 50-136 Not Available [address], [address], 04/30/2024 10:55:20 04/30/19 25 04/30/2024 LIPID PANEL cholesterol 252 mg/dL <200 mg/dl Day able 200-2 39 mg/dl Borde rline High >240 mg/dl High Not Available [address], [address], 04/30/2024 10:55:21 04/30/19 25 04/30/2024 LIPID PANEL triglyceride s 229 mg/dL <150 mg/dL Anuja l 150-1 99 mg/dL Borde rline High 200-4 99 mg/dL High >500 mg/dL Very High Not Available [address], [address], 04/30/2024 10:55:21 04/30/19 25 04/30/2024 LIPID PANEL direct HDL 51 mg/dL <40 mg/dl - Major Risk for CHD >60 mg/dl - Negat joshua Risk for CHD Not Available [address], [address], 04/30/2024 10:55:21 04/30/19 25 04/30/2024 LDL - [...] r is not neces reed. Not Available [address], [address], 04/30/2024 10:55:22 03/0504/30/2024 TSH TSH 1.41 uIU/m L 0.50-6 .00 The Ameri can Colle ge of Endoc rinol ogy and Ameri can Thyro id Assoc iatio n recom mend goal TSH value s betwe en 0.4-4 .0 mIU/m L. Not Available [facility] [address] [facility], [place], [address], 04/30/2024 14:10:33 11/29/19 24 11/06/2023 MAMMO , scree princess No observ ation record ed. [email or web address] [facility] [address] [place], [address], 01/03/2024 14:22:55 11/29/19 24 11/20/2023 MAMMO , diagn ostic , unila teral No observ ation record ed. [email or web address] [facility] [address] [place], [address], 01/03/2024 14:22:55 11/29/19 24 11/20/2023 US, breas t, unila teral No observ ation record ed. [facility] [place] [address] [facility] [address] [place], [address], 01/03/2024 14:22:55 01/07/20 24 01/07/2024 US, breas t, bilat eral, limit ed No observ ation record ed. [email or web address] [facility] [address] [place], [address], 01/09/2024 11:56:49 01/08/20 24 01/08/2024 US, breas t, bilat eral, limit ed No observ ation record ed. [email or web address] [place] [address] [facility] [address] [place], [address], 01/09/2024 11:56:49 Result Notes None recorded. Problems Name Problem SNOMED Code Status Onset Date Resolution Date Notes Provider Name and Address Organization Details Recorded Time Sleep apnea 70218576 Active Zehra Mckinnon MD [address] [place], [place] [address]reynaldo marin, JASPAL, [address], [facility] 6 11:27:34 Herpes simplex 24363242 Active 2017 Yaritza Casper, LOIDA [address] [place] [address] Amy marin, JASPAL, [address], [facility] 8 09:00:33 Asthma 714004068 Active 2018 Yaritza Casper, LOIDA [address] [place], [place] [address]raffy marin, JASPAL, [address], [facility] 9 10:51:56 Hyperten sive disorder 46424716 Active 2018 Yaritza Casper NP [address] [place], [place] [address]reynaldo marin, JASPAL, [address], [facility] 9 11:06:11 Obesity 717099179 Completed 201311/30/2021 ISABELLE Orr, [facility] 2 12:08:08 Morbid obesity 700650829 Active 2021 BMI > or = 35 plus diagnosis of HTN. 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 Zehra Mckinnon MD [address] [place], [place] [address]Amy, JASP[place], [address], [facility] 6 11:27:34 Dysuria 14500443 Completed 04/01/2011 Zehra Mckinnon MD [address] [place] [address] [place], [address], [facility] 6 11:27:34 Acute upper respirat ory infectio n 69842033 Completed 04/01/2011 Zehra Mckinnon MD [address] [place] [address] [place], [address], [facility] 6 11:27:34 Influenz a 5232065 Completed 04/01/2011 Zehra Mckinnon MD [address] [place] [address] [place], [address], [facility] 6 11:27:34 Abdomina l pain 44364059 Completed 200804/01/2011 Zehra Mckinnon MD [address] [place] [address] [place], [address], [facility] 6 11:27:34 Urinary tract infectio us disease 84419091 Completed 04/01/2011 Zehra Mckinnon MD [address] [place] [address] [place], [address], [facility] 6 11:27:34 Problem Notes None recorded. Procedures Surgical History Date Name Laterality Status Provider Name and Address Organization Details Recorded Time 08/18/19 47942: Therapeutic Exercise completed Cindy Delvalle, PT [address] [facility] [place], [address], [facility] 08/17/2022 08:03:33 08/18/19 01004: Manual Therapy completed Cindy Delvalle, PT [address] [facility] [place], [address], [facility] 08/17/2022 08:03:33 08/11/19 [address]991: Therapeutic Exercise completed Cindy Delvalle, PT [address] [facility] [place], [address], [facility] 08/10/2022 07:33:11 08/11/19 07317: Manual Therapy completed Cindy Delvalle, PT [address] [place], [address], [facility] 08/10/2022 08:46:40 08/04/19 23 40292: Therapeutic Exercise completed Cindy Delvalle, PT [address] [place], [address], [facility] 08/03/2022 08:48:13 08/04/19 23 07165: Manual Therapy completed Cindy Delvalle, PT [address] [place], [address], [facility] 08/03/2022 08:48:15 07/28/19 23 Smoking Cessation Counselling completed Cindy Delvalle, PT [address] [place], [address], [facility] 07/27/2022 07:19:57 07/28/19 23 Physical Activity Counselling completed Cindy Delvalle, PT [address] [place], [address], [facility] 07/27/2022 07:19:57 07/28/19 42624: PT Eval Low Complexity completed Cindy Delvalle, PT [address] [place], [address], [facility] 07/27/2022 07:19:57 07/28/19 Treatment and Advice completed Cindy Delvalle, PT [address] [place], [address], [facility] 07/28/2022 08:28:13 06/27/19 23 Asthma Control Test (12 + years old) completed RACHELLE Laws [facility] 06/26/2022 10:15:51 02/06/20 19 Asthma Control Test (12 + years old) completed Yajaira Arrington CMA [facility] 02/05/2019 08:25:52 01/16/20 19 POC Urinalysis Testing completed Jackie James [facility] 01/15/2019 09:42:14 12/11/19 19 POC Urinalysis Testing completed Lesvia Fernando LPN [facility] 12/10/2018 12:20:33 08/20/19 19 POC hCG Testing completed Ruthie Infante CMA [facility] 08/19/2018 10:07:28 08/20/19 19 IUD Insertion completed Rubens Hopkins MD [address] [place] [address], [address], [facility] 08/22/2018 04:43:25 08/20/19 19 IUD Removal completed Ruthie Infante CMA [facility] 08/19/2018 10:07:26 02/15/20 18 Asthma Control Test (12 + years old) completed Sonu Ibarra [facility] 02/14/2018 08:47:22 11/12/19 14 IUD Insertion completed Lamont Monet MD [address] [place] [address], [address], [facility] 11/12/2013 09:53:02 03/28/19 12 Cholecystectomy completed Lamont Monet MD [address] [place] [address], [address], [facility] 04/01/2011 15:01:33 completed Not Available [facility] 01/11/2011 06:06:16 Imaging Results Imaging Date Name Status LastModified by Organiz [facility] Details LastModified Time 11/06/2023 MAMMO, screening [facility] [address] [place] [address], [address], 01/03/2024 14:22:55 11/20/2023 MAMMO, diagnostic, unilateral completed [email or web address] [facility] [address] [place], [address], 01/03/2024 14:22:55 11/20/2023 US, breast, unilateral completed [email or web address] [facility] [address], [place], [address], 01/03/2024 14:22:55 01/07/2024 US, breast, bilateral, limited completed [email or web address] [facility] [address] [place], [address], 01/09/2024 11:56:49 01/08/2024 US, breast, bilateral, limited completed [email or web address] [facility] [address], [place], [address], 01/09/2024 11:56:49 Procedure Notes None recorded. Medical Equipment None Reported. Allergies Allergen ID Allergen Name Allergen Category Reaction Reaction Severity Criticality Documentation Date Start Date Code Code System Note Provider Name and Address Organization Details Recorded Time 290099 lisinopri l medicatio n rash Not available Not available 12/27/2014 67615 RxNorm Lamont Monet MD [address] [facility], [place], [address], [facility] 5 12:32:49 111286 amlodipin e medicatio n edema moderate Not available 03/04/2019 80820 RxNorm with shoot ing pain Nelly Waddell PA-C [address] [facility], [place], [address], [facility] 0 11:29:10 763670 hydrochlo rothiazid e medicatio n edema Not available Not available 06/03/2020 5487 RxNorm foot pain Yaritza Casper NP [address] [facility], [place], [address], [facility] 1 09:41:38 13202 Compazine medicatio n other mild Not available 04/14/201086477 6 RxNorm neck spasm s Not Available [facility] 06:05:41 89567 Substance with sulfonami de structure and antibacte rial mechanism of action (substanc e) medicatio n rash Not available Not available 04/14/2010 77907 8003 SNOMED Not Available [facility] 06:05:41 Medications Name Sig Start Date [...] Relief 50 mcg/actua tion nasal spray,juan pension [place] 1 spray every day by intranas al [...] /min 98 % 98 % 33.6 kg/m2 17335.8 1 g 132 mm[Hg] 78 mm[Hg] Cathie Sanches [facility] 3 08:02:30 Date Recorded Body height Body mass index (BMI) Body weight Oxygen saturation Oxygen saturation in Arterial blood by Pulse oximetry Heart rate Systolic blood pressure Diastolic blood pressure Provider Name and Address Organization Details Last Updated DateTime 4 156.85 cm 33.6 kg/m2 82211.8 1 g 98 % 98 % 77 /min 130 mm[Hg] 78 mm[Hg] Anastasiya Guardado [facility] 4 08:15:42 Date Recorded Body height Body mass index (BMI) Body weight Heart rate Systolic blood pressure Diastolic blood pressure Provider Name and Address Organization Details Last Updated DateTime 4 156.85 cm 36.8 kg/m2 00806.9 8 g 76 /min 160 mm[Hg] 90 mm[Hg] Marcela Cookuse [facility] 4 15:00:37 Date Recorded Body height Body mass index (BMI) Body weight Oxygen saturation Oxygen saturation in Arterial blood by Pulse oximetry Heart rate Systolic blood pressure Diastolic blood pressure Provider Name and Address Organization Details Last Updated DateTime 4 156.85 cm 36.7 kg/m2 68976.8 8 g 98 % 98 % 83 /min 154 mm[Hg] 90 mm[Hg] Anastasiya Guardado [facility] 4 08:59:16 Date Recorded Body height Heart rate Oxygen saturation Oxygen saturation in Arterial blood by Pulse oximetry Systolic blood pressure Diastolic blood pressure Provider Name and Address Organization Details Last Updated DateTime 5 156.85 cm 84 /min 99 % 99 % 108 mm[Hg] 80 mm[Hg] Uzma Hernandez [facility] 5 15:25:31 Date Recorded Systolic blood pressure Diastolic blood pressure Provider Name and Address Organization Details Last Updated DateTime 10/04/2023 130 mm[Hg] 78 mm[Hg] Forrest Thomas [facility] 10/04/2023 11:09:33 Social History Question Answer Notes LastModified by Organizat ion Details LastModified Time Tobacco Smoking Status Former Smoker quit age 17yo Lamont Monet MD [address] [place] [address], [address], [facility] [...] not available 01/10/2017 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 [employer] Information not available 05/06/2024 Have There Been [...] 09:15:40 Notes:no breast CA, colon CA , [place] Medical History Condition Response Allergic Rhinitis Y [...] trivalent, preservative 2 completed Not Available [facility] 03/14/2019 02:27:39 Tdap 2 completed Not Available [facility] 03/14/2019 02:25:09 Influenza, split virus, quadrivalent, PF 9 completed Not Available [facility] 03/14/2019 02:27:07 COVID-19, mRNA, LNP-S, PF, 100 mcg/0.5mL dose or 50 mcg/0.25mL dose 1 completed Yaritza Casper, TRAILER SECTIONS ASSEMBLER [address] [place] [address], [address], [facility] 06/03/2020 09:38:43 Td (adult), 5 Lf tetanus toxoid, preservative free, adsorbed 3 completed Cathie Sanches Antonio maguire, [facility] 06/26/2022 11:13:12 Influenza, split virus, quadrivalent, preservative 2 completed Rianna Snell SC ting, [facility] 12/04/2021 08:57:30 Past Encounters Encounter ID Performer Location Encounter Start Date Encounter Closed Date Diagnosis/Indication Diagnosis SNOMED-CT Code Diagnosis ICD10 Code Diagnosis Note [id number] LAB - [facility] [address] 04/01/2008 14:33:54 04/01/2008 14:34:20 [id number] [facility], OFFICE [address] [place] [phone] 04/14/2010 08:55:51 04/20/2010 10:17:59 [id number] [facility], OFFICE [address] [place] [address] 05/12/2010 09:16:37 05/17/2010 12:24:48 [id number] Radiology , [address] [address] 05/18/2010 09:57:10 05/19/2010 11:41:09 [id number] [facility], OFFICE [address] [place] [phone] 10/23/2010 11:54:33 10/23/2010 12:53:26 [id number] , [facility], OFFICE [address] [place] [address] 03/10/2011 13:36:24 03/10/2011 14:14:02 [id number] Radiology , [facility] [address] [place] [address] 03/12/2011 14:52:59 03/14/2011 15:02:14 [id number] , [facility], OFFICE [address] [place] [address] 03/20/2011 13:38:36 03/20/2011 14:05:55 [id number] , [facility], OFFICE [address] [place] [facility] [place] [address] 06/14/2011 09:33:05 06/14/2011 10:14:58 [id number] Radiology , [facility] [address] [place] [address] 07/20/2011 13:00:46 07/24/2011 09:48:19 [id number] [facility], OFFICE [address] [place] [address] 09/26/2011 11:28:11 09/26/2011 12:40:43 [id number] Ana Luisa Malave RN , [facility], OFFICE [address] [place] [address] 12/06/2011 10:47:45 12/06/2011 11:58:38 [id number] NEIDA Delaney, [facility], OFFICE [address] [place] [address] 02/28/2012 08:57:43 02/28/2012 09:14:48 [id number] NEIDA Delaney, [facility], OFFICE [address] [place] [address] 03/25/2012 08:02:36 03/25/2012 08:24:21 [id number] Ana Luisa Malave RN , [facility], OFFICE [address] [place] [address] 06/03/2012 13:59:36 06/03/2012 15:06:19 [id number] NEIDA Delaney, [facility], OFFICE [address] [place] [address] 08/19/2012 11:16:44 08/19/2012 11:47:59 [id number] Ana Luisa Malave RN , [facility], OFFICE [address] [place] [address] 11/07/2012 09:27:18 11/07/2012 10:43:44 Education [id number] HAN [facility], OFFICE [address] [place] [address] 05/12/2013 11:59:40 05/12/2013 13:00:26 Fatigue 49719659 will be seeing sleep med to set up sleep study, check labs Palpitations 28729022 se e rec's below Elevated blood-pressure reading without diagnosis of hypertension 127443970 pt very anxious today, she will check home BPs and call if >140/90. will be going for sleep study. [id number] Elin SHORT [facility], OFFICE [address] [place] [phone] 05/20/2013 09:37:22 05/20/2013 10:14:04 Palpitations 96595299 stress test neg, so reassured likely not CAD. but ervin check event monitor to assess for arrhythmia . f/u 1mo Essential hypertension 43632985 new, was higher in ED, will strart ACEI for now. w/ weight loss and potentiall y rx for LANA, may be able to wean off. call if side effects., f/u 1mo [id number] Elin SHORT [facility], OFFICE [address] [place] [phone] 05/26/2013 10:03:23 05/26/2013 10:56:26 Adult health examination 366004708 see Risk Assessment and Lifestyle Change Counseling section above. pt would decline mammo until 48 given no risk fx. Counseling 405901181 Allergic rhinitis 71559639 anti-hist may be triggering palpitatio ns, so switch to singulair Low back pain 450757318 see below Essential hypertension 17357205 very well controlled on very los dose ACEI- will likley be able to d/c w/ weight loss and possibly CPAP if needed Insomnia 236319275 will see sleep med this mo and have sleep study [id number] RACHELLE Shaw , [facility], OFFICE [address] [place] [phone] 07/22/2013 10:28:16 07/22/2013 11:16:35 Benign essential hypertension 2343897 Blood pressure at goal, but may have ACEI cough, so switch to HCTZ Asthma 218572028 start inhaled steroid, f/u 1mo, sooner if not improving [id number] Lamont Monet MD , [facility], OFFICE [address] [place] [address] 08/24/2013 13:25:42 08/24/2013 13:59:50 Benign essential hypertension 4379394 Blood pressure at goal off med, so will cont to work on losing weight and cont to monitor BPs. Palpitations [id number] w/ u was neg, very infrequent now, seems related to GI gas. White bloo d cell count outside reference range [id number] had repeat drawn this AM. is feeling well Obesity 378733289 has started diet, advised to add exercise [id number] , [facility], OFF[address] [place] [address] 11/11/2013 08:53:04 11/11/2013 09:43:45 Venereal disease screening [id number] Dysmenorrhea 733769682 m mitchell inserted today, f/u 1mo Intrauteri ne contraceptive device procedure [id number] discussed risks, including but not limited to infection, perforatio n, bleeding, expulsion. Pt understand s and agreed to proceed. Also discussed possibilit y of irregular, light, or absent menses. Advised to avoid intercours e for several days, call if heavy bleeding, fever, abd or pelvic pain. Can take ibuprofen prn. Advised that IUD whelan snot protect against STDs. f/u 4-6weeks for string check. [id number] Lesvia Fernando LPN , [facility], [address] [place] [address] 12/09/2013 11:34:59 12/09/2013 11:58:53 Sinusitis 31049349 call if no improvemen t after 48h, or if worse at any time Premenstru al dysphoric disorder 237083 has not had menses. NOw has mirena and did not have menses w/ prior mirena so likely will have same pattern. call if sx recur [id number] Kalani Cooley , [facility], OFFICE [address] [place] [phone] 05/27/2014 13:28:00 05/27/2014 14:06:15 Sprain of wrist 04785405 Xrays normal in ER. Nothing on exam suggestive of snuffbox fx. Recommenda tions as below. [id number] Lamont Monet MD , [facility], OFFICE [address] [place] [address] 06/09/2014 12:51:30 06/09/2014 13:28:34 Benign essential hypertension 9968597 Blood pressure NOT at goal. advised she may be able to get to goal w/ diet and exercise changes leading to wt loss. But during the process of TLC, would be best to conrol BP w/ low dose ACEI. She has taken it in the past and tolerated well. f/u 3mo, sooner prn Sprain of wrist 98288679 advised not to return to her job that requires repetitive wrist motion until sx resolved [id number] Yoko Loya , [facility], OFFICE [address] [place] [phone] 08/17/2014 08:27:08 08/17/2014 09:02:03 Upper respiratory infection 33071871 Recommenda tions as below. [id number] Mickie Guadarrama , [facility], [address] [place] [address] 12/16/2014 12:02:49 12/23/2014 14:38:12 Upper respiratory infection 59512110 J06.9 nety pot incase this is an early sinius infection, steam, avoid antihistam kt,, call if worse [id number] Lamont Monet MD , [facility], OFFICE [address] [place] [phone] 12/27/2014 11:14:13 12/27/2014 12:20:53 Adult health examination 060198939 Z00.00 see Risk Assessment and Lifestyle Change Counseling section above Counseling 582191519 Z71 .9 Dysuria 10992320 R30.9 treat while awaiting culture Benign ess ential hypertension 1565316 I10 Blood pressure at goal but ACEI causing rash, so switch to ARB, f/u 1mo Major depr ession, single episode 23211096 F32.0 discussed risk of increase anxiety w/ lexapro given hx of panic w/ prozac but pt willing to try starting at very low dose, f/u 1mo Eruption c aused by drug 94800302 L27.0 d/c ACEI [id number] Rubens Hopkins MD , [facility], [address] [place] [address] 01/11/2015 07:39:12 01/11/2015 08:23:17 Bacterial vaginosis 838306305 N76.0 Vaginal discharge 934412 006 N89.8 Tinea cruris 859749961 B 35.6 [id number] Art Meyer MD , [facility], [address] [place] [address] 01/29/2015 10:00:00 01/29/2015 10:51:45 Suprapubic pain 583296460 R10.33 Patient presents with suprapubic pressure rather [...] symptoms. Indication s for UC/ER use reviewed. [id number] Nate Benítez MD , [facility], [address] [place] [address] 03/28/2015 10:23:15 03/28/2015 11:50:28 Abdominal pain 76711323 R10.10 This upper abdominal pain which has [...] if you still had your gallbladde r. [id number] Daniela SHORT, [facility], [address] [place] [address] 08/22/2016 13:08:59 08/22/2016 13:30:56 Foot pain 91875676 M79.671 Metatarsal bone fracture 162915586 S92.301A X-ray demonstrat es fracture at the base of the second metatarsal , well aligned, slightly distracted . Briefly reviewed with Dr. Barry Taveras, recommends walking boot, weightbear ing as tolerated, urgent referral to orthopedic s, may need surgical interventi on. [id number] LOIDA Shin, [facility], [address] [place] [address] 01/10/2017 08:55:17 01/10/2017 09:34:05 Screening for malignant neoplasm of cervix 239833905 Z12.4 pap done today Adult heal th examination 603279391 Z00.00 Sleep apnea 42329958 G47 .30 hx of mild sleep apnea. never on CPAP. no issues since weight loss! Allergic rhinitis 004952 04 J30.9 will start OTC flonase [id number] Kalani SHORT, [facility], [address] [place] [address] 01/22/2018 08:46:28 01/22/2018 09:21:15 Adult health examination 875697747 Z00.00 see Risk Assessment and Lifestyle Change Counseling section above Counseling 450002203 Z71 .9 - due for pap. 2017 NILM, +HPV- lipids wnl 2017 Depression screening 171 808302 Z13.89 depression screening tool administer ed, entered into emr, scored and discussed, time greater than 7.5 minutes. negative Screening for malignant neoplasm of cervix 362371488 Z12.4 [facility] 678364865 Z30.9 interested in another Mirena. last put in spring 2013. now noticing more spotting over the last year. will send case to [facility] Sleep apnea 07205778 G47 .30 hx of mild sleep apnea. never on CPAP. no issues since weight loss! [id number] Peter Bal MD , [facility], OFFICE [address] [place] [address] 02/14/2018 08:34:41 02/14/2018 09:29:36 Counseling 402875347 Z71.9 Acute uppe r respiratory infection 64861908 J06.9 Cough 07905716 R05 Elevated blood-pressure reading without diagnosis of hypertension 028489601 R03.0 [id number] Peter Bal MD , [facility], [address] [place] [address] 06/09/2018 11:29:22 06/09/2018 14:10:57 Acute upper respiratory infection 86132902 J06.9 [id number] Kalani Cooley , [facility], [address] [place] [address] 07/16/2018 10:25:27 07/16/2018 11:02:35 Asthma 882335035 J45.909 triggered by allergies- continue jen- start flovent twice a day, rinse mouth after use- albuterol as needed- follow up in 3 weeks, call sooner if breathing worsens Benign ess ential hypertension 7194580 I10 BP not at goal of <130/80. did not tolerate lisinopril or losartan in the past. will start low dose amlodipine and follow up in 3 weeks Pneumonia 387417811 J18. 9 Dx at [facility] in [place] 2 days ago. finish antibiotic s. albuterol as needed [id number] MD HAN Maguire, [facility], OFF[address] [place] [address] 08/19/2018 09:58:26 08/19/2018 11:22:35 Removal of intrauterine device 52105906 Z30.432 Insertion of intrauterine contraceptive device 65023630 Z30.430 Contraception care 47249 5005 Z30.40 Benign ess ential hypertension 7145362 I10 [id number] Kalani Cooley , [facility], OFFICE [address] [place] [phone] 12/10/2018 12:10:27 12/10/2018 14:26:12 Vaginitis 22522518 N76.0 Exam nonspecifi c. Will send cultures and see what they show. Increased frequency of urination 282842401 R35.0 Pelvic discomfort , not frequency, but will r/o UTI. [id number] Rubens Hopkins MD , [facility], OFFICE [address] [place] [address] 01/15/2019 09:24:18 01/15/2019 10:22:56 Hypertensive disorder 20000365 I10 Trying lifestyle changes-li sinopril(c ough), losartan(f eet and legs swelled), HCTZ (stopped because of concern about sulf)- Discussed trying the amlodipine and f/u in a few weeks.Med risks and side effects reviewed. Backache 558100784 M54.9 Tylenol , massage, heat.Can consider PTWill see chiropract or. Right flank pain 5241546 09 R10.9 U/A reassuring , improved from last visit. Can check culture.No CVA symptoms. No fevers.Thi s likely muscular since it is reproducib le with movement. Can consider imaging if symptoms persist or worsen and she is encouraged to return if this happens. [id number] Nate Benítez MD , [facility], OFFICE [address] [place] [address] 02/05/2019 10:52:00 02/05/2019 11:31:40 Hypertensive disorder 92807838 I10 BP not at goal of <130/80 with amlodipine 2.5mg daily. will increase to 5mg daily- work on low salt/neisha josephine diet- continue regular physical activity- follow up at BP clinic in 2-3 weeks. bring BP readings did not tolerate lisinopril or losartan in the past. did not take hctz for c/o sulfa allergy Active or passive immunization 637165557 Z23 flu vaccine today Screening for malignant neoplasm of colon 114629961 Z12.11 discussed. 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 declines colo, will do ifobtx2 annually Foot pain 42790703 M79.6 71 started November/2019 when walking a lot. already scheduled with podiatry on [facility] [place] [facility]. Naproxen twice a day with food for 1-2 weeks. ice 20-30 minutes at a time. Essential hypertension 00574429 I10 asymptomat ic. she has not tolerated a number of BP meds. She has not checked her BP in a while. She will check over the next week and report to the portal. BP goal is <130/<80. Also due for labs. She will schedule. continue working on balanced/l ow salt diet and regular physical activity Obesity 631856704 E66.9 interested in nutrition. will send referral [id number] Meaghan Day NP , [facility], [address] [place] [address] 06/05/2022 17:01:20 06/05/2022 17:32:33 Screening for malignant neoplasm of colon 757663801 Z12.11 Patient declining colonoscop y.Provided FOBT. Pain of le ft shoulder joint 3439547188 0233599 M25.512 Likely RC tendinitis .No weakness or injury to suggest tear.Recom mend PT - pt agreeable. x-ray to check for arthritis/ bone abnormalit ies.Rx: voltaren gelDiscuss ed if symptoms not improving with topical we can try a prednisone burst next.Patie nt will contact us and let us know. Hypertensive disorder 38 608992 I10 Is not taking any medication s. States she does not do well on them.BP elevated in clinic - states she usually has elevated BP due to nerves in clinic.F/U for annual physical and recheck BP then. [id number] Antonina Seay PA-C , [facility], [address] [place] [address] 06/26/2022 10:06:57 06/26/2022 16:56:04 Adult health examination 615460879 Z00.00 Depression screening 171 814569 Z13.31 depression screening tool administer ed Screening for alcohol abuse 052964200 Z13.39 Alcohol use screening tool administer ed Essential hypertension 48223664 I10 BP is elevated today, has been [...] and continue the good work! Sleep apnea 42802136 G47 .30 Was tested for it, mild/borde rline. Does not use c-pap. No issues. 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 Not had one since.Woul d like to refer to vascular to discuss again. [id number] Adry Atnonio, citizen participation specialist , [address] [address] 07/19/2022 07:51:18 07/19/2022 13:06:42 [id number] Cindy Delvalle, PT Physical Therapy, [address] [address] 07/27/2022 07:19:58 07/30/2022 08:18:29 Pain of left shoulder joint 1422652319 9910139 M25.512 Patient is a 51-year old {{female* [...] pain.2. Perform left sidelying without shoulder pain. Care Home Goals:In 8 weeks, patient will:1. Demonstrat e [...] (initiated ), manual therapy PRN, modalities PRN. [id number] Cindy Delvalle, PT Physical Therapy, [address] [address] 08/03/2022 07:28:39 08/03/2022 10:10:58 Pain of left shoulder joint 4768944684 5163338 M25.571 [id number] Cindy Delvalle, PT Physical Therapy, [address] [address] 08/10/2022 07:29:32 08/10/2022 08:53:39 Pain of left shoulder joint 7173115735 2876828 M25.682 [id number] Cindy Delvalle, PT Physical Therapy, [address] [address] 08/17/2022 07:57:53 08/17/2022 09:16:19 Pain of left shoulder joint 0981090605 [id number] M25.690 [id number] Antonina Seay PA-C , [facility], [address] [place] [address] 08/29/2022 07:54:13 08/29/2022 12:19:36 Skin tag 209095317 L91.8 Pulled it off clean/comp letely about [...] (cryothera py) or by shaving them off. [id number] ALEX PACHECO DO , [facility], [address] [place] [address] 12/24/2023 08:07:23 12/28/2023 12:14:38 Hyperlipidemia screening 612986175 Z13.220 Check lipids, advised to follow a heart healthy diet and; increase exercise. Anxiety state 969383316 F41.1 s2/2 new cancer dx.Reports significan t stress and anxiety related to recent cancer diagnosis and potential impact on work and financial stability. Previous trial of Lexapro resulted in panic attacks. -Initiate low-dose Sertraline and monitor for tolerance and efficacy. -Refer to in-house psychologi st and therapists for additional support. Hypertensive disorder 38 586828 I10 Hypertensi onStable blood pressure readings around 130/70. Previous trials of antihypert ensive medication s resulted in adverse effects including leg swelling, neuropathy , and rash.-Cont inue monitoring blood pressure. [id number] Sameera Mcmahan MD , [facility], [address] [place] [address] 01/17/2024 14:50:23 01/17/2024 15:20:20 Hypertensive disorder 34870214 I10 start dlitiazem 120 dailykeep followup with PCP in a few weekscall if concernsbr ing home BP cuff to next visit to calibratep t agrees with plans [id number] ALEX PACHECO DO , [facility], [address] [place] [address] 02/12/2024 08:51:43 02/13/2024 18:07:44 Hypertensive disorder 67052605 I10 Hypertensi onStable blood pressure readings around 130/70. Previous trials of antihypert ensive medication s resulted in adverse effects including leg swelling, neuropathy , and rash.-Cont inue monitoring blood pressure. Anxiety 58336735 F41.9 Discussed most effective treatment options to include daily preventati ve medication and/or treatment strategies from behavioral health specialist . Reinforced that this is a normal physiologi c response that is being triggered at abnormal times. Reviewed concept of as needed medication s for anxiety symptoms. [id number] ALEX PACHECO DO , [facility], [address] [place] [address] 05/06/2024 15:01:08 05/13/2024 08:40:43 Malignant tumor of breast 006003216 C50.012 History of left breast invasive ductal carcinoma, ER positive, [place] positive, HER2 negative, and invasive lobular carcinoma. Post-bilat eral mastectomy with no lymph node involvemen t. Awaiting oncologist consultati on for chemothera py or hormone therapy decision. No radiation planned.- Continue follow-up with plastic surgeon for tissue bottle caser management .- Attend appointmen t with medical oncologist next month to discuss further treatment options. Hypertensive disorder 38 860925 I10 Stable blood pressure readings around 130/70. Previous trials of antihypert ensive medication s resulted in adverse effects including leg swelling, neuropathy , and rash.-Cont inue monitoring blood pressure. Anxiety 30304129 F41.9 Discussed most effective treatment options to include daily preventati ve medication and/or treatment strategies from behavioral health specialist . Reinforced that this is a normal physiologi c response that is being triggered at abnormal times. Reviewed concept of as needed medication s for anxiety symptoms. Varicose v eins of lower extremity 98932591 I83.93 Varicose Veins with SwellingEx perienced leg [...] Sunshine Member ID Guarantor Name 08/29/2022 1 [facility]) Alexia Ellington [id number] 0 Alexia Ellington 12/24/2023 1 [facility]) Alexia Ellington [id number] Alexia Ellington 01/17/2024 1 [facility]) Alexia Ellington [id number] Alexia Ellington 02/12/2024 1 [facility] Alexia Ellington [id number] 0 Alexia Ellington 05/06/2024 1 [facility] Alexia Ellington [id number] Alexia Ellington Notes Date Note Type [...] to bra strap. Antonina Jacobson jd, PA-C [address] [place] [address], [phone], [facility] [...] slightly elevated triglycerides. ALEX PACHECO DO [address] [place], [address], [facility] 12/26/2023 08:13:43 01/17/2024 text/html pt presents to tomas piña BP. Recent dx breast cancer. At apts, BP always high. Has cuff at home, but very old. Read 200/?. No CP, SOB Sameera Mcmahan MD [address] [place], [address], [facility] [...] initially a lumpectomy. ALEX PACHECO DO [address] [place], [address], [facility] [...] which was initially a lumpectomy. ALEX PACHECO, [address], [place], [phone], [facility] 05/12/2024 14:13:06 OBGyn Episode No OBEpisode recorded.
== END 2024-06-16 09:36 | disposition home or self-care (01) ==
LOC: HO.HVS 08:51
PROVIDERS: PCP Internal Medicine Nephrology; Visit Provider Surgery Vascular Surgery
DX: I83.11 Varicose veins of right lower extremity with inflammation (principal)
CPT/HCPCS: 99214

== ENCOUNTER → 2024-06-16 08:50 | Outpatient (BNVA) | payer OTHER, SELFPAY | PROVIDERS: PCP Internal Medicine Nephrology; Visit Provider Surgery Vascular Surgery ==

== ENCOUNTER 2024-08-21 07:20 | Outpatient (AMB) | payer OTHER, SELFPAY ==
--- OUTSIDE RECORDS SUMMARY | 2024-08-21 07:22 | XMS_ITS | Data Portability ---
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 DO HAN RODRIGUEZ [facility], OFFICE [address] [place] [address] 05/06/2024 15:01:08 05/13/2024 08:40:43 [id number] [facility] [address] [place] [address] 06/16/2024 11:00:03 07/01/2024 09:04:27 [id number] [facility] [address] [place] [address] 07/13/2024 11:01:02 07/22/2024 11:01:44 [id number] [facility] [address] [place] [address] 08/03/2024 15:00:50 08/06/2024 12:01:25 Health Concerns Section Related Observation LastModified by Organization Detai ls LastModified Time None Recorded Concern Status LastModified by Organization Details LastModified Time None Recorded Advance Directives Directive None Recorded Payers Insurance Date Sequence Insurance Name Policy Number Policy Sunshine Covered Member ID Sunshine Member ID Guarantor Name 08/20/2024 1 [facility] ([facility] Alexia Ellington [id number] Alexia Ellington 12/24/2023 1 [facility]: [facility] ([facility] [id number] Alexia Ellington [id number] Alexia Ellington 12/24/2023 1 [facility] ([facility] [id number] Alexia Ellington [id number] Alexia Ellington OBGyn Episode No OBEpisode recorded.
[2024-08-21 07:28] VITALS: BMI 34.7
--- NOTE | 2024-08-21 07:28 | MHC.OFFVIS ---
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 Accompanied by: Self / Same As Patient Allergies prochlorperazine (From Compazine) Allergy (Verified 08/21/24 07:29) Involuntary Spasms Sulfa (Sulfonamide Antibiotics) Allergy (Verified 08/21/24 07:29) Rash nuts Allergy (Intermediate, Uncoded 08/21/24 07:29) Itching PFSH Medical History Pulmonary embolus Varicose vein of leg Breast cancer Social History Patient Tobacco Use Status: Never used Tobacco Physical Exam Vital Signs: BMI result Body Mass Index 34.7 Office Procedures Vascular Office Procedure Details Details: Diagnosis: Right Leg varicose veins with inflammation Procedure: Right leg Microphlebectomy Anesthesia: Local Infiltration 15 cc, Tumescent: 0 cc. Varicose veins were marked in the standing position on the right leg and the patient was then placed in the supine position. The right lower extremity was prepared and draped to allow knee flexion in the sterile field. The patient had large superficial varicose veins with significant symptoms of pain. It was therefore determined to perform microphlebectomies of the clusters of varicose veins. The patient had bulging varicose veins which were previously marked in the standing position. A small stab incision was made longitudinally directly overlying the varicose vein in the calf and the varicose vein was grasped with a hemostat aided by a vein hook. It was then dissected as far proximally and distally as possible and avulsed. A total of 21 stab incisions were made and the procedure of stab phlebectomies was repeated 21 times. Hemostasis was checked and stab incision sites were closed with steri-strips and sterile dressing was given with gauze and krilex wrap followed by an juan bandage. There were no complications and blood loss was minimal. Post-Op instructions were given and a follow-up appointment was recommended. [id number] - Stab Phlebectomy >20 All charges added?: Procedure code (CPT) selection complete Assessment & Plan Assessment & Plan (1) Varicose veins of right lower extremity with inflammation: Comment: 08/21/2024 - right leg microphlebectomy Code(s): I83.11 - Varicose veins of right lower extremity with inflammation Category: Medical Plan: See op note Coding Level of Care Code Procedure Only Diagnoses Varicose veins of right lower extremity with inflammation I83.11 CPT Codes Details - Vascular 6: 79692 - Stab Phlebectomy >20 ([id number])
== END 2024-08-21 09:18 | disposition home or self-care (01) ==
LOC: HO.HVS 07:21
PROVIDERS: PCP Internal Medicine Nephrology; Visit Provider Surgery Vascular Surgery
DX: I83.11 Varicose veins of right lower extremity with inflammation (principal)
CPT/HCPCS: 37766

== ENCOUNTER → 2024-08-21 07:20 | Outpatient (BNVA) | payer OTHER, SELFPAY | PROVIDERS: PCP Internal Medicine Nephrology; Visit Provider Surgery Vascular Surgery | DX: I83.11 Varicose veins of right lower extremity with inflammation (principal); Z86.711 Personal history of pulmonary embolism | CPT/HCPCS: 37766; J2003 ==

== ENCOUNTER 2024-09-03 09:05 | Outpatient (AMB) | payer OTHER, SELFPAY ==
[2024-09-03 09:24] VITALS: BMI 34.7
--- NOTE | 2024-09-03 09:24 | A.OFFVIS_ITS ---
Vital Signs 09/03/24 09:24 Height 5 ft 2 in Weight 190 lb BMI 34.7 Intake Visit Reasons: 2 week follow up Right Micro 08/21/24 Intake Note: 2 week follow up Right Micro 08/21/24, pt states that her leg does feel better but still has some large VV and clusters. 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 The patient reports significant improvement in symptoms post-procedure, with reduced bruising and overall satisfaction with the outcome. She mentions that the initial pain was manageable once the numbing was effective. The patient also has large varicosities on the left leg, which are symptomatic and extend to the front, forming a significant cluster. The patient is considering further intervention for these varicosities, potentially in an operating room setting under general anesthesia for better results. [facility] Medical History Pulmonary embolus Varicose vein of leg Breast cancer Social History Patient Tobacco Use Status: Never used Tobacco Review of Systems Const Reports as per HPI ENT Reports no additional complaints Card Denies chest pain, Denies chest pain at rest and Denies chest pain with activity Resp Denies chest congestion and Denies cough GI Reports no additional complaints Musc Details: pain over varicosities, aching of lower extremities, swelling, cramping, heaviness and tiredness, itching Denies abnormal gait Skin/Breast Reports pruritus and Denies wounds Neuro Reports no additional complaints and Denies abnormal gait Psych Denies no additional complaints Physical Exam Vital Signs: BMI result Body Mass Index 34.7 Const General: cooperative, healthy appearing and comfortable Orientation/consciousness: oriented to person, oriented to place and oriented to time Neck Carotids: no bruits Chest Chest palpation & inspection: normal inspection of the chest and normal palpation of entire chest wall Resp Effort & Inspection: normal respiratory effort and able to speak in complete sentences Cardio Rate: regular rate Heart sounds: S1 normal heart sound present and S2 normal heart sound present Peripheral pulses: Peripheral pulses 2+ throughout GI Inspection: Yes normal to inspection Skin Other: +2 edema, large rope-like varicosities greater than 4 mm left leg CEAP Classification C4 - skin color changes Ep - Etiology Primary As - superficial veins P - reflux General skin exam: dry skin Neuro General: oriented to person, oriented to place and oriented to time Extrem Right lower extremity: full ROM, normal capillary refill and edema Left lower extremity: full ROM, normal capillary refill and edema Psych Mental Status: mental status grossly normal Assessment & Plan Assessment & Plan (1) Varicose veins of left lower extremity with inflammation: Code(s): I83.12 - Varicose veins of left lower extremity with inflammation Category: Medical Plan: This patient has varicose veins with inflammation. They continue to be a source of discomfort for the patient. The patient has tried conservative treatment with compression, leg elevation and exercise program for over 3 months time. They have been compliant with all treatment. This has provided minimal relief for the patient. I do not anticipate this course of treatment will alter the underlying etiology. The patient has been scheduled for lower extremity sanjay ous treatment inclusive of --- left leg microphlebectomy. Risks, benefits, and complications of this procedure has been discussed in detail with the patient including but not limited to bleeding, infection, and the development of a DVT. The patient has demonstrated a clear understanding and has consented. We will schedule the patient as soon as possible. Thank you for allowing us to partici rosario in this patient's care. If there are any questions or concerns please do not hesitate to contact us. Coding Level of Care Code Est Pt Level 4 (03656) Complex EM visit Add On G2211 Diagnoses Varicose veins of left lower extremity with inflammation I83.12
--- OUTSIDE RECORDS SUMMARY | 2024-09-03 09:29 | XMS_ITS | Data Portability ---
Author Organization [facility], , [facility], OFFICE Address [address] [place] [address] Care Team Providers Care Consulting Nurse Name Role Phone LATOSHA LOZADA Primary Care Provider [phone] Assessment Encounter Date Assessment Date Assessment LastModified [...] was notified that the provider location is [facility] Patient location: home During the visit the [...] was notified that the provider location is [facility] Patient location: home During the visit the [...] was notified that the provider location is [facility] Patient location: home During the visit the patient s medical history and medical record were reviewed. The patient was notified to call our office for worsening or urgent symptoms. eforman Not available 08/03/2024 15:01:52 08/27/2024 08/27/2024 phone therapy :00-10:45 AM Patient agreed to this visit via phone or secure telehealth platform. Patient understands this is a scheduled visit and the usual procedures with regard to billing and confidentiality apply. Patient was notified that the provider location is [facility] Patient location: home During the visit the patient s medical history and medical record were reviewed. The patient was notified to call our office for worsening or urgent symptoms. eforman Not available 08/27/2024 10:01:05 Plan of Treatment Reminders Order Date Submit Date Provider Last Modified By Organization Details Last Modified Time Details Appointments [facility] 60 2024 10:00A M Lucinda Obando Not available Not available Not available Same Day Appt, 30 2024 11:30A M AISSATOU STEVEN Not available Not available Not available Lab None recorded. Referral None recorded. Procedures None recorded. Surgeries None recorded. Imaging None recorded. Medication Orders None recorded. Patient Targets Encounter Date Encounter Id Patient Goals Patient Target Last Modified By Organization Details Last Modified Time 06/16/2024 [id number] [place] with illness, figure out how to make herself happy, not feel guilty about the impact of illness on daughter eforman Not available 06/16/2024 13:22:13 07/13/2024 [id number] [place] with illness, figure out how to make herself happy, not feel guilty about the impact of illness on daughter eforman Not available 07/13/2024 11:01:38 08/03/2024 [id number] [place] with illness, figure out how to make herself happy, not feel guilty about the impact of illness on daughter eforman Not available 08/03/2024 15:01:29 08/27/2024 [id number] [place] with illness, figure out how to make herself happy, not feel guilty about the impact of illness on daughter eforman Not available 08/27/2024 10:00:37 Patient Instructions Encounter Date Encounter Id Patient Instructions Last Modified By Organization Details Last Modified Time 06/16/2024 [id number] Follow-up therap y approximately 2 weeks. The [...] her. eforman Not available 06/16/2024 13:34:53 07/13/2024 [id number] Follow-up therap y approximately 2 weeks. The [...] more meaningful to her. eforman Not available 07/13/2024 11:47:12 08/03/2024 [id number] Follow-up therap y approximately 2 weeks. The [...] from friends eforman Not available 08/03/2024 15:49:45 08/27/2024 [id number] Follow-up therap y approximately 2 weeks. The patient indicated that she is not interested in psychotropic medication at this time eforman Not available 08/27/2024 10:00:38 reported that piper irizarry has 6 month follow up with breast surgeon later today, some anxiety but generally feeling well, trying to get back to living her life got sewing machine out of storage, hopes to resume sewing and quilting, clearing out a bedroom for crafts started reading a book, thinking about how to take care of herself coming to terms with menopause and changing body when growing up was always made to feel less than and unlovable because she wasn't thin, made her feel bad about her weight, she couldn't leave as was stationed in [place] and she didn't have the money to come back would like to find a way to be more accepting of body plans to go to [place] end of Oct. to visit dad who is not in good health eforman Not available 08/27/2024 10:46:00 Reason for Referral None Reported. Results Created [...] furth er confi rmati on Not Available [address], [address], 04/29/2024 14:37:32 04/30/19 25 04/29/2024 HGB A1C estimated average glucose 111.2 mg/dL Not Available [address], [address], 04/29/2024 14:37:32 04/30/19 25 04/30/2024 COMP. METAB OLIC PANEL glucose 105 mg/dL 70-100 high Not Available [address], [address], 04/30/2024 10:55:20 04/30/19 25 04/30/2024 COMP. METAB OLIC PANEL BUN 14 mg/dL 7-18 Not Available [address], [address], 04/30/2024 10:55:20 04/30/19 25 04/30/2024 COMP. METAB OLIC PANEL creatinine 0.7 mg/dL 0.8-1. 3 low Not Available [address], [address], 04/30/2024 10:55:20 04/30/19 25 04/30/2024 COMP. METAB OLIC PANEL B/C 20.0 ratio Not Available [address], [address], 04/30/2024 10:55:20 04/30/1904/30/2024 COMP. METAB OLIC PANEL GFR >=60ML /MIN [...] borat ion (CKD- EPI) Equat ion (Rosey r et. al 2020) as recom regina d by the Natio nal Kid[facility] y [facility] ation . eGFR is based on age, serum creat inine , and sex. CKD-E PI does not calcu late eGFR by race, does not apply to child ysabel (age <18 years ), and shoul d not be used in pregn jannette. Not Available [address], [address], 04/30/2024 10:55:20 04/30/1904/30/2024 COMP. METAB OLIC PANEL sodium 140 mmol/ L 136-14 5 Not Available [address], [address], 04/30/2024 10:55:20 04/30/19 25 04/30/2024 COMP. METAB OLIC PANEL potassium 4.3 mmol/ L 3.5-5. 1 Not Available [address], [address], 04/30/2024 10:55:20 04/30/19 25 04/30/2024 COMP. METAB OLIC PANEL chloride 102 mmol/ L 96-107 Not Available [address], [address], 04/30/2024 10:55:20 04/30/19 25 04/30/2024 COMP. METAB OLIC PANEL anion gap 11.2 5.0-15 .0 Not Available [address], [address], 04/30/2024 10:55:20 04/30/19 25 04/30/2024 COMP. METAB OLIC PANEL CO2 27 mmol/ L 21-32 Not Available [address], [address], 04/30/2024 10:55:20 04/30/19 25 04/30/2024 COMP. METAB OLIC PANEL calcium 9.5 mg/dL 8.5-10 .3 Not Available [address], [address], 04/30/2024 10:55:20 04/30/19 25 04/30/2024 COMP. METAB OLIC PANEL total protein 7.4 g/dL 6.4-8. 2 Not Available [address], [address], 04/30/2024 10:55:20 04/30/19 25 04/30/2024 COMP. METAB OLIC PANEL albumin 3.8 g/dL 3.4-5. 0 Not Available [address], [address], 04/30/2024 10:55:20 04/30/19 25 04/30/2024 COMP. METAB OLIC PANEL globulin 3.6 g/dL Not Available [address], [address], 04/30/2024 10:55:20 04/30/19 25 04/30/2024 COMP. METAB OLIC PANEL A/G 1.1 ratio 0.8-2. 0 Not Available [address], [address], 04/30/2024 10:55:20 04/30/19 25 04/30/2024 COMP. METAB OLIC PANEL total bilirubin 0.40 mg/dL 0.00-1 .00 Not Available [address], [address], 04/30/2024 10:55:20 04/30/19 25 04/30/2024 COMP. METAB OLIC PANEL AST 14 U/L 0-37 Not Available [address], [address], 04/30/2024 10:55:20 04/30/19 25 04/30/2024 COMP. METAB OLIC PANEL ALT 28 U/L 6-63 Not Available [address], [address], 04/30/2024 10:55:20 04/30/19 25 04/30/2024 COMP. METAB OLIC PANEL alk. phos. 122 U/L 50-136 Not Available [address], [address], 04/30/2024 10:55:20 04/30/19 25 04/30/2024 LIPID PANEL cholesterol 252 mg/dL <200 mg/dl Day able 200-2 39 mg/dl Borde rline High >240 mg/dl High Not Available [address], [address], 04/30/2024 10:55:21 04/30/19 25 04/30/2024 LIPID PANEL triglyceride s 229 mg/dL <150 mg/dL Anuja l 150-1 99 mg/dL Borde rline High 200-4 99 mg/dL High >500 mg/dL Very High Not Available [address], [address], 04/30/2024 10:55:21 04/30/19 25 04/30/2024 LIPID PANEL direct HDL 51 mg/dL <40 mg/dl - Major Risk for CHD >60 mg/dl - Negat joshua Risk for CHD Not Available [address], [address], 04/30/2024 10:55:21 04/30/1904/30/2024 LDL - CALCU LATED LDL - calculated [...] r is not neces reed. Not Available [address], [address], 04/30/2024 10:55:22 04/30/1904/30/2024 TSH TSH 1.41 uIU/m L 0.50-6 .00 The Ameri can Colle ge of Endoc rinol ogy and Ameri can Thyro id Assoc iatio n recom mend goal TSH value s betwe en 0.4-4 .0 mIU/m L. Not Available [address], [address], 04/30/2024 14:10:33 Result Notes None recorded. Procedures Surgical History Date Name Laterality Status Provider Name and Address Organization Details Recorded Time 3 Donell - Colonoscopy completed Nate Marley MD [address] [place] [address], [id number], [facility] 07/19/2022 09:00:56 Imaging Results None recorded. Procedure Notes None recorded. Medical Equipment None Reported. Allergies Allergen ID Allergen Name Allergen Category Reaction Reaction Severity Criticality Documentation Date Start Date Code Code System Note Provider Name and Address Organization Details Recorded Time 204904 Compazine medicatio n other Not available Not available 07/16/202202727 6 RxNorm facia l spasm Anai Sanches RN [facility] 3 16:35:04 Medications Name Sig Start Date [...] Relief 50 mcg/actua tion nasal spray,juan pension [place] 1 spray every day by intranas al route. active Not Available Not Available No t Available Micah DVT-PE Treatment 30-Day Starter 5 mg (74 [...] Functional Status Question Answer Note LastModified by [employer] ion Details LastModified Time Do you use any illicit or recreational drugs? No Information not available 06/26/2022 Do you or have you ever used any other forms of tobacco or nicotine? No Information not available 06/26/2022 Are you currently employed? 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 [employer] Information not available 05/06/2024 What is your [...] 09:15:40 Notes:no breast CA, colon [place] , [place] Medical History Condition Response Allergic Rhinitis Y [...] SNOMED-CT Code Diagnosis ICD10 Code Diagnosis Note [id number] [facility] - [address] [address] 04/01/2008 14:33:54 04/01/2008 14:34:20 [id number] Lamont Monet MD , [facility], OFFICE [address] [place] [address] 04/14/2010 08:55:51 04/20/2010 10:17:59 [id number] Lamont Monet MD , [facility], OFFICE [address] [place] [address] 05/12/2010 09:16:37 05/17/2010 12:24:48 [id number] [facility] Radiology , [address] [address] 05/18/2010 09:57:10 05/19/2010 11:41:09 [id number] Rubens Hopkins MD , [facility], OFFICE [address] [place] [address] 10/23/2010 11:54:33 10/23/2010 12:53:26 [id number] Nate Benítez MD , [facility], OFFICE [address] [place] [address] 03/10/2011 13:36:24 03/10/2011 14:14:02 [id number] [facility] CIRCULATION ANALYST Radiology , [facility] [address] [place] [address] 03/12/2011 14:52:59 03/14/2011 15:02:14 [id number] Lamont Monet MD , [facility], OFFICE [address] [place] [phone] 03/20/2011 13:38:36 03/20/2011 14:05:55 [id number] MD HAN Hoffman, [facility], OFFICE [address] [place] [address] 06/14/2011 09:33:05 06/14/2011 10:14:58 [id number] [facility] , [facility] [address] [facility] [place] [address] 07/20/2011 13:00:46 07/24/2011 09:48:19 [id number] Lamont Monet MD FP, [facility], OFFICE [address] [facility] [place] [address] 09/26/2011 11:28:11 09/26/2011 12:40:43 [id number] Lamont Monet MD , [facility], OFFICE [address] [place] [address] 12/06/2011 10:47:45 12/06/2011 11:58:38 [id number] [facility] FP TREATMENT NURSE , [facility], OFFICE [address] [facility] [place] [address] 02/28/2012 08:57:43 02/28/2012 09:14:48 [id number] Lamont Monet MD , [facility], OFFICE [address] [facility] [place] [address] 03/25/2012 08:02:36 03/25/2012 08:24:21 [id number] Lamont Monet MD , [facility], OFFICE [address] [facility] [place] [address] 06/03/2012 13:59:36 06/03/2012 15:06:19 [id number] Lamont Monet MD , [facility], OFFICE [address] [facility] [place] [address] 08/19/2012 11:16:44 08/19/2012 11:47:59 [id number] Lamnot Monet MD FP, [facility], OFFICE [address] [place] [address] 11/07/2012 09:27:18 11/07/2012 10:43:44 [id number] Lamont Monet MD FP, [facility], OFFICE [address] [place] [address] 05/12/2013 11:59:40 05/12/2013 13:00:26 [id number] Lamont Monet MD FP, [facility], OFFICE [address] [place] [address] 05/20/2013 09:37:22 05/20/2013 10:14:04 [id number] Lamont Monet MD , [facility], OFFICE [address] [facility] [place] [address] 05/26/2013 10:03:23 05/26/2013 10:56:26 [id number] Lamont Monet MD , [facility], OFFICE [address] [place] [address] [place] [address] 07/22/2013 10:28:16 07/22/2013 11:16:35 [id number] Lamont Monet MD , [facility], OFFICE [address] [place] [address] [place] [address] 08/24/2013 13:25:42 08/24/2013 13:59:50 [id number] Lamont Monet MD , [facility], OFFICE [address] [place] [address] [place] [address] 11/11/2013 08:53:04 11/11/2013 09:43:45 [id number] Lamont Monet MD , [facility], OFFICE [address] [place] [address] [place] [address] 12/09/2013 11:34:59 12/09/2013 11:58:53 [id number] Kalani Cooley , [facility], OFFICE [address] [facility] [place] [address] 05/27/2014 13:28:00 05/27/2014 14:06:15 [id number] Lamont Monet MD , [facility], OFFICE [address] [place] [address] [place] [address] 06/09/2014 12:51:30 06/09/2014 13:28:34 [id number] Kalani Cooley , [facility], OFFICE [address] [facility] [place] [address] 08/17/2014 08:27:08 08/17/2014 09:02:03 [id number] Alex Chu MD , [facility], OFFICE [address] [place] [address] 12/16/2014 12:02:49 12/23/2014 14:38:12 [id number] Lamont Monet MD FP, [facility], OFFICE [address] [facility] [place] [address] 12/27/2014 11:14:13 12/27/2014 12:20:53 [id number] Rubens Hopkins MD FP, [facility], OFFICE [address] [facility] [place] [address] 01/11/2015 07:39:12 01/11/2015 08:23:17 [id number] Art Meyer MD , [facility], OFFICE [address] [place] [address] 01/29/2015 10:00:00 01/29/2015 10:51:45 [id number] Zehra Mckinnon MD , [facility], OFFICE [address] [facility] [place] [address] 03/28/2015 10:23:15 03/28/2015 11:50:28 [id number] Brittanie Sylvester D.O. , [facility], OFFICE [address] [facility] [place] [address] 08/22/2016 13:08:59 08/22/2016 13:30:56 [id number] Yaritza Casper NP FP, [facility], OFFICE [address] [facility] [place] [address] 01/10/2017 08:55:17 01/10/2017 09:34:05 [id number] LOIDA Shin, [facility], OFFICE [address] [facility] [place] [address] 01/22/2018 08:46:28 01/22/2018 09:21:15 [id number] Peter Bal MD FP, [facility], OFFICE [address] [facility] [place] [address] 02/14/2018 08:34:41 02/14/2018 09:29:36 [id number] Peter Bal MD FP, [facility], OFFICE [address] [facility] [place] [address] 06/09/2018 11:29:22 06/09/2018 14:10:57 [id number] LOIDA Shin, [facility], OFFICE [address] [facility] [place] [address] 07/16/2018 10:25:27 07/16/2018 11:02:35 [id number] Rubens Hopkins MD , [facility], OFFICE [address] [facility] [place] [address] 08/19/2018 09:58:26 08/19/2018 11:22:35 [id number] Kalani Cooley , [facility], OFFICE [address] [facility] [place] [address] 12/10/2018 12:10:27 12/10/2018 14:26:12 [id number] Peter Bal MD , [facility], OFFICE [address] [place] [address] [place] [address] 01/15/2019 09:24:18 01/15/2019 10:22:56 [id number] Yaritza Capser NP , [facility], OFFICE [address] [place] [address] [place] [address] 02/05/2019 10:52:00 02/05/2019 11:31:40 [id number] Kalani Cooley , [facility], OFFICE [address] [place] [address] [place] [address] 03/04/2019 10:50:29 03/05/2019 11:43:52 [id number] Nate Benítez MD , [facility], OFFICE [address] [place] [address] 06/03/2020 09:11:21 06/08/2020 13:50:18 [id number] Jayda Jules MD , [facility], OFFICE [address] [place] [address] 06/05/2022 17:01:20 06/05/2022 17:32:33 [id number] Jayda Jules MD , [facility], OFFICE [address] [place] [address] 06/26/2022 10:06:57 06/26/2022 16:56:04 [id number] Nate Marley MD [facility] , [facility] [address] [place] [address] 07/19/2022 07:51:18 07/19/2022 13:06:42 [id number] Cindy Delvalle, PT Physical Therapy, [address] [place] [address] 07/27/2022 07:19:58 07/30/2022 08:18:29 [id number] Cindy Delvalle, PT Physical Therapy, [address] [place] [address] 08/03/2022 07:28:39 08/03/2022 10:10:58 [id number] Cindy Delvalle, PT Physical Therapy, [address] [place] [address] 08/10/2022 07:29:32 08/10/2022 08:53:39 [id number] Cindy Delvalle, PT Physical Therapy, [address] [place] [address] 08/17/2022 07:57:53 08/17/2022 09:16:19 [id number] JOSI Mckeon, [facility], OFFICE [address] [place] [address] 08/29/2022 07:54:13 08/29/2022 12:19:36 [id number] DO HAN RODRIGUEZ [facility], OFFICE [address] [place] [address] 12/24/2023 08:07:23 12/28/2023 12:14:38 [id number] MD HAN Uribe [facility], OFFICE [address] [place] [address] 01/17/2024 14:50:23 01/17/2024 15:20:20 [id number] DO HAN RODRIGUEZ [facility], OFFICE [address] [place] [address] 02/12/2024 08:51:43 02/13/2024 18:07:44 [id number] DO HAN RODRIGUEZ [facility], OFFICE [address] [place] [address] 05/06/2024 15:01:08 05/13/2024 08:40:43 [id number] [facility] [address] [address] 06/16/2024 11:00:03 07/01/2024 09:04:27 [id number] Briana Macedo [facility], [address] [address] 07/13/2024 11:01:02 07/22/2024 11:01:44 [id number] Briana Macedo [address] [address] 08/03/2024 15:00:50 08/06/2024 12:01:25 [id number] Briana Macedo [facility], [address] [address] 08/27/2024 10:00:08 08/27/2024 10:46:40 Health Concerns Section Related Observation LastModified by Organization Detai ls LastModified Time None Recorded Concern Status LastModified by Organization Details LastModified Time None Recorded Advance Directives Directive None Recorded Payers Insurance Date Sequence Insurance Name Policy Number Policy Sunshine Covered Member ID Sunshine Member ID Guarantor Name 08/26/2024 1 [facility] Alexia Ellington [id number] Alexia Ellington 12/24/2023 1 [facility]) [id number] Alexia Ellington [id number] Alexia Ellington 12/24/2023 1 [facility] ([facility]) [id number] Alexia Ellington [id number] Alexia Ellington OBGyn Episode No OBEpisode recorded.
== END 2024-09-03 09:46 | disposition home or self-care (01) ==
LOC: HO.HVS 09:06
PROVIDERS: PCP Internal Medicine Nephrology; Visit Provider Surgery Vascular Surgery
DX: I83.12 Varicose veins of left lower extremity with inflammation (principal)
CPT/HCPCS: 99214